=== PATIENT | female | born 1955 | race Caucasian/White ===

== ENCOUNTER 2018-05-29 14:37 | Inpatient (IN) ==
[2018-05-29] MEDS ORDERED: IPRATROPIUM/ALBUTEROL 3 ML AMPUL.NEB NEB ONE ×3 (14:43→18:40)
[2018-05-29] MEDS ORDERED: 0.9 % SODIUM CHLORIDE 1,000 ML IV ONE (14:43)
[2018-05-29] MEDS ORDERED: methylPREDNISolone SOD SUCC 125 MG/2 ML VIAL IV ONE (14:50)
--- NOTE | 2018-05-29 14:52 | Emergency Department Note ---
SOB HPI - General Chief Complaint: Shortness of Breath/Dyspnea Stated Complaint: Shortness of breath Time Seen by Provider: 05/29/18 14:42 Source: patient Mode of arrival: ambulatory Limitations: no limitations - History of Present Illness This patient has a history of COPD and has been a little short of breath and wheezing with cough since last Wednesday which was about 6 or 7 days ago. She says she try to sleep today but woke up and sweats and was too short of breath so came to the hospital. Her cough does bring up some yellow-green phlegm. She continues to smoke a pack per day despite her COPD. No chest pain. - Related Data Previous Rx's Medication Instructions Recorded albuterol sulfate HFA 90 See Dose Instructions INHALATION 07/08/17 mcg/actuation aerosol inhaler Q4H PRN #36 g alendronate 70 mg tablet 70 mg PO QWEEK #52 tab 07/08/17 budesonide-formoterol HFA 160 2 inh INHALATION TID #18 g 07/08/17 mcg-4.5 mcg/actuation aerosol inhaler hydrocodone 10 mg-acetaminophen 1 tab PO Q4H PRN #100 tab 04/15/18 325 mg tablet Allergies Allergy/AdvReac Type Severity Reaction Status Date / Time lorazepam [From Ativan] Allergy Unknown Confusion Verified 01/20/18 07:54 silver Allergy Unknown Rash Verified 01/20/18 07:54 cats Allergy Unknown Rash Uncoded 01/20/18 07:54 cherries Allergy Unknown Rash Uncoded 01/20/18 07:54 fluconazole Allergy Unknown Hallucinati Uncoded 01/20/18 07:54 ng Review of Systems All systems ED: reviewed and negative except as stated. Past Medical History - Past Medical History Medical history: Reports: asthma, COPD, osteoporosis, other (Pulmonary hypertension, uterine fibroids, chronic low back pain, adrenal adenoma) Psychiatric history: Reports: no psych history MANAGER RETENTION history: Reports: bilateral tubal ligation Surgical history ED: Reports: orthopedic, other (Elbow replacement, wrist), other (Partial nephrectomy right, bowel obstruction, adenoids) - Social History smoking status: Current every day smoker Alcohol use: Reports: Heavy Physical Exam Limitations: no limitations General appearance: alert Head: atraumatic Eye: Present: normal appearance ENT: normal exam Neck: Present: normal inspection Chest: Present: normal inspection Respiratory: Present: wheezes, prolonged expiratory phase Cardiovascular: Present: regular rate, normal rhythm, normal heart sounds Abdominal: Present: soft. Absent: distention, tenderness Neurological: Present: alert Psychiatric: Present: normal affect Skin: Present: warm, dry, intact Course Vital Signs Temperature 98.2 F 05/29/18 14:39 Pulse Rate 107 H 05/29/18 14:39 Respiratory Rate 26 H 05/29/18 14:39 Blood Pressure 143/127 05/29/18 14:39 Pulse Oximetry (%) 66 L 05/29/18 14:39 Temperature 98.2 F 05/29/18 14:39 Pulse Rate 87 05/29/18 18:32 Respiratory Rate 23 H 05/29/18 18:32 Blood Pressure 159/87 05/29/18 18:31 Pulse Oximetry (%) 94 05/29/18 18:32 Shortness of Breath/Dyspnea - MDM Narrative Medical decision making narrative: Chest x-ray looked okay and lab work was unremarkable. She was given 3 DuoNeb Solu-Medrol Zithromax and did not feel like she could go home at the end of 4- 1/2 hours. She was unable to blow peak flow. - Lab Data Lab results reviewed: Yes I reviewed the patient's lab results. Result diagrams: 05/29/18 14:49 05/29/18 14:49 Lab Results 05/29/18 05/29/18 05/29/18 Range/Units 14:44 14:49 14:49 WBC 12.0 H (4.5-11.0) K/mcL RBC 5.55 H (4.00-5.20) M/mcL Hgb 16.9 H (12.0-15.0) g/dL Hct 52.2 H (36.0-48.0) % MCV 94.0 (80.0-100.0) fL MCH 30.4 (26.0-34.0) pg MCHC 32.4 (31.0-36.0) g/dL RDW 14.6 H (11.5-14.5) % Plt Count 232 (140-440) K/mcL MPV 10.7 H (7.4-10.4) fL Gran % 64.6 (38.0-78.0) % Lymph % (Auto) 23.7 (15.5-49.0) % Nash % (Auto) 10.9 (1.0-12.0) % Eos % (Auto) 0.3 (0.0-7.0) % Baso % (Auto) 0.5 (0.0-2.0) % Gran # 7.7 (1.8-8.0) K/mcL Lymph # (Auto) 2.8 (1.5-4.8) K/mcL Nash # (Auto) 1.3 H (0.1-0.9) K/mcL Eos # (Auto) 0 (0.0-0.7) K/mcL Baso # (Auto) 0.1 (0.0-0.3) K/mcL VBG Lactic Acid (0.5-2.0) mmol/L Sodium 140 (133-145) mmol/L Potassium 4.2 (3.3-5.1) mmol/L Chloride 96 (96-108) mmol/L Carbon Dioxide 29 (22-30) mmol/L Anion Gap 15.0 (8-16) BUN 8 (8-23) mg/dl Creatinine 0.6 (0.6-1.1) mg/dl GFR Calculation 97 Glucose 102 (70-105) mg/dL Calcium 9.4 (8.6-10.4) mg/dl Total Bilirubin 0.2 (0.0-1.0) mg/dL AST 33 (0-37) U/l ALT 29 (0-40) U/l Alkaline Phosphatase 73 (39-117) U/L Total Creatine Kinase 129 (24-170) IU/L CK-MB (CK-2) 7.1 H (0-2.9) ng/ml Troponin T 0.02 (0-0.03) ng/ml Total Protein 7.3 (5.9-8.4) gm/dL Albumin 3.9 (3.2-5.2) gm/dL Globulin 3.4 (2.2-3.7) gm/dL Albumin/Globulin Ratio 1.1 (1.0-2.3) Procalcitonin (<0.10) ng/mL 05/29/18 05/29/18 05/29/18 Range/Units 14:50 14:50 14:50 WBC (4.5-11.0) K/mcL RBC (4.00-5.20) M/mcL Hgb (12.0-15.0) g/dL Hct (36.0-48.0) % MCV (80.0-100.0) fL MCH (26.0-34.0) pg MCHC (31.0-36.0) g/dL RDW (11.5-14.5) % Plt Count (140-440) K/mcL MPV (7.4-10.4) fL Gran % (38.0-78.0) % Lymph % (Auto) (15.5-49.0) % Nash % (Auto) (1.0-12.0) % Eos % (Auto) (0.0-7.0) % Baso % (Auto) (0.0-2.0) % Gran # (1.8-8.0) K/mcL Lymph # (Auto) (1.5-4.8) K/mcL Nash # (Auto) (0.1-0.9) K/mcL Eos # (Auto) (0.0-0.7) K/mcL Baso # (Auto) (0.0-0.3) K/mcL VBG Lactic Acid 2.8 H (0.5-2.0) mmol/L Sodium (133-145) mmol/L Potassium (3.3-5.1) mmol/L Chloride (96-108) mmol/L Carbon Dioxide (22-30) mmol/L Anion Gap (8-16) BUN (8-23) mg/dl Creatinine (0.6-1.1) mg/dl GFR Calculation Glucose (70-105) mg/dL Calcium (8.6-10.4) mg/dl Total Bilirubin (0.0-1.0) mg/dL AST (0-37) U/l ALT (0-40) U/l Alkaline Phosphatase (39-117) U/L Total Creatine Kinase 126 (24-170) IU/L CK-MB (CK-2) (0-2.9) ng/ml Troponin T (0-0.03) ng/ml Total Protein (5.9-8.4) gm/dL Albumin (3.2-5.2) gm/dL Globulin (2.2-3.7) gm/dL Albumin/Globulin Ratio (1.0-2.3) Procalcitonin < 0.05 (<0.10) ng/mL - Radiology Data Radiology results reviewed: Yes I reviewed the patient's radiology results. Disposition Pt seen by OPERATIONS MANAGER ASSISTANT/PA only: No Clinical Impression: COPD exacerbation Disposition: Xfer As Inpt ([facility]) Condition: Good Referrals: Isaias Viveros MD [Primary Care Provider] - Time of Disposition: 19:07
[2018-05-29] MEDS ORDERED: ASPIRIN 81 MG TAB.CHEW CHEWED ONE (14:53)
[2018-05-29] MEDS ORDERED: AZITHROMYCIN 500 MG in DEXTROSE 5% IN WATER 250 ML IV ONE (15:16)
[2018-05-29 15:42] LABS: Basophils # (Auto) 0.1 K/mcL (0.0-0.3); Basophils % (Auto) 0.5 % (0.0-2.0); Eosinophils # (Auto) 0 K/mcL (0.0-0.7); Eosinophils % (Auto) 0.3 % (0.0-7.0); Granulocytes % (Auto) 64.6 % (38.0-78.0); Lymphocytes # (Auto) 2.8 K/mcL (1.5-4.8); Lymphocytes % (Auto) 23.7 % (15.5-49.0); Mean Corpuscular HGB Conc 32.4 g/dL (31.0-36.0); Monocytes # (Auto) 1.3 K/mcL (0.1-0.9); Monocytes % (Auto) 10.9 % (1.0-12.0); Platelet Count 232 K/mcL (140-440); RBC 5.55 M/mcL (4.00-5.20); Red Cell Distribution Width 14.6 % (11.5-14.5)
[2018-05-29 16:05] LABS: ALT/SGPT 29 U/l (0-40); Albumin 3.9 gm/dL (3.2-5.2); Albumin/Globulin Ratio 1.1 (1.0-2.3); Alkaline Phosphatase 73 U/L (39-117); Blood Urea Nitrogen 8 mg/dl (8-23); Creatine Kinase 129 IU/L (24-170); Creatine Kinase MB 7.1 ng/ml (0-2.9)
[2018-05-29] MEDS ORDERED: LACTATED RINGERS 1,000 ML IV ONE (16:20)
--- NOTE | 2018-05-29 18:10 | XRay Report ---
CLINICAL INFORMATION: dyspnea COMPARISON: 12/20/2017 FINDINGS: Heart size, mediastinum and pulmonary vessels are unremarkable. COPD changes again noted. Small infiltrate appears to be developing in the posterior medial right lower lobe. No effusions. IMPRESSION: Small developing infiltrate - posterior medial right lower lobe Underlying COPD Interpreted and Authenticated by: Steven Awad 05/29/18
[2018-05-29] MEDS ORDERED: ACETAMINOPHEN 325 MG TABLET PO PRN (20:21)
[2018-05-29] MEDS ORDERED: oxyCODONE HCL 5 MG TABLET PO PRN (20:21)
[2018-05-29] MEDS ORDERED: ONDANSETRON 4 MG/2 ML VIAL IV PRN (20:21)
[2018-05-29] MEDS ORDERED: NALOXONE HCL 0.4 MG/ML VIAL IV PRN (20:21)
[2018-05-29] MEDS: ALBUTEROL SULFATE 2.5 MG/3 ML NEBULIZER NEB PRN ×2 (20:40→22:53)
[2018-05-29] MEDS: LEVOFLOXACIN 750 MG/150 ML BAG IV SCH (21:02)
[2018-05-29] MEDS: HEPARIN 5,000 UNIT/ML VIAL SQ SCH (21:03)
[2018-05-29] MEDS ORDERED: MAGNESIUM SULFATE 2 GM/50 ML BAG IV ONE (21:18)
[2018-05-29] MEDS ORDERED: NICOTINE 21 MG PATCH TOPICAL ONE (21:19)
[2018-05-29] MEDS ORDERED: ALBUTEROL SULFATE 1 PUFF INHALER INH PRN (21:22)
--- NOTE | 2018-05-29 21:28 | Internal Med History&Physical ---
Medical - H&P: HPI Patient information: Note initiated : 05/29/18 at 9:24 pm Service Date, if different from initiated Date: [] Patient: Emelia Candelaria a 63 y/o F admitted on 05/29/18 for Shortness of breath. Chief Complaint: [] History of present illness: Ms. Candelaria is a 63 year old F with history of COPD, active smoker presents to the emergency room for shortness of breath going on for the last 6 days. The pa bereket notes her symptoms started on Wednesday and has progressively gotten worse since then. Last week and she was at the function from [facility] with a lot of people. She notes her symptoms started a day after that. She admits to having some cough with yellowish sputum subjective sensations of fever runny nose watery eyes. Her symptoms have progressively gotten worse to a point that she is unable to ambulate even within the room without significant shortness of breath. The patient therefore came to the emergency room for further evaluation. The patient admits to having cough associated with chest pain. She denies any nausea vomiting had some diarrhea denies any new joint pains no depression or anxiety denies any new skin rashes any changes in vision hearing or difficulty in swallowing she denies any bleeding or black stools. In the emergency room the patient was afebrile, heart rate 85 blood pressure 133 x 77 saturating in the 60s on room air. The patient had a WBC count of 12.2, hemoglobin 16.6 platelets 232 Sodium 140 potassium 4.2 bicarbonate 29 creatinine 0.6 glucose 97 lactic acid 2.8 troponin negative CK 126 pro calcitonin less than 0.05. Chest x-ray shows COPD and a new developing infiltrate EKG shows sinus tachycardia Patient is being admitted to the hospital for further management, in the emergency room patient received duo nebs steroids and Zithromax All systems: reviewed and no additional remarkable complaints except as stated (As per HPI rest negative) Medical - H&P: PMH Medical history: Medical History (Last Reviewed 01/20/18 @ 08:01 by Isaias Viveros MD) Osteoporosis (Chronic) Tobacco abuse (Chronic) Renal mass (Chronic 07/24/14) Pulmonary hypertension (Chronic) Kidney mass (Chronic 11/20/13) Uterine fibroid (Chronic) Degeneration of lumbar intervertebral disc (Chronic) Chronic pain syndrome (Chronic) COPD (chronic obstructive pulmonary disease) (Chronic) Asthma (Chronic) Alcohol abuse (Chronic) Adrenal adenoma (Chronic) Abdominal pain (Resolved 08/18/13) Abnormal finding on radiology exam (Resolved) Chronic pain (Resolved) Diarrhea (Resolved) Disorder of kidney and ureter (Resolved) Hypoalbuminemia (Resolved) Hyponatremia (Resolved) Malnutrition (Resolved) Metabolic acidosis (Resolved) Nocturia (Resolved) Pelvic abscess (Resolved 09/19/13) Sepsis (Resolved 08/18/13) Urinary stream slowing (Resolved) Surgical history: Past Surgical History (Last Updated 01/20/18 @ 08:34 by Isaias Viveros MD) Hx of partial nephrectomy (Chronic 07/24/14) History of liver biopsy (Resolved 07/24/14) Hx of elbow surgery (Resolved) Hx of hand surgery (Resolved) Pertinent family history: Family History (Last Reviewed 01/20/18 @ 08:01 by Isaias Viveros MD) mother Malignant neoplasm of bone Malignant neoplasm sister Malignant neoplasm of breast Malignant neoplasm father Cardiac disease Medical - H&P: Meds Home Medications Medication Instructions Recorded Confirmed Type albuterol sulfate HFA 90 See Dose Instructions INHALATION 07/08/17 05/29/18 Rx mcg/actuation aerosol inhaler Q4H PRN #36 g alendronate 70 mg tablet 70 mg PO QWEEK #52 tab 07/08/17 05/29/18 Rx budesonide-formoterol HFA 160 2 inh INHALATION TID #18 g 07/08/17 05/29/18 Rx mcg-4.5 mcg/actuation aerosol inhaler hydrocodone 10 mg-acetaminophen 1 tab PO Q4H PRN #100 tab 04/15/18 05/29/18 Rx 325 mg tablet Allergies Allergy/AdvReac Type Severity Reaction Status Date / Time silver Allergy Mild Rash Verified 05/29/18 20:28 lorazepam [From Ativan] AdvReac Mild Confusion Verified 05/29/18 20:28 cats Allergy Mild Rash Uncoded 05/29/18 20:28 cherries Allergy Mild Rash Uncoded 05/29/18 20:28 fluconazole AdvReac Mild Hallucinati Uncoded 05/29/18 20:28 ng Medical - H&P: Exam - Constitutional Vitals: Temp Pulse Resp BP Pulse Ox 98.2 F 95 H 24 H 150/90 92 05/29/18 14:39 05/29/18 21:20 05/29/18 21:20 05/29/18 20:01 05/29/18 20:01 Exam: GENERAL: The patient is a well-developed, well-nourished in no apparent distress. Is alert and oriented x3. VITAL SIGNS: Reviewed and as noted elsewhere. HEENT: Head is normocephalic and atraumatic. Extraocular muscles are intact. Pupils are equal, round, and reactive to light. Nares appeared normal. Mouth appears any without lesions. Mucous membranes are dry. NECK: Normal to inspection, Supple, No lymphadenopathy or thyromegaly. LUNGS: Air entry equal on both sides, significantly diminished air entry bilaterally, prolonged expiratory phase, bilateral expiratory wheezing noted. Patient is speaking 6-8 words at a time, and is using some accessory muscles. She had chest walked a short distance and is not back yet to her baseline respiratory status HEART: Regular rate and rhythm normal, S1 and S2 heard, no Gallop, S3 or Rub Noted, No Gross murmur heard. [Distant heart sounds] ABDOMEN: Soft, nontender, and nondistended. Positive bowel sounds. No hepatosplenomegaly was noted. EXTREMITIES: No cyanosis, clubbing, rash, lesions or edema. NEUROLOGIC: Cranial nerves II through XII are grossly intact. Motor and Sensory System Grossly Intact PSYCHIATRIC: Normal affect, Normal Mood. Appropriate Behavior. SKIN: No ulceration or wounds noted, No jaundice, No rash noted. Medical - H&P: Reslt - Labs CBC & Chem 7: 05/29/18 14:49 05/29/18 14:49 Labs: Short CBC 05/29/18 Range/Units 14:49 WBC 12.0 H (4.5-11.0) K/mcL Hgb 16.9 H (12.0-15.0) g/dL Hct 52.2 H (36.0-48.0) % Plt Count 232 (140-440) K/mcL [facility] 05/29/18 14:49 Sodium 140 Potassium 4.2 Chloride 96 Carbon Dioxide 29 BUN 8 Creatinine 0.6 Glucose 102 Calcium 9.4 Cardiac Enzymes 05/29/18 05/29/18 05/29/18 Range/Units 14:44 14:49 14:50 Total Creatine Kinase 129 126 (24-170) IU/L CK-MB (CK-2) 7.1 H (0-2.9) ng/ml Troponin T 0.02 (0-0.03) ng/ml Liver Function 05/29/18 Range/Units 14:49 Total Bilirubin 0.2 (0.0-1.0) mg/dL AST 33 (0-37) U/l ALT 29 (0-40) U/l Alkaline Phosphatase 73 (39-117) U/L Albumin 3.9 (3.2-5.2) gm/dL Medical - H&P: A/P - Narrative A/P Narrative: A/P Acute exacerbation of COPD Acute hypoxic resp failure Pneumonia with COPD Active smoker 2.5pack daily Lactic acidosis Degenerative joint disease. Osteoporosis Pulmonary Hypertension Plan Admit to med surg Monitor closely, continuos pulse oximeter if worsens, will move to PCU, start on bipap Duonebs q4hrs, albuterol q2hprn PO prednisone IV levofloxacin 2gms IV mag sulphate for bronchodilation. nicotine patch DVT hep sq Diet regular Full code. Social History - Social History occupational status: disabled - Tobacco smoking status: Current every day smoker - Alcohol alcohol intake frequency: 2+ drinks per day - Substance use substance use type: marijuana
[2018-05-29] MEDS: 0.9 % SODIUM CHLORIDE 10 ML SYRINGE IV SCH (22:00)
[2018-05-29] MEDS: Budesonide/Formoterol Fumarate [Symbicort] 160-4.5 mcg Inhaler INH SCH (22:54)
[2018-05-29] MEDS: IPRATROPIUM/ALBUTEROL 3 ML AMPUL.NEB NEB SCH (22:56)
[2018-05-30] MEDS: 0.9 % SODIUM CHLORIDE 10 ML SYRINGE IV SCH ×4 (00:43→22:43)
[2018-05-30] MEDS: ALBUTEROL SULFATE 2.5 MG/3 ML NEBULIZER NEB PRN (01:09)
[2018-05-30] MEDS: IPRATROPIUM/ALBUTEROL 3 ML AMPUL.NEB NEB SCH ×6 (04:11→23:05)
[2018-05-30 06:20] LABS: Basophils # (Auto) 0 K/mcL (0.0-0.3); Basophils % (Auto) 0.2 % (0.0-2.0); Eosinophils # (Auto) 0 K/mcL (0.0-0.7); Eosinophils % (Auto) 0 % (0.0-7.0); Granulocytes % (Auto) 78.6 % (38.0-78.0); Lymphocytes # (Auto) 0.9 K/mcL (1.5-4.8); Mean Cell Volume 94.1 fL (80.0-100.0); Mean Corpuscular HGB Conc 32.7 g/dL (31.0-36.0); Monocytes # (Auto) 0.5 K/mcL (0.1-0.9); Monocytes % (Auto) 7.2 % (1.0-12.0); Platelet Count 223 K/mcL (140-440); RBC 5.15 M/mcL (4.00-5.20); Red Cell Distribution Width 14.5 % (11.5-14.5)
[2018-05-30 06:33] LABS: ALT/SGPT 26 U/l (0-40); Albumin 3.5 gm/dL (3.2-5.2); Albumin/Globulin Ratio 1.1 (1.0-2.3); Alkaline Phosphatase 63 U/L (39-117); Bilirubin,Direct < 0.2 mg/dL (0.0-0.3); Blood Urea Nitrogen 10 mg/dl (8-23); Gamma Glutamyl Transpeptidase 23 U/L (5-36); Uric Acid 2.5 mg/dL (2.5-8.0)
[2018-05-30] MEDS: Budesonide/Formoterol Fumarate [Symbicort] 160-4.5 mcg Inhaler INH SCH ×3 (07:25→22:45)
[2018-05-30] MEDS: HEPARIN 5,000 UNIT/ML VIAL SQ SCH ×2 (08:28→22:43)
[2018-05-30] MEDS: OSELTAMIVIR PHOSPHATE 75 MG CAPSULE PO SCH ×2 (08:28→22:43)
[2018-05-30] MEDS: NICOTINE 21 MG PATCH TOPICAL SCH (08:28)
[2018-05-30] MEDS: predniSONE 20 MG TABLET PO SCH (08:28)
[2018-05-30] MEDS: LEVOFLOXACIN 750 MG/150 ML BAG IV SCH (13:24)
--- NOTE | 2018-05-30 15:32 | Internal Med Progress Note ---
Medical - PN: Subj Patient information: Note initiated : 05/30/18 at 3:29 pm Service Date, if different from initiated Date: [] Patient: Emelia Candelaria a 63 y/o F admitted on 05/29/18 for Shortness of breath. Chief Complaint: [] Interval history: Ms. Candelaria is a 63 year old F with history of COPD, active smoker presents to the emergency room for shortness of breath going on for the last 6 days. The patient notes her symptoms started on Wednesday and has progressively gotten worse since then. Last week and she was at the [facility] from [facility] with a lot of people. She notes her symptoms started a day after that. She admits to having some cough with yellowish sputum subjective sensations of fever runny nose watery eyes. Her symptoms have progressively gotten worse to a point that she is unable to ambulate even within the room without significant shortness of breath. The patient therefore came to the emergency room for further evaluation. The patient admits to having cough associated with chest pain. She denies any nausea vomiting had some diarrhea denies any new joint pains no depression or anxiety denies any new skin rashes any changes in vision hearing or difficulty in swallowing she denies any bleeding or black stools. In the emergency room the patient was afebrile, heart rate 85 blood pressure 133 x 77 saturating in the 60s on room air. The patient had a WBC count of 12.2, hemoglobin 16.6 platelets 232 Sodium 140 potassium 4.2 bicarbonate 29 creatinine 0.6 glucose 97 lactic acid 2.8 troponin negative CK 126 pro calcitonin less than 0.05. Chest x-ray shows COPD and a new developing infiltrate EKG shows sinus tachycardia Patient is being admitted to the hospital for further management, in the emergency room patient received duo nebs steroids and Zithromax 05/30 Patient seen and examined, she does not feel significant improvement however to me appears somewhat more comfortable. She still has shortness of breath and cough. Labs are stable. Influenza A test is positive started the patient on Tamiflu Pertinent ROS: Denies headache, dizziness Denies chest pain, palpitations Shortness of breath and cough present Denies abdominal pain, nausea or vomiting. - Constitutional Vitals: Vital Signs Temp Pulse Resp BP Pulse Ox 97.1 F 85 22 128/76 96 05/30/18 15:01 05/30/18 15:01 05/30/18 15:01 05/30/18 15:01 05/30/18 15:01 Period Temp Pulse Resp BP Sys/Tomas Pulse Ox Last 24 Hr 97.1 F-98.2 F 72-99 15-38 124-159/73-106 91-100 Intake and Output 05/30/18 05/30/18 05/30/18 05:59 13:59 21:59 Intake Total 1050 500 800 Output Total 775 200 150 Balance 275 300 650 Weight 101 lb Patient Weight 05/31/18 05:59 Weight 101 lb Intake & Output: Intake & Output 05/30/18 05/30/18 05/30/18 05:59 13:59 21:59 Intake Total 1050 500 800 Output Total 775 200 150 Balance 275 300 650 Weight 101 lb Intake: IV 150 Oral 900 500 800 Output: Void Amount 775 200 150 Other: Meal Lunch Percent of Meal Consumed 50% Feeding Ability Independent Urine Appearance Cloudy Urine Color Straw Dark Yellow Dark Yellow Urine Odor Normal Strong Stool Size Small Stool Color Brown Stool Consistency Soft # Voids 1 # Bowel Movements 1 Exam: Constitutional; Afebrile, cooperative, alert, not in distress. Eyes- No icterus, , No periorbital swelling Ears- Ext ear normal, hearing normal to conversation. Neck- Midline trachea, supple Respiratory system: Air Entry equal on both sides, decreased air entry bilaterally however somewhat better than yesterday, patient continues to have bilateral expiratory wheezing. appears in mild resp distress CVS- Rate rhythm regular, S1,S2 heard, no gallop, no rub. Abdomen- Soft nontender abdomen, no organomegaly, no tenderness, no guarding or rigidity, WEATHER [employer]ECA[employer]- AOOx3, moving all extremities, no gross focal deficit noted. Medical - PN: Obj Da - Labs CBC & Chem 7: 05/30/18 04:14 05/30/18 04:14 Labs: Abnormal Lab Results 05/30/18 05/30/18 05/29/18 04:14 04:14 14:50 WBC RBC Hgb 15.8 H Hct 48.4 H RDW MPV Gran % 78.6 H Lymph % (Auto) 14.0 L Lymph # (Auto) 0.9 L Otero # (Auto) VBG Lactic Acid 2.8 H Creatinine 0.5 L Glucose 113 H Lactate Dehydrogenase 323 H CK-MB (CK-2) 05/29/18 05/29/18 14:49 14:49 WBC 12.0 H RBC 5.55 H Hgb 16.9 H Hct 52.2 H RDW 14.6 H MPV 10.7 H Gran % Lymph % (Auto) Lymph # (Auto) Otero # (Auto) 1.3 H VBG Lactic Acid Creatinine Glucose Lactate Dehydrogenase CK-MB (CK-2) 7.1 H Meds: Medications Acetaminophen (Tylenol) 650 mg PO Q6HP PRN PRN Reason: PAIN/FEVER > 101 Albuterol Sulfate (Ventolin) 2.5 mg NEB Q2HP PRN PRN Reason: Shortness Of Breath Last Admin: 05/30/18 01:09 Dose: 2.5 mg Documented by: Albuterol Sulfate (Ventolin) 1 puff INH Q4H PRN PRN Reason: asthma Albuterol/Ipratropium (Duoneb) 3 ml NEB Q4HRT [facility] Last Admin: 05/30/18 15:00 Dose: 3 ml Documented by: Heparin Sodium (Porcine) (Heparin) 5,000 unit SQ Q12 [facility] Last Admin: 05/30/18 08:28 Dose: 5,000 unit Documented by: Levofloxacin (Levaquin) 750 mg in 150 mls @ 100 mls/hr IV Q24H [facility] Last Admin: 05/30/18 13:24 Dose: 100 mls/hr Documented by: Naloxone HCl (Narcan) 0.1 mg IV Q2MIN PRN PRN Reason: Opiate Reversal Nicotine (Nicoderm) 21 mg TOPICAL DAILY@1000 [facility] Last Admin: 05/30/18 08:28 Dose: 21 mg Documented by: Ondansetron HCl (Zofran) 4 mg IV Q6HP PRN PRN Reason: Nausea And Vomiting Oseltamivir Phosphate (Tamiflu) 75 mg PO BID [facility] Last Admin: 05/30/18 08:28 Dose: 75 mg Documented by: Oxycodone HCl (Roxicodone) 5 mg PO Q4HP PRN PRN Reason: pain not responding to apap. Budesonide/Formoterol Fumarate [Symbicort] 160-4.5 Mcg Inhaler 2 dose INH TID [facility] Last Admin: 05/30/18 15:04 Dose: 2 dose Documented by: Prednisone (Prednisone) 40 mg PO QAC [facility] Last Admin: 05/30/18 08:28 Dose: 40 mg Documented by: Sodium Chloride (Saline Flush) 10 ml IV Q8 [facility] Last Admin: 05/30/18 13:24 Dose: 10 ml Documented by: Medical - PN: A/P - Time Spent With Patient Total time spent is greater than 50% in coordination of care (as documented) at patient's floor/unit and/or counseling patient: - Narrative A/P Narrative: A/P Acute exacerbation of COPD Acute hypoxic resp failure Pneumonia with COPD Active smoker 2.5pack daily Lactic acidosis Degenerative joint disease. Osteoporosis Pulmonary Hypertension Plan Monitor closely, continuos pulse oximeter if worsens, will move to PCU, start on bipap ABG is reassuring, Ph 7.45/49/82 Duonebs q4hrs, albuterol q2hprn PO prednisone IV levofloxacin Tamiflu nicotine patch DVT hep sq Diet regular Full code. Medical - PN: Qual - Stroke Symptom Onset Unknown: No - VTE Deep Vein Thrombosis/Pulmonary Embolism Present on Admission: No
[2018-05-31] MEDS: IPRATROPIUM/ALBUTEROL 3 ML AMPUL.NEB NEB SCH ×6 (02:26→22:51)
[2018-05-31] MEDS: 0.9 % SODIUM CHLORIDE 10 ML SYRINGE IV SCH ×3 (05:46→20:28)
[2018-05-31 06:37] LABS: Basophils # (Auto) 0 K/mcL (0.0-0.3); Basophils % (Auto) 0.4 % (0.0-2.0); Eosinophils # (Auto) 0 K/mcL (0.0-0.7); Eosinophils % (Auto) 0.1 % (0.0-7.0); Lymphocytes # (Auto) 1.4 K/mcL (1.5-4.8); Lymphocytes % (Auto) 25.7 % (15.5-49.0); Mean Cell Volume 92.9 fL (80.0-100.0); Mean Corpuscular HGB Conc 32.8 g/dL (31.0-36.0); Monocytes # (Auto) 0.6 K/mcL (0.1-0.9); Monocytes % (Auto) 11.8 % (1.0-12.0); Platelet Count 219 K/mcL (140-440); RBC 4.58 M/mcL (4.00-5.20); Red Cell Distribution Width 14.8 % (11.5-14.5)
[2018-05-31 06:55] LABS: ALT/SGPT 18 U/l (0-40); Albumin 3.1 gm/dL (3.2-5.2); Albumin/Globulin Ratio 1.2 (1.0-2.3); Alkaline Phosphatase 48 U/L (39-117); Bilirubin,Direct < 0.2 mg/dL (0.0-0.3); Blood Urea Nitrogen 8 mg/dl (8-23); Gamma Glutamyl Transpeptidase 19 U/L (5-36); Uric Acid 2.3 mg/dL (2.5-8.0)
[2018-05-31] MEDS: HEPARIN 5,000 UNIT/ML VIAL SQ SCH ×2 (08:48→20:26)
[2018-05-31] MEDS: LEVOFLOXACIN 750 MG/150 ML BAG IV SCH (08:48)
[2018-05-31] MEDS: OSELTAMIVIR PHOSPHATE 75 MG CAPSULE PO SCH ×2 (08:48→20:27)
[2018-05-31] MEDS: predniSONE 20 MG TABLET PO SCH (08:48)
[2018-05-31] MEDS: NICOTINE 21 MG PATCH TOPICAL SCH (08:49)
[2018-05-31] MEDS: Budesonide/Formoterol Fumarate [Symbicort] 160-4.5 mcg Inhaler INH SCH ×3 (08:49→20:29)
--- NOTE | 2018-05-31 11:19 | XRay Report ---
HISTORY: Chest pain and shortness of breath FINDINGS: There is a vague 1.6 cm nodular density above left costophrenic sulcus. This is a chronic finding with no appreciable growth since the prior chest CT done on 12/06/15. The lungs are otherwise clear and well expanded. There is no evidence of pneumonia or pleural effusion. The heart size and pulmonary vasculature are normal. The small right lower lobe infiltrate which was noted on the prior chest x-ray done on 05/29/18 is no longer identified. IMPRESSION: Stable left lower lobe pulmonary nodule and no acute abnormality Interpreted and Authenticated by: Dheeraj Russell 05/31/18
[2018-05-31] MEDS ORDERED: VANCOMYCIN PER PHARMACY IV SCH (11:26)
[2018-05-31] MEDS ORDERED: FUROSEMIDE 20 MG/2 ML VIAL IV ONE (11:28)
[2018-05-31 11:57] LABS: Creatine Kinase MB 6.6 ng/ml (0-2.9); Myoglobin 60 ng/ml (25-58)
[2018-05-31] MEDS ORDERED: VANCOMYCIN 750 MG in 0.9 % SODIUM CHLORIDE 250 ML IV SCH (12:00)
--- NOTE | 2018-05-31 16:15 | Internal Med Progress Note ---
Medical - PN: Subj Patient information: Note initiated : 05/31/18 at 4:12 pm Service Date, if different from initiated Date: [] Patient: Emelia Candelaria a 63 y/o F admitted on 05/29/18 for Shortness of breath. Chief Complaint: [] Interval history: Ms. Candelaria is a 63 year old F with history of COPD, active smoker presents to the emergency room for shortness of breath going on for the last 6 days. The patient notes her symptoms started on Wednesday and has progressively gotten worse since then. Last week and she was at the [facility] from [facility] with a lot of people. She notes her symptoms started a day after that. She admits to having some cough with yellowish sputum subjective sensations of fever runny nose watery eyes. Her symptoms have progressively gotten worse to a point that she is unable to ambulate even within the room without significant shortness of breath. The patient therefore came to the emergency room for further evaluation. The patient admits to having cough associated with chest pain. She denies any nausea vomiting had some diarrhea denies any new joint pains no depression or anxiety denies any new skin rashes any changes in vision hearing or difficulty in swallowing she denies any bleeding or black stools. In the emergency room the patient was afebrile, heart rate 85 blood pressure 133 x 77 saturating in the 60s on room air. The patient had a WBC count of 12.2, hemoglobin 16.6 platelets 232 Sodium 140 potassium 4.2 bicarbonate 29 creatinine 0.6 glucose 97 lactic acid 2.8 troponin negative CK 126 pro calcitonin less than 0.05. Chest x-ray shows COPD and a new developing infiltrate EKG shows sinus tachycardia Patient is being admitted to the hospital for further management, in the emergency room patient received duo nebs steroids and Zithromax 05/30 Patient seen and examined, she does not feel significant improvement however to me appears somewhat more comfortable. She still has shortness of breath and cough. Labs are stable. Influenza A test is positive started the patient on Tamiflu 05/31 Pt seen examined no acute overnight issues still is short of breath x ray shows no new changes, had chest pain this AM, normal ekg, trop neg, d dimer mildly elevated, low supicion for PE. Pertinent ROS: Denies headache, dizziness chest pain this AM, resolved, no palpitations still has shortness of breath, Denies abdominal pain, nausea or vomiting. - Constitutional Vitals: Vital Signs Temp Pulse Resp BP Pulse Ox 98.1 F 95 H 20 128/82 91 05/31/18 14:58 05/31/18 15:33 05/31/18 15:33 05/31/18 14:58 05/31/18 14:58 Period Temp Pulse Resp BP Sys/Tomas Pulse Ox Last 24 Hr 97.6 F-98.6 F 85-105 18-25 128-168/78-104 91-98 Intake and Output 05/31/18 05/31/18 05/31/18 05:59 13:59 21:59 Intake Total 500 550 240 Output Total 675 400 550 Balance -175 150 -310 Intake & Output: Intake & Output 05/31/18 05/31/18 05/31/18 05:59 13:59 21:59 Intake Total 500 550 240 Output Total 675 400 550 Balance -175 150 -310 Intake: IV 250 Vancomycin 750 mg In Sodium 250 Chloride 0.9% 250 ml @ 250 mls/ hr IV Q12H [facility] Rx#:[id number] Oral 500 300 240 Output: Void Amount 675 400 550 Other: Meal Lunch Percent of Meal Consumed 50% Feeding Ability Independent Urine Appearance Clear Clear Clear Urine Color Straw Pale Straw Urine Odor Normal Strong Normal # Voids 2 1 Exam: Constitutional; Afebrile, cooperative, alert, not in distress. Eyes- No icterus, , No periorbital swelling Ears- Ext ear normal, hearing normal to conversation. Neck- Midline trachea, supple Respiratory system: Air Entry equal on both sides, mild basilar crackles, improved air entry compared to yesterday, wheezing improved (pt however subjectively does not feel much improved) CVS- Rate rhythm regular, S1,S2 heard, no gallop, no rub. 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 Medical - PN: Obj Da - Labs CBC & Chem 7: 05/31/18 04:50 05/31/18 04:50 Labs: Abnormal Lab Results 05/31/18 05/31/18 05/31/18 11:00 11:00 04:50 WBC RBC Hgb Hct RDW MPV Gran % Lymph % (Auto) Lymph # (Auto) Door # (Auto) D-Dimer 0.69 H VBG Lactic Acid Carbon Dioxide 33 H Creatinine 0.4 L Glucose Uric Acid 2.3 L Phosphorus 2.4 L Lactate Dehydrogenase CK-MB (CK-2) 6.6 H Myoglobin 60 H Total Protein 5.7 L Albumin 3.1 L 05/31/18 05/30/18 05/30/18 04:50 04:14 04:14 WBC RBC Hgb 15.8 H Hct 48.4 H RDW 14.8 H MPV Gran % 78.6 H Lymph % (Auto) 14.0 L Lymph # (Auto) 1.4 L 0.9 L Door # (Auto) D-Dimer VBG Lactic Acid Carbon Dioxide Creatinine 0.5 L Glucose 113 H Uric Acid Phosphorus Lactate Dehydrogenase 323 H CK-MB (CK-2) Myoglobin Total Protein Albumin 05/29/18 05/29/18 05/29/18 14:50 14:49 14:49 WBC 12.0 H RBC 5.55 H Hgb 16.9 H Hct 52.2 H RDW 14.6 H MPV 10.7 H Gran % Lymph % (Auto) Lymph # (Auto) Door # (Auto) 1.3 H D-Dimer VBG Lactic Acid 2.8 H Carbon Dioxide Creatinine Glucose Uric Acid Phosphorus Lactate Dehydrogenase CK-MB (CK-2) 7.1 H Myoglobin Total Protein Albumin Meds: Medications Acetaminophen (Tylenol) 650 mg PO Q6HP PRN PRN Reason: PAIN/FEVER > 101 Albuterol Sulfate (Ventolin) 2.5 mg NEB Q2HP PRN PRN Reason: Shortness Of Breath Last Admin: 05/30/18 01:09 Dose: 2.5 mg Documented by: Albuterol Sulfate (Ventolin) 1 puff INH Q4H PRN PRN Reason: asthma Albuterol/Ipratropium (Duoneb) 3 ml NEB Q4HRT [facility] Last Admin: 05/31/18 15:33 Dose: 3 ml Documented by: Furosemide (Lasix) 20 mg IV DAILY [facility] Heparin Sodium (Porcine) (Heparin) 5,000 unit SQ Q12 [facility] Last Admin: 05/31/18 08:48 Dose: 5,000 unit Documented by: Levofloxacin (Levaquin) 750 mg in 150 mls @ 100 mls/hr IV Q24H [facility] Last Admin: 05/31/18 08:48 Dose: 100 mls/hr Documented by: Naloxone HCl (Narcan) 0.1 mg IV Q2MIN PRN PRN Reason: Opiate Reversal Nicotine (Nicoderm) 21 mg TOPICAL DAILY@1000 [facility] Last Admin: 05/31/18 08:49 Dose: 21 mg Documented by: Ondansetron HCl (Zofran) 4 mg IV Q6HP PRN PRN Reason: Nausea And Vomiting Oseltamivir Phosphate (Tamiflu) 75 mg PO BID [facility] Last Admin: 05/31/18 08:48 Dose: 75 mg Documented by: Oxycodone HCl (Roxicodone) 5 mg PO Q4HP PRN PRN Reason: pain not responding to apap. Budesonide/Formoterol Fumarate [Symbicort] 160-4.5 Mcg Inhaler 2 dose INH TID [facility] Last Admin: 05/31/18 15:59 Dose: 2 dose Documented by: [facility] Last Admin: 05/31/18 08:48 Dose: 40 mg Documented by: Sodium Chloride (Saline Flush) 10 ml IV Q8 [facility] Last Admin: 05/31/18 13:00 Dose: 10 ml Documented by: Medical - PN: A/P - Time Spent With Patient Total time spent is greater than 50% in coordination of care (as documented) at patient's floor/unit and/or counseling patient: - Narrative A/P Narrative: A/P Acute exacerbation of COPD Acute hypoxic resp failure Pneumonia with COPD Active smoker 2.5pack daily Lactic acidosis, resolved Degenerative joint disease. Osteoporosis Pulmonary Hypertension Plan Monitor closely, continuos pulse oximeter if worsens, will move to PCU, start on bipap ABG is reassuring, Ph 7.45/49/82 Duonebs q4hrs, albuterol q2hprn PO prednisone to contine IV levofloxacin Tamiflu nicotine patch Start on IV lasix 20mg today, pt is in positive balance. 3255ml DVT hep sq Diet regular Full code. Medical - PN: Qual - Stroke Symptom Onset Unknown: No - VTE Deep Vein Thrombosis/Pulmonary Embolism Present on Admission: No
[2018-06-01] MEDS: IPRATROPIUM/ALBUTEROL 3 ML AMPUL.NEB NEB SCH ×6 (02:12→22:47)
[2018-06-01 05:50] LABS: Basophils # (Auto) 0 K/mcL (0.0-0.3); Basophils % (Auto) 0.1 % (0.0-2.0); Eosinophils # (Auto) 0 K/mcL (0.0-0.7); Eosinophils % (Auto) 0.1 % (0.0-7.0); Granulocytes % (Auto) 55.3 % (38.0-78.0); Lymphocytes # (Auto) 1.5 K/mcL (1.5-4.8); Lymphocytes % (Auto) 30.5 % (15.5-49.0); Mean Cell Volume 93.2 fL (80.0-100.0); Mean Corpuscular HGB Conc 32.3 g/dL (31.0-36.0); Monocytes # (Auto) 0.7 K/mcL (0.1-0.9); Platelet Count 241 K/mcL (140-440); RBC 4.81 M/mcL (4.00-5.20); Red Cell Distribution Width 14.2 % (11.5-14.5)
[2018-06-01 06:34] LABS: ALT/SGPT 17 U/l (0-40); Albumin 3.2 gm/dL (3.2-5.2); Albumin/Globulin Ratio 1.2 (1.0-2.3); Alkaline Phosphatase 50 U/L (39-117); Bilirubin,Direct < 0.2 mg/dL (0.0-0.3); Blood Urea Nitrogen 11 mg/dl (8-23); Gamma Glutamyl Transpeptidase 21 U/L (5-36); Uric Acid 2.3 mg/dL (2.5-8.0)
[2018-06-01] MEDS: Budesonide/Formoterol Fumarate [Symbicort] 160-4.5 mcg Inhaler INH SCH ×3 (07:00→21:52)
[2018-06-01] MEDS ORDERED: POTASSIUM CHLORIDE 20 MEQ PACKET PO ONE (07:30)
[2018-06-01] MEDS: 0.9 % SODIUM CHLORIDE 10 ML SYRINGE IV SCH ×3 (07:32→21:55)
[2018-06-01] MEDS: predniSONE 20 MG TABLET PO SCH (07:45)
[2018-06-01] MEDS: FUROSEMIDE 20 MG/2 ML VIAL IV SCH (09:03)
[2018-06-01] MEDS: OSELTAMIVIR PHOSPHATE 75 MG CAPSULE PO SCH ×2 (09:04→21:51)
[2018-06-01] MEDS: LEVOFLOXACIN 750 MG/150 ML BAG IV SCH (09:04)
[2018-06-01] MEDS: HEPARIN 5,000 UNIT/ML VIAL SQ SCH ×2 (09:04→21:51)
[2018-06-01] MEDS: NICOTINE 21 MG PATCH TOPICAL SCH (10:26)
[2018-06-01] MEDS ORDERED: IOPAMIDOL 100 ML BOTTLE IV ONE (15:03)
--- NOTE | 2018-06-01 15:40 | Cat Scan Report ---
CLINICAL INFORMATION: Shortness of breath and pulmonary embolus COMPARISON: 12/06/15, 08/18/13 TECHNIQUE: Axial images obtained through the chest. intravenous contrast administration was administered, and scanning was performed during pulmonary arterial phase. Sagittally and coronally reformatted images were obtained. MIP reformatted images. Radiation exposure was limited using dose reduction technology. FINDINGS: No pulmonary emboli are present. The aorta is normal in caliber and there is no aneurysm or dissection. The heart is normal in size and contour. There are scattered calcified plaques in the left main proximal left anterior descending coronary artery. Mild centrilobular emphysema is present in both lungs. There are bands of parenchymal scarring anteriorly and posteriorly in the right upper lobe, inferiorly the medial side segment of the lingula and at the left costophrenic sulcus. There is a well-circumscribed lobulated mass in the anterior basal segment left lower lobe which measures 1.1 x 1.2 cm. There has been no growth since 2014. This is probably a large granuloma or hamartoma. No new lung mass has developed. There is no evidence of pneumonia, lymphadenopathy or pleural effusion. IMPRESSION: No evidence of pulmonary emboli Mild COPD with pulmonary fibrosis Stable benign lung mass in the left lower lobe Interpreted and Authenticated by: Dheeraj Russell 06/01/18
--- NOTE | 2018-06-01 18:04 | Internal Med Progress Note ---
Medical - PN: Subj Patient information: Note initiated : 06/01/18 at 6:02 pm Service Date, if different from initiated Date: [] Patient: Emelia Candelaria a 63 y/o F admitted on 05/29/18 for Shortness of breath. Chief Complaint: [] Interval history: Ms. Candelaria is a 63 year old F with history of COPD, active smoker presents to the emergency room for shortness of breath going on for the last 6 days. The patient notes her symptoms started on Wednesday and has progressively gotten worse since then. Last week and she was at the [facility] [place] from [facility] with a lot of people. She notes her symptoms started a day after that. She admits to having some cough with yellowish sputum subjective sensations of fever runny nose watery eyes. Her symptoms have progressively gotten worse to a point that she is unable to ambulate even within the room without significant shortness of breath. The patient therefore came to the emergency room for further evaluation. The patient admits to having cough associated with chest pain. She denies any nausea vomiting had some diarrhea denies any new joint pains no depression or anxiety denies any new skin rashes any changes in vision hearing or difficulty in swallowing she denies any bleeding or black stools. In the emergency room the patient was afebrile, heart rate 85 blood pressure 133 x 77 saturating in the 60s on room air. The patient had a WBC count of 12.2, hemoglobin 16.6 platelets 232 Sodium 140 potassium 4.2 bicarbonate 29 creatinine 0.6 glucose 97 lactic acid 2.8 troponin negative CK 126 pro calcitonin less than 0.05. Chest x-ray shows COPD and a new developing infiltrate EKG shows sinus tachycardia Patient is being admitted to the hospital for further management, in the emergency room patient received duo nebs steroids and Zithromax 05/30 Patient seen and examined, she does not feel significant improvement however to me appears somewhat more comfortable. She still has shortness of breath and cough. Labs are stable. Influenza A test is positive started the patient on Tamiflu 05/31 Pt seen examined no acute overnight issues still is short of breath x ray shows no new changes, had chest pain this AM, normal ekg, trop neg, d dimer mildly elevated, low supicion for PE. 06/01 Patient seen and examined, no acute overnight events. This morning clinically she felt better, however her oxygen needs went up. She is also more tachycardic today CT angios was done which is negative for pulmonary embolism. No new complaints or concerns Pertinent ROS: Denies headache, dizziness Denies chest pain, palpitations Improving cough and shortness of breath Denies abdominal pain, nausea or vomiting. - Constitutional Vitals: Vital Signs Temp Pulse Resp BP Pulse Ox 98 F 104 H 28 H 143/90 82 L 06/01/18 15:18 06/01/18 15:18 06/01/18 15:18 06/01/18 15:18 06/01/18 15:18 Period Temp Pulse Resp BP Sys/Tomas Pulse Ox Last 24 Hr 96.7 F-98.8 F 78-110 16-28 116-154/74-92 82-98 Intake and Output 06/01/18 06/01/18 06/01/18 05:59 13:59 21:59 Intake Total 300 1380 600 Output Total 600 250 450 Balance -300 1130 150 Intake & Output: Intake & Output 06/01/18 06/01/18 06/01/18 05:59 13:59 21:59 Intake Total 300 1380 600 Output Total 600 250 450 Balance -300 1130 150 Intake: Oral 300 1380 600 Output: Void Amount 600 250 450 Other: Meal Lunch Dinner Percent of Meal Consumed 90 75% Feeding Ability Independent Independent Urine Appearance Clear Urine Color Pale Urine Odor Normal # Voids 2 Exam: Constitutional; Afebrile, cooperative, alert, not in distress. Respiratory system: Air Entry equal on both sides improved air entry since yesterday, mild expiratory wheezing, bibasilar crackles noted in the morning but better than yesterday. CVS- Rate rhythm regular, S1,S2 heard, no gallop, no rub. 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 Medical - PN: Obj Da - Labs CBC & Chem 7: 06/01/18 04:10 06/01/18 04:10 Labs: Abnormal Lab Results 06/01/18 06/01/18 05/31/18 04:10 04:10 11:00 Hgb Hct RDW Gran % Lymph % (Auto) [place] % (Auto) 14.0 H Lymph # (Auto) D-Dimer Chloride 95 L Carbon Dioxide 33 H Creatinine 0.4 L Glucose Uric Acid 2.3 L Phosphorus Lactate Dehydrogenase CK-MB (CK-2) 6.6 H Myoglobin 60 H Total Protein 5.8 L Albumin 05/31/18 05/31/18 05/31/18 11:00 04:50 04:50 Hgb Hct RDW 14.8 H Gran % Lymph % (Auto) [place] % (Auto) Lymph # (Auto) 1.4 L D-Dimer 0.69 H Chloride Carbon Dioxide 33 H Creatinine 0.4 L Glucose Uric Acid 2.3 L Phosphorus 2.4 L Lactate Dehydrogenase CK-MB (CK-2) Myoglobin Total Protein 5.7 L Albumin 3.1 L 05/30/18 05/30/18 04:14 04:14 Hgb 15.8 H Hct 48.4 H RDW Gran % 78.6 H Lymph % (Auto) 14.0 L [place] % (Auto) Lymph # (Auto) 0.9 L D-Dimer Chloride Carbon Dioxide Creatinine 0.5 L Glucose 113 H Uric Acid Phosphorus Lactate Dehydrogenase 323 H CK-MB (CK-2) Myoglobin Total Protein Albumin Meds: Medications Acetaminophen (Tylenol) 650 mg PO Q6HP PRN PRN Reason: PAIN/FEVER > 101 Albuterol Sulfate (Ventolin) 2.5 mg NEB Q2HP PRN PRN Reason: Shortness Of Breath Last Admin: 05/30/18 01:09 Dose: 2.5 mg Documented by: Albuterol Sulfate (Ventolin) 1 puff INH Q4H PRN PRN Reason: asthma Albuterol/Ipratropium (Duoneb) 3 ml NEB Q4HRT [facility] Last Admin: 06/01/18 14:11 Dose: 3 ml Documented by: Furosemide (Lasix) 20 mg IV DAILY [facility] Last Admin: 06/01/18 09:03 Dose: 20 mg Documented by: Heparin Sodium (Porcine) (Heparin) 5,000 unit SQ Q12 [facility] Last Admin: 06/01/18 09:04 Dose: 5,000 unit Documented by: Levofloxacin (Levaquin) 750 mg in 150 mls @ 100 mls/hr IV Q24H [facility] Last Admin: 06/01/18 09:04 Dose: 100 mls/hr Documented by: Naloxone HCl (Narcan) 0.1 mg IV Q2MIN PRN PRN Reason: Opiate Reversal Nicotine (Nicoderm) 21 mg TOPICAL DAILY@1000 [facility] Last Admin: 06/01/18 10:26 Dose: 21 mg Documented by: Ondansetron HCl (Zofran) 4 mg IV Q6HP PRN PRN Reason: Nausea And Vomiting Oseltamivir Phosphate (Tamiflu) 75 mg PO BID [facility] Last Admin: 06/01/18 09:04 Dose: 75 mg Documented by: Oxycodone HCl (Roxicodone) 5 mg PO Q4HP PRN PRN Reason: pain not responding to apap. Budesonide/Formoterol Fumarate [Symbicort] 160-4.5 Mcg Inhaler 2 dose INH TID [facility] Last Admin: 06/01/18 15:30 Dose: 2 dose Documented by: [facility] Last Admin: 06/01/18 07:45 Dose: 40 mg Documented by: Sodium Chloride (Saline Flush) 10 ml IV Q8 [facility] Last Admin: 06/01/18 17:36 Dose: 10 ml Documented by: Medical - PN: A/P - Time Spent With Patient Total time spent is greater than 50% in coordination of care (as documented) at patient's floor/unit and/or counseling patient: - Narrative A/P Narrative: A/P Acute exacerbation of COPD Acute hypoxic resp failure Pneumonia with COPD Active smoker 2.5pack daily Lactic acidosis, resolved Degenerative joint disease. Osteoporosis Pulmonary Hypertension Plan Monitor closely, Duonebs q4hrs, albuterol q2hprn PO prednisone to contine, CTA is negative IV levofloxacin Tamiflu to continue slower than anticipated clinical recovery nicotine patch Start on IV lasix 20mg which seems to be helping too. DVT hep sq Diet regular Full code. Medical - PN: Qual - Stroke Symptom Onset Unknown: No - VTE Deep Vein Thrombosis/Pulmonary Embolism Present on Admission: No
[2018-06-02] MEDS: IPRATROPIUM/ALBUTEROL 3 ML AMPUL.NEB NEB SCH ×4 (03:22→14:56)
[2018-06-02 05:22] LABS: Basophils # (Auto) 0 K/mcL (0.0-0.3); Basophils % (Auto) 0.3 % (0.0-2.0); Eosinophils # (Auto) 0 K/mcL (0.0-0.7); Eosinophils % (Auto) 0.1 % (0.0-7.0); Granulocytes % (Auto) 55.3 % (38.0-78.0); Lymphocytes % (Auto) 30.2 % (15.5-49.0); Mean Cell Volume 92.4 fL (80.0-100.0); Mean Corpuscular HGB Conc 33.2 g/dL (31.0-36.0); Monocytes # (Auto) 0.9 K/mcL (0.1-0.9); Monocytes % (Auto) 14.1 % (1.0-12.0); Platelet Count 262 K/mcL (140-440); RBC 4.88 M/mcL (4.00-5.20); Red Cell Distribution Width 14.4 % (11.5-14.5)
[2018-06-02 06:02] LABS: ALT/SGPT 18 U/l (0-40); Albumin 3.3 gm/dL (3.2-5.2); Albumin/Globulin Ratio 1.3 (1.0-2.3); Alkaline Phosphatase 50 U/L (39-117); Bilirubin,Direct < 0.2 mg/dL (0.0-0.3); Blood Urea Nitrogen 15 mg/dl (8-23); Gamma Glutamyl Transpeptidase 20 U/L (5-36); Uric Acid 2.2 mg/dL (2.5-8.0)
[2018-06-02] MEDS: 0.9 % SODIUM CHLORIDE 10 ML SYRINGE IV SCH ×3 (06:42→20:46)
[2018-06-02] MEDS: predniSONE 20 MG TABLET PO SCH (08:05)
[2018-06-02] MEDS: NICOTINE 21 MG PATCH TOPICAL SCH (09:39)
[2018-06-02] MEDS: FUROSEMIDE 20 MG/2 ML VIAL IV SCH (09:39)
[2018-06-02] MEDS: OSELTAMIVIR PHOSPHATE 75 MG CAPSULE PO SCH ×2 (09:39→20:46)
[2018-06-02] MEDS: LEVOFLOXACIN 750 MG/150 ML BAG IV SCH (09:39)
[2018-06-02] MEDS: HEPARIN 5,000 UNIT/ML VIAL SQ SCH ×2 (09:39→20:45)
[2018-06-02] MEDS: Budesonide/Formoterol Fumarate [Symbicort] 160-4.5 mcg Inhaler INH SCH ×3 (09:40→20:46)
--- NOTE | 2018-06-02 11:59 | Internal Med Progress Note ---
Medical - PN: Subj Patient information: Note initiated : 06/02/18 at 11:57 am Service Date, if different from initiated Date: [] Patient: Emelia Candelaria a 63 y/o F admitted on 05/29/18 for Shortness of breath. Chief Complaint: [] Interval history: Ms. Candelaria is a 63 year old F with history of COPD, active smoker presents to the emergency room for shortness of breath going on for the last 6 days. The patient notes her symptoms started on Wednesday and has progressively gotten worse since then. Last week and she was at the [place] [facility] from [facility] with a lot of people. She notes her symptoms started a day after that. She admits to having some cough with yellowish sputum subjective sensations of fever runny nose watery eyes. Her symptoms have progressively gotten worse to a point that she is unable to ambulate even within the room without significant shortness of breath. The patient therefore came to the emergency room for further evaluation. The patient admits to having cough associated with chest pain. She denies any nausea vomiting had some diarrhea denies any new joint pains no depression or anxiety denies any new skin rashes any changes in vision hearing or difficulty in swallowing she denies any bleeding or black stools. In the emergency room the patient was afebrile, heart rate 85 blood pressure 133 x 77 saturating in the 60s on room air. The patient had a WBC count of 12.2, h emoglobin 16.6 platelets 232 Sodium 140 potassium 4.2 bicarbonate 29 creatinine 0.6 glucose 97 lactic acid 2.8 troponin negative CK 126 pro calcitonin less than 0.05. Chest x-ray shows COPD and a new developing infiltrate EKG shows sinus tachycardia Patient is being admitted to the hospital for further management, in the emergency room patient received duo nebs steroids and Zithromax 05/30 Patient seen and examined, she does not feel significant improvement however to me appears somewhat more comfortable. She still has shortness of breath and cough. Labs are stable. Influenza A test is positive started the patient on Tamiflu 05/31 Pt seen examined no acute overnight issues still is short of breath x ray shows no new changes, had chest pain this AM, normal ekg, trop neg, d dimer mildly elevated, low supicion for PE. 06/01 Patient seen and examined, no acute overnight events. This morning clinically she felt better, however her oxygen needs went up. She is also more tachycardic today CT angios was done which is negative for pulmonary embolism. No new complaints or concerns 06/02 Pt seen examined no acute issues, tolerating po diet well, however is still very short of breath,feels better, but not back to [place] She still is short of breath even when going to the toilet, (bed side commode) on 2 L oxygen now, continue to wean Pertinent ROS: Denies headache, dizziness Denies chest pain, palpitations improving shortness of breath, no cough. Denies abdominal pain, nausea or vomiting. - Constitutional Vitals: Vital Signs Temp Pulse Resp BP Pulse Ox 97.9 F 100 H 24 H 124/84 90 06/02/18 08:47 06/02/18 11:17 06/02/18 11:17 06/02/18 08:47 06/02/18 11:17 Period Temp Pulse Resp BP Sys/Tomas Pulse Ox Last 24 Hr 97.9 F-98.6 F 82-110 20-28 118-143/78-90 82-94 Intake and Output 06/01/18 06/02/18 06/02/18 21:59 05:59 13:59 Intake Total 1120 640 340 Output Total 650 700 150 Balance 470 -60 190 Weight 102 lb 8 oz Intake & Output: Intake & Output 06/01/18 06/02/18 06/02/18 21:59 05:59 13:59 Intake Total 1120 640 340 Output Total 650 700 150 Balance 470 -60 190 Weight 102 lb 8 oz Intake: Oral 1120 640 340 Output: Void Amount 650 700 150 Other: Meal Dinner Breakfast Percent of Meal Consumed 75% 75% Feeding Ability Independent Independent Urine Appearance Clear Clear Clear Urine Color Pale Pale Straw Urine Odor Normal Normal Normal # Voids 2 1 Exam: Constitutional; Afebrile, cooperative, alert, not in distress. Eyes- No icterus, , No periorbital swelling Ears- Ext ear normal, hearing normal to conversation. Neck- Midline trachea, supple Respiratory system: Air Entry equal on both sides, decreased air entry bilaterally, prolonged exp phase, no wheezing now. CVS- Rate rhythm regular, S1,S2 heard, no gallop, no rub. Abdomen- Soft nontender abdomen, no organomegaly, no tenderness, no guarding or rigidity, CAT[employer]ING DIRECT[employer]- AOOx3, moving all extremities, no gross focal deficit noted. Medical - PN: Obj Da - Labs CBC & Chem 7: 06/02/18 03:45 06/02/18 03:45 Labs: Abnormal Lab Results 06/02/18 06/02/18 06/01/18 03:45 03:45 04:10 RDW [place] % (Auto) 14.1 H Lymph # (Auto) D-Dimer Chloride 95 L Carbon Dioxide 33 H 33 H Creatinine 0.4 L 0.4 L Uric Acid 2.2 L 2.3 L Phosphorus CK-MB (CK-2) Myoglobin Total Protein 5.8 L Albumin 06/01/18 05/31/18 05/31/18 04:10 11:00 11:00 RDW [place] % (Auto) 14.0 H Lymph # (Auto) D-Dimer 0.69 H Chloride Carbon Dioxide Creatinine Uric Acid Phosphorus CK-MB (CK-2) 6.6 H Myoglobin 60 H Total Protein Albumin 05/31/18 05/31/18 04:50 04:50 RDW 14.8 H [place] % (Auto) Lymph # (Auto) 1.4 L D-Dimer Chloride Carbon Dioxide 33 H Creatinine 0.4 L Uric Acid 2.3 L Phosphorus 2.4 L CK-MB (CK-2) Myoglobin Total Protein 5.7 L Albumin 3.1 L Meds: Medications Acetaminophen (Tylenol) 650 mg PO Q6HP PRN PRN Reason: PAIN/FEVER > 101 Albuterol Sulfate (Ventolin) 2.5 mg NEB Q2HP PRN PRN Reason: Shortness Of Breath Last Admin: 05/30/18 01:09 Dose: 2.5 mg Documented by: Albuterol Sulfate (Ventolin) 1 puff INH Q4H PRN PRN Reason: asthma Albuterol/Ipratropium (Duoneb) 3 ml NEB Q4HRT [facility] Last Admin: 06/02/18 11:16 Dose: 3 ml Documented by: Furosemide (Lasix) 20 mg IV DAILY [facility] Last Admin: 06/02/18 09:39 Dose: 20 mg Documented by: Heparin Sodium (Porcine) (Heparin) 5,000 unit SQ Q12 [facility] Last Admin: 06/02/18 09:39 Dose: 5,000 unit Documented by: Levofloxacin (Levaquin) 750 mg in 150 mls @ 100 mls/hr IV Q24H [facility] Last Admin: 06/02/18 09:39 Dose: 100 mls/hr Documented by: Naloxone HCl (Narcan) 0.1 mg IV Q2MIN PRN PRN Reason: Opiate Reversal Nicotine (Nicoderm) 21 mg TOPICAL DAILY@1000 [facility] Last Admin: 06/02/18 09:39 Dose: 21 mg Documented by: Ondansetron HCl (Zofran) 4 mg IV Q6HP PRN PRN Reason: Nausea And Vomiting Oseltamivir Phosphate (Tamiflu) 75 mg PO BID [facility] Last Admin: 06/02/18 09:39 Dose: 75 mg Documented by: Oxycodone HCl (Roxicodone) 5 mg PO Q4HP PRN PRN Reason: pain not responding to apap. Budesonide/Formoterol Fumarate [Symbicort] 160-4.5 Mcg Inhaler 2 dose INH TID [facility] Last Admin: 06/02/18 09:40 Dose: 2 dose Documented by: Pneumococcal Polyvalent Vaccine (Pneumovax 23) 0.5 ml IM .ONCE ONE Stop: 06/03/18 10:01 Prednisone (Prednisone) 40 mg PO QAC [facility] Last Admin: 06/02/18 08:05 Dose: 40 mg Documented by: Sodium Chloride (Saline Flush) 10 ml IV Q8 [facility] Last Admin: 06/02/18 06:42 Dose: 10 ml Documented by: Medical - PN: A/P - Time Spent With Patient Total time spent is greater than 50% in coordination of care (as documented) at patient's floor/unit and/or counseling patient: - Narrative A/P Narrative: A/P Acute exacerbation of COPD Acute hypoxic resp failure Pneumonia with COPD Active smoker 2.5pack daily Lactic acidosis, resolved Degenerative joint disease. Osteoporosis Pulmonary Hypertension Plan Monitor closely, Duonebs q4hrs, albuterol q2hprn PO prednisone to contine, CTA is negative swithc from IV to po levofloxacin. Tamiflu to continue slower than anticipated clinical recovery, will likely need to stay another couple of days nicotine patch Started on IV lasix 20mg which seems to be helping too. DVT hep sq Diet regular Full code. Medical - PN: Qual - Stroke Symptom Onset Unknown: No - VTE Deep Vein Thrombosis/Pulmonary Embolism Present on Admission: No
--- NOTE | 2018-06-02 13:21 | Internal Med Progress Note ---
Medical - PN: Subj Patient information: Note initiated : 06/02/18 at 1:19 pm Service Date, if different from initiated Date: [] Patient: Emelia Candelaria a 63 y/o F admitted on 05/29/18 for Shortness of breath. Chief Complaint: [] Interval history: Ms. Candelaria is a 63 year old F with history of COPD, active smoker presents to the emergency room for shortness of breath going on for the last 6 days. The patient notes her symptoms started on Wednesday and has progressively gotten worse since then. Last week and she was at the [facility] [place] from [facility] with a lot of people. She notes her symptoms started a day after that. She admits to having some cough with yellowish sputum subjective sensations of fever runny nose watery eyes. Her symptoms have progressively gotten worse to a point that she is unable to ambulate even within the room without significant shortness of breath. The patient therefore came to the emergency room for further evaluation. The patient admits to having cough associated with chest pain. She denies any nausea vomiting had some diarrhea denies any new joint pains no depression or anxiety denies any new skin rashes any changes in vision hearing or difficulty in swallowing she denies any bleeding or black stools. In the emergency room the patient was afebrile, heart rate 85 blood pressure 133 x 77 saturating in the 60s on room air. The patient had a WBC count of 12.2, h emoglobin 16.6 platelets 232 Sodium 140 potassium 4.2 bicarbonate 29 creatinine 0.6 glucose 97 lactic acid 2.8 troponin negative CK 126 pro calcitonin less than 0.05. Chest x-ray shows COPD and a new developing infiltrate EKG shows sinus tachycardia Patient is being admitted to the hospital for further management, in the emergency room patient received duo nebs steroids and Zithromax 05/30 Patient seen and examined, she does not feel significant improvement however to me appears somewhat more comfortable. She still has shortness of breath and cough. Labs are stable. Influenza A test is positive started the patient on Tamiflu 05/31 Pt seen examined no acute overnight issues still is short of breath x ray shows no new changes, had chest pain this AM, normal ekg, trop neg, d dimer mildly elevated, low supicion for PE. 06/01 Patient seen and examined, no acute overnight events. This morning clinically she felt better, however her oxygen needs went up. She is also more tachycardic today CT angios was done which is negative for pulmonary embolism. No new complaints or concerns 06/02 Pt seen examined no acute issues, tolerating po diet well, however is still very short of breath,feels better, but not back to [place] She still is short of breath even when going to the toilet, (bed side commode) on 2 L oxygen now, continue to wean 06/03 - Constitutional Vitals: Vital Signs Temp Pulse Resp BP Pulse Ox 97.5 F 112 H 24 H 120/80 90 06/02/18 12:07 06/02/18 12:07 06/02/18 12:06/02/18 12:06/02/18 11:17 Period Temp Pulse Resp BP Sys/Tomas Pulse Ox Last 24 Hr 97.5 F-98.6 F 82-112 20-28 118-143/78-90 82-94 Intake and Output 06/01/18 06/02/18 06/02/18 21:59 05:59 13:59 Intake Total 1120 640 490 Output Total 650 700 950 Balance 470 -60 -460 Weight 46.493 kg Intake & Output: Intake & Output 06/01/18 06/02/18 06/02/18 21:59 05:59 13:59 Intake Total 1120 640 490 Output Total 650 700 950 Balance 470 -60 -460 Weight 46.493 kg Intake: IV 150 Oral 1120 640 340 Output: Void Amount 650 700 950 Other: Meal Dinner Breakfast Percent of Meal Consumed 75% 75% Feeding Ability Independent Independent Urine Appearance Clear Clear Clear Urine Color Pale Pale Straw Urine Odor Normal Normal Normal # Voids 2 3 Exam: General: Alert, Awake, No acute Distress Eyes/N/T: EOMI, Head/Neck: neck supple, CV: RRR, No murmurs, Pulm: Diminished bilaterally, prolonged expiratory phase, no wheezing Abd: soft, nontender, +BS x4 Ext: no clubbing/cyanosis/edema Neuro: Alert, no focal deficits, moves all extremities Skin: warm/dry Medical - PN: Obj Da - Labs CBC & Chem 7: 06/02/18 03:45 06/02/18 03:45 Labs: Abnormal Lab Results 06/02/18 06/02/18 06/01/18 03:45 03:45 04:10 RDW [place] % (Auto) 14.1 H Lymph # (Auto) D-Dimer Chloride 95 L Carbon Dioxide 33 H 33 H Creatinine 0.4 L 0.4 L Uric Acid 2.2 L 2.3 L Phosphorus CK-MB (CK-2) Myoglobin Total Protein 5.8 L Albumin 06/01/18 05/31/18 05/31/18 04:10 11:00 11:00 RDW [place] % (Auto) 14.0 H Lymph # (Auto) D-Dimer 0.69 H Chloride Carbon Dioxide Creatinine Uric Acid Phosphorus CK-MB (CK-2) 6.6 H Myoglobin 60 H Total Protein Albumin 05/31/18 05/31/18 04:50 04:50 RDW 14.8 H [place] % (Auto) Lymph # (Auto) 1.4 L D-Dimer Chloride Carbon Dioxide 33 H Creatinine 0.4 L Uric Acid 2.3 L Phosphorus 2.4 L CK-MB (CK-2) Myoglobin Total Protein 5.7 L Albumin 3.1 L Meds: Medications Acetaminophen (Tylenol) 650 mg PO Q6HP PRN PRN Reason: PAIN/FEVER > 101 Albuterol Sulfate (Ventolin) 2.5 mg NEB Q2HP PRN PRN Reason: Shortness Of Breath Last Admin: 05/30/18 01:09 Dose: 2.5 mg Documented by: Albuterol Sulfate (Ventolin) 1 puff INH Q4H PRN PRN Reason: asthma Albuterol/Ipratropium (Duoneb) 3 ml NEB Q4HRT [facility] Last Admin: 06/02/18 11:16 Dose: 3 ml Documented by: Furosemide (Lasix) 20 mg IV DAILY [facility] Last Admin: 06/02/18 09:39 Dose: 20 mg Documented by: Heparin Sodium (Porcine) (Heparin) 5,000 unit SQ Q12 [facility] Last Admin: 06/02/18 09:39 Dose: 5,000 unit Documented by: Levofloxacin (Levaquin) 750 mg PO DAILY [facility] Naloxone HCl (Narcan) 0.1 mg IV Q2MIN PRN PRN Reason: Opiate Reversal Nicotine (Nicoderm) 21 mg TOPICAL DAILY@1000 [facility] Last Admin: 06/02/18 09:39 Dose: 21 mg Documented by: Ondansetron HCl (Zofran) 4 mg IV Q6HP PRN PRN Reason: Nausea And Vomiting Oseltamivir Phosphate (Tamiflu) 75 mg PO BID [facility] Last Admin: 06/02/18 09:39 Dose: 75 mg Documented by: Oxycodone HCl (Roxicodone) 5 mg PO Q4HP PRN PRN Reason: pain not responding to apap. Budesonide/Formoterol Fumarate [Symbicort] 160-4.5 Mcg Inhaler 2 dose INH TID [facility] Last Admin: 06/02/18 09:40 Dose: 2 dose Documented by: Pneumococcal Polyvalent Vaccine (Pneumovax 23) 0.5 ml IM .ONCE ONE Stop: 06/03/18 10:01 Prednisone (Prednisone) 40 mg PO [facility] Last Admin: 06/02/18 08:05 Dose: 40 mg Documented by: Sodium Chloride (Saline Flush) 10 ml IV Q8 [facility] Last Admin: 06/02/18 06:42 Dose: 10 ml Documented by: Medical - PN: A/P - Time Spent With Patient Total time spent is greater than 50% in coordination of care (as documented) at patient's floor/unit and/or counseling patient: - Narrative A/P Narrative: A: *INFLUENZA A+: *AECOPD ( ): *Acute hypoxic resp failure -CTA is negative -on 2L NC *PNA: *Tobacco abuse: 2.5pack daily *Lactic acidosis, resolved *Degenerative joint disease. *Osteoporosis *Pulmonary Hypertension P: -Monitor closely, -Duonebs q4hrs, albuterol q2hprn, IS -PO prednisone to contine(wean), -switch from IV to po levofloxacin. -Tamiflu to continue -slower than anticipated clinical recovery, will likely need to stay another couple of days -nicotine patch -Started on IV lasix 20mg which seems to be helping too. -Smoking cessation counseling -ppx: hep sq Diet regular Full code. Medical - PN: Qual - Stroke Symptom Onset Unknown: No - VTE Deep Vein Thrombosis/Pulmonary Embolism Present on Admission: No
[2018-06-02] MEDS ORDERED: LORazepam 2 MG/ML VIAL IV PRN (18:13)
[2018-06-02] MEDS ORDERED: LEVALBUTEROL 0.63 MG/3 ML AMPUL.NEB ONE (18:20)
[2018-06-02] MEDS: IPRATROPIUM 2.5 ML AMPUL.NEB NEB SCH (19:13)
[2018-06-02] MEDS: LEVALBUTEROL 1.25 MG/3 ML AMPUL.NEB NEB SCH (19:15)
[2018-06-02] MEDS ORDERED: hydrOXYzine 25 MG TABLET PO ONE (21:27)
[2018-06-03] MEDS: IPRATROPIUM 2.5 ML AMPUL.NEB NEB SCH ×5 (00:52→23:57)
[2018-06-03] MEDS: LEVALBUTEROL 1.25 MG/3 ML AMPUL.NEB NEB SCH ×5 (00:53→23:57)
[2018-06-03] MEDS: 0.9 % SODIUM CHLORIDE 10 ML SYRINGE IV SCH ×3 (04:12→20:20)
--- NOTE | 2018-06-03 06:52 | Internal Med Progress Note ---
Medical - PN: Subj Patient information: Note initiated : 06/03/18 at 6:48 am Service Date, if different from initiated Date: [] Patient: Emelia Candelaria a 63 y/o F admitted on 05/29/18 for Shortness of breath. Chief Complaint: [] Interval history: Ms. Candelaria is a 63 year old F with history of COPD, active smoker presents to the emergency room for shortness of breath going on for the last 6 days. The patient notes her symptoms started on Wednesday and has progressively gotten worse since then. Last week and she was at the [facility] from [facility] with a lot of people. She notes her symptoms started a day after that. She admits to having some cough with yellowish sputum subjective sensations of fever runny nose watery eyes. Her symptoms have progressively gotten worse to a point that she is unable to ambulate even within the room without significant shortness of breath. The patient therefore came to the emergency room for further evaluation. The patient admits to having cough associated with chest pain. She denies any nausea vomiting had some diarrhea denies any new joint pains no depression or anxiety denies any new skin rashes any changes in vision hearing or difficulty in swallowing she denies any bleeding or black stools. In the emergency room the patient was afebrile, heart rate 85 blood pressure 133 x 77 saturating in the 60s on room air. The patient had a WBC count of 12.2, h emoglobin 16.6 platelets 232 Sodium 140 potassium 4.2 bicarbonate 29 creatinine 0.6 glucose 97 lactic acid 2.8 troponin negative CK 126 pro calcitonin less than 0.05. Chest x-ray shows COPD and a new developing infiltrate EKG shows sinus tachycardia Patient is being admitted to the hospital for further management, in the emergency room patient received duo nebs steroids and Zithromax 05/30 Patient seen and examined, she does not feel significant improvement however to me appears somewhat more comfortable. She still has shortness of breath and cough. Labs are stable. Influenza A test is positive started the patient on Tamiflu 05/31 Pt seen examined no acute overnight issues still is short of breath x ray shows no new changes, had chest pain this AM, normal ekg, trop neg, d dimer mildly elevated, low supicion for PE. 06/01 Patient seen and examined, no acute overnight events. This morning clinically she felt better, however her oxygen needs went up. She is also more tachycardic today CT angios was done which is negative for pulmonary embolism. No new complaints or concerns 06/02 Pt seen examined no acute issues, tolerating po diet well, however is still very short of breath,feels better, but not back to [place] She still is short of breath even when going to the toilet, (bed side commode) on 2 L oxygen now, continue to wean 06/03 Feeling better today, dyspnea improved, mild nonproductive cough. She is quite anxious last night tachycardic she was given a hydroxyzine with good improvement she was able to rest heart rates in the 90s appears comfortable. No new complaints Review of Systems: denies headache/fever/chills/nausea/vomiting/chest or abdominal pain/diarrhea. Otherwise see above. - Constitutional Vitals: Vital Signs Temp Pulse Resp BP Pulse Ox 97.2 F 91 H 16 120/76 91 06/03/18 04:00 06/03/18 04:00 06/03/18 04:00 06/03/18 04:00 06/03/18 04:00 Period Temp Pulse Resp BP Sys/Tomas Pulse Ox Last 24 Hr 97.2 F-98.4 F 91-121 16-24 120-147/60-93 90-93 Intake and Output 06/02/18 06/03/18 06/03/18 21:59 05:59 13:59 Intake Total 700 Output Total 1100 650 Balance -1100 50 Weight 46.266 kg Intake & Output: Intake & Output 06/02/18 06/03/18 06/03/18 21:59 05:59 13:59 Intake Total 700 Output Total 1100 650 Balance -1100 50 Weight 46.266 kg Intake: Oral 700 Output: Void Amount 1100 650 Exam: General: Alert, Awake, No acute Distress Eyes/N/T: EOMI, Head/Neck: neck supple, CV: RRR, No murmurs, Pulm: Diminished bilaterally, prolonged expiratory phase, no wheezing, Abd: soft, nontender, +BS x4 Ext: no clubbing/cyanosis/edema Neuro: Alert, no focal deficits, moves all extremities Skin: warm/dry Medical - PN: Obj Da - Labs CBC & Chem 7: 06/02/18 03:45 06/03/18 04:10 Labs: Abnormal Lab Results 06/02/18 06/02/18 06/01/18 03:45 03:45 04:10 [place] % (Auto) 14.1 H D-Dimer Chloride 95 L Carbon Dioxide 33 H 33 H Creatinine 0.4 L 0.4 L Uric Acid 2.2 L 2.3 L Phosphorus CK-MB (CK-2) Myoglobin Total Protein 5.8 L Albumin 06/01/18 05/31/18 05/31/18 04:10 11:00 11:00 [place] % (Auto) 14.0 H D-Dimer 0.69 H Chloride Carbon Dioxide Creatinine Uric Acid Phosphorus CK-MB (CK-2) 6.6 H Myoglobin 60 H Total Protein Albumin 05/31/18 04:50 [place] % (Auto) D-Dimer Chloride Carbon Dioxide 33 H Creatinine 0.4 L Uric Acid 2.3 L Phosphorus 2.4 L CK-MB (CK-2) Myoglobin Total Protein 5.7 L Albumin 3.1 L Meds: Medications Acetaminophen (Tylenol) 650 mg PO Q6HP PRN PRN Reason: PAIN/FEVER > 101 Albuterol Sulfate (Ventolin) 2.5 mg NEB Q2HP PRN PRN Reason: Shortness Of Breath Last Admin: 05/30/18 01:09 Dose: 2.5 mg Documented by: Albuterol Sulfate (Ventolin) 1 puff INH Q4H PRN PRN Reason: asthma Furosemide (Lasix) 20 mg IV DAILY [facility] Last Admin: 06/02/18 09:39 Dose: 20 mg Documented by: Heparin Sodium (Porcine) (Heparin) 5,000 unit SQ Q12 [facility] Last Admin: 06/02/18 20:45 Dose: 5,000 unit Documented by: Ipratropium [place] (Atrovent) 2.5 ml NEB Q6HRT [facility] Last Admin: 06/03/18 00:52 Dose: 2.5 ml Documented by: Levalbuterol HCl (Xopenex) 1.25 mg NEB Q6HRT [facility] Last Admin: 06/03/18 00:53 Dose: 1.25 mg Documented by: Levofloxacin (Levaquin) 750 mg PO DAILY [facility] Lorazepam (Ativan) 0.5 mg IV TIDP PRN PRN Reason: ANXIETY/SEDATION Naloxone HCl (Narcan) 0.1 mg IV Q2MIN PRN PRN Reason: Opiate Reversal Nicotine (Nicoderm) 21 mg TOPICAL DAILY@1000 [facility] Last Admin: 06/02/18 09:39 Dose: 21 mg Documented by: Ondansetron HCl (Zofran) 4 mg IV Q6HP PRN PRN Reason: Nausea And Vomiting Oseltamivir Phosphate (Tamiflu) 75 mg PO BID [facility] Last Admin: 06/02/18 20:46 Dose: 75 mg Documented by: Oxycodone HCl (Roxicodone) 5 mg PO Q4HP PRN PRN Reason: pain not responding to apap. Budesonide/Formoterol Fumarate [Symbicort] 160-4.5 Mcg Inhaler 2 dose INH TID [facility] Last Admin: 06/02/18 20:46 Dose: 2 dose Documented by: Pneumococcal Polyvalent Vaccine (Pneumovax 23) 0.5 ml IM .ONCE ONE Stop: 06/03/18 10:01 Prednisone (Prednisone) 40 mg PO [facility] Last Admin: 06/02/18 08:05 Dose: 40 mg Documented by: Sodium Chloride (Saline Flush) 10 ml IV Q8 [facility] Last Admin: 06/03/18 04:12 Dose: 10 ml Documented by: Medical - PN: A/P - Time Spent With Patient Total time spent is greater than 50% in coordination of care (as documented) at patient's floor/unit and/or counseling patient: - Narrative A/P Narrative: A: *INFLUENZA A+: *AECOPD (not on home O2): *Acute hypoxic resp failure: complicated by underlying pulm fibrosis -CTA is negative for PE, Pulmonary fibrosis -on 2L NC *PNA: *Tobacco abuse: 2.5pack daily *Lactic acidosis, resolved *Degenerative joint disease. *Osteoporosis *Pulmonary Hypertension: P: -wean down/off O2 if able, may need home oxygen -xopenex, IS -PO prednisone to contine(wean), -cont levofloxacin -Tamiflu to continue -slower than anticipated clinical recovery, but feeling improved today -nicotine patch -Smoking cessation counseling -ppx: hep sq Diet regular Full code. Medical - PN: Qual - Stroke Symptom Onset Unknown: No - VTE Deep Vein Thrombosis/Pulmonary Embolism Present on Admission: No
[2018-06-03 06:53] LABS: ALT/SGPT 26 U/l (0-40); Albumin 3.4 gm/dL (3.2-5.2); Albumin/Globulin Ratio 1.2 (1.0-2.3); Alkaline Phosphatase 48 U/L (39-117); Bilirubin,Direct < 0.2 mg/dL (0.0-0.3); Blood Urea Nitrogen 14 mg/dl (8-23); Gamma Glutamyl Transpeptidase 22 U/L (5-36); Uric Acid 2.5 mg/dL (2.5-8.0)
[2018-06-03] MEDS ORDERED: hydrOXYzine 25 MG TABLET PO PRN (08:54)
[2018-06-03] MEDS: HEPARIN 5,000 UNIT/ML VIAL SQ SCH ×2 (09:31→20:20)
[2018-06-03] MEDS: NICOTINE 21 MG PATCH TOPICAL SCH (09:32)
[2018-06-03] MEDS: OSELTAMIVIR PHOSPHATE 75 MG CAPSULE PO SCH ×2 (09:33→20:20)
[2018-06-03] MEDS: LEVOFLOXACIN 750 MG TABLET PO SCH (09:33)
[2018-06-03] MEDS: predniSONE 20 MG TABLET PO SCH (09:34)
[2018-06-03] MEDS: Budesonide/Formoterol Fumarate [Symbicort] 160-4.5 mcg Inhaler INH SCH ×3 (09:55→20:20)
[2018-06-03] MEDS: FUROSEMIDE 20 MG/2 ML VIAL IV SCH (09:55)
[2018-06-03] MEDS ORDERED: PNEUMOCOCCAL 23-VAL P-SAC VAC 0.5 ML SYRINGE IM ONE (10:00)
[2018-06-03] MEDS ORDERED: MAGNESIUM HYDROXIDE 30 ML ORAL.SUSP PO PRN (15:13)
[2018-06-03] MEDS ORDERED: FLEETS ADULT ENEMA PR PRN (15:13)
[2018-06-03] MEDS ORDERED: BISACODYL 10 MG SUPP.RECT PR PRN (15:13)
--- NOTE | 2018-06-03 17:21 | Discharge Summary ---
Medical - DS: Prov Patient information: Note initiated : 06/03/18 at 5:15 pm Service Date, if different from initiated Date: [] Patient: Emelia Candelaria a 63 y/o F admitted on 05/29/18 for Shortness of breath. Chief Complaint: [] Date of admission: 05/29/18 20:08 Discharge date: 06/05/18 Primary care physician: Isaias Viveros Consults: 05/29/18 Consult to Physician [CONS] Stat Comment: Consulting Provider: Sulma Silva Reason For Exam: Physician to Consult Medical - DS: Meds - Discharge Medications Prescriptions: predniSONE [Prednisone] 1 mg PO DAILY #1 tab.ds.pk Active and Home Medications: Home Medications albuterol sulfate HFA 90 mcg/actuation aerosol inhaler See Dose Instructions INHALATION Q4H PRN #36 g 07/08/17 [Rx Confirmed 05/29/18 Last Taken Unknown] alendronate 70 mg tablet 70 mg PO QWEEK #52 tab 07/08/17 [Rx Confirmed 05/29/18 Last Taken Unknown] budesonide-formoterol HFA 160 mcg-4.5 mcg/actuation aerosol inhaler 2 inh INHALATION TID #18 g 07/08/17 [Rx Confirmed 05/29/18 Last Taken Unknown] hydrocodone 10 mg-acetaminophen 325 mg tablet 1 tab PO Q4H PRN #100 tab 04/15/18 [Rx Confirmed 05/29/18 Last Taken Unknown] Medical - DS: Hosp Hospital course: Ms. Candelaria is a 63 year old F with history of COPD, active smoker presents to the emergency room for shortness of breath going on for the last 6 days. The patient notes her symptoms started on Wednesday and has progressively gotten worse since then. Last week and she was at the function from [facility] with a lot of people. She notes her symptoms started a day after that. She admits to having some cough with yellowish sputum subjective sensations of fever runny nose watery eyes. Her symptoms have progressively gotten worse to a point that she is unable to ambulate even within the room without significant shortness of breath. The patient therefore came to the emergency room for further e valuation. The patient admits to having cough associated with chest pain. She denies any nausea vomiting had some diarrhea denies any new joint pains no depression or anxiety denies any new skin rashes any changes in vision hearing or difficulty in swallowing she denies any bleeding or black stools. In the emergency room the patient was afebrile, heart rate 85 blood pressure 133 x 77 saturating in the 60s on room air. The patient had a WBC count of 12.2, hemoglobin 16.6 platelets 232 Sodium 140 potassium 4.2 bicarbonate 29 creatinine 0.6 glucose 97 lactic acid 2.8 troponin negative CK 126 pro calcitonin less than 0.05. Chest x-ray shows COPD and a new developing infiltrate EKG shows sinus tachycardia Patient is being admitted to the hospital for further management, in the emergency room patient received duo nebs steroids and Zithromax 05/30 Patient seen and examined, she does not feel significant improvement however to me appears somewhat more comfortable. She still has shortness of breath and cough. Labs are stable. Influenza A test is positive started the patient on Tamiflu 05/31 Pt seen examined no acute overnight issues still is short of breath x ray shows no new changes, had chest pain this AM, normal ekg, trop neg, d dimer mildly elevated, low supicion for PE. 06/01 Patient seen and examined, no acute overnight events. This morning clinically she felt better, however her oxygen needs went up. She is also more tachycardic today CT angios was done which is negative for pulmonary embolism. No new complaints or concerns 06/02 Pt seen examined no acute issues, tolerating po diet well, however is still very short of breath,feels better, but not back to [place] She still is short of breath even when going to the toilet, (bed side commode) on 2 L oxygen now, continue to wean 06/03 Feeling better today, dyspnea improved, mild nonproductive cough. She is quite anxious last night tachycardic she was given a hydroxyzine with good improvement she was able to rest heart rates in the 90s appears comfortable. No new complaints 06/04 Continues to feel improved. Yesterday was the first day where she really felt like she made some improvement. Oxygen needs decreasing but still requiring oxygen. Attempt to wean off oxygen today and discharge in the morning. No other complaints. Cough minimal, shortness of breath improved 06/05 Continued improvement in oxygen requirement still requiring some. Continues to feel better. Stable for discharge. RT to qualify for home oxygen. Discharge diagnosis: Influenza A pneumonia, COPD exacerbation, hypoxic respiratory failure Secondary discharge diagnosis: Tobacco abuse pulmonary hypertension - Time Spent with Patient Total time spent providing and/or coordinating discharge services: Greater than 30 minutes Medical - DS: Exam - Constitutional Vitals: Vital Signs Temp Pulse Pulse Resp BP BP Pulse Ox 06/03/18 16:00 98.5 F 20 132/78 92 06/03/18 12:51 100 H 20 06/03/18 11:44 97.9 F 20 120/80 93 06/03/18 08:00 90 16 102/64 90 06/03/18 07:12 91 H 18 91 06/03/18 04:00 97.2 F 91 H 16 120/76 91 06/02/18 23:13 98.3 F 97 H 18 120/60 93 06/02/18 19:28 98.0 F 110 H 20 140/88 91 06/02/18 18:30 116 H 20 Intake and Output 06/03/18 06/03/18 06/03/18 05:59 13:59 21:59 Intake Total 700 480 300 Output Total 650 1000 175 Balance 50 -520 125 Intake: Oral 700 480 300 Output: Void Amount 650 1000 175 Other: Meal Lunch Percent of Meal Consumed 100% Feeding Ability Independent Urine Appearance Clear Urine Color Pale Weight 46.266 kg Patient Weight 06/04/18 05:59 Weight 46.266 kg Medical - DS: Data Labs on day of discharge: Labs from last 24 hours 06/03/18 04:10 Sodium 140 Potassium 3.9 Chloride 97 Carbon Dioxide 32 H Anion Gap 11.0 BUN 14 Creatinine 0.5 L GFR Calculation 103 Glucose 96 Uric Acid 2.5 Calcium 9.6 Phosphorus 4.1 Magnesium 2.1 Total Bilirubin 0.3 Direct Bilirubin < 0.2 GGT 22 AST 29 ALT 26 Alkaline Phosphatase 48 Lactate Dehydrogenase 221 Total Protein 6.2 Albumin 3.4 Globulin 2.8 Albumin/Globulin Ratio 1.2 Triglycerides 100 Medical - DS: A/P - Patient/Caregiver Discharge Instructions Activity: increase activity as tolerated Diet: Regular Diet Additional Instructions: Home Oxygen per RT Prescriptions: predniSONE [Prednisone] 1 mg PO DAILY #1 tab.ds.pk - Follow up Plan Follow up with: Isaias Viveros MD [Primary Care Provider] - Disposition: Home, Self-Care Prognosis: Fair Rehab Potential: Fair Medical - DS: Qual - VTE Deep Vein Thrombosis/Pulmonary Embolism Present on Admission: No
[2018-06-03] MEDS: DOCUSATE SODIUM 100 MG CAPSULE PO SCH (20:18)
[2018-06-04] MEDS: 0.9 % SODIUM CHLORIDE 10 ML SYRINGE IV SCH ×3 (05:25→21:10)
[2018-06-04] MEDS: Budesonide/Formoterol Fumarate [Symbicort] 160-4.5 mcg Inhaler INH SCH ×3 (06:30→21:09)
--- NOTE | 2018-06-04 06:53 | Internal Med Progress Note ---
Medical - PN: Subj Patient information: Note initiated : 06/04/18 at 6:51 am Service Date, if different from initiated Date: [] Patient: Emelia Candelaria a 63 y/o F admitted on 05/29/18 for Shortness of breath. Chief Complaint: [] Interval history: Ms. Candelaria is a 63 year old F with history of COPD, active smoker presents to the emergency room for shortness of breath going on for the last 6 days. The patient notes her symptoms started on Wednesday and has progressively gotten worse since then. Last week and she was at the [facility] from [facility] with a lot of people. She notes her symptoms started a day after that. She admits to having some cough with yellowish sputum subjective sensations of fever runny nose watery eyes. Her symptoms have progressively gotten worse to a point that she is unable to ambulate even within the room without significant shortness of breath. The patient therefore came to the emergency room for further evaluation. The patient admits to having cough associated with chest pain. She denies any nausea vomiting had some diarrhea denies any new joint pains no depression or anxiety denies any new skin rashes any changes in vision hearing or difficulty in swallowing she denies any bleeding or black stools. In the emergency room the patient was afebrile, heart rate 85 blood pressure 133 x 77 saturating in the 60s on room air. The patient had a WBC count of 12.2, h emoglobin 16.6 platelets 232 Sodium 140 potassium 4.2 bicarbonate 29 creatinine 0.6 glucose 97 lactic acid 2.8 troponin negative CK 126 pro calcitonin less than 0.05. Chest x-ray shows COPD and a new developing infiltrate EKG shows sinus tachycardia Patient is being admitted to the hospital for further management, in the emergency room patient received duo nebs steroids and Zithromax 05/30 Patient seen and examined, she does not feel significant improvement however to me appears somewhat more comfortable. She still has shortness of breath and cough. Labs are stable. Influenza A test is positive started the patient on Tamiflu 05/31 Pt seen examined no acute overnight issues still is short of breath x ray shows no new changes, had chest pain this AM, normal ekg, trop neg, d dimer mildly elevated, low supicion for PE. 06/01 Patient seen and examined, no acute overnight events. This morning clinically she felt better, however her oxygen needs went up. She is also more tachycardic today CT angios was done which is negative for pulmonary embolism. No new complaints or concerns 06/02 Pt seen examined no acute issues, tolerating po diet well, however is still very short of breath,feels better, but not back to [place] She still is short of breath even when going to the toilet, (bed side commode) on 2 L oxygen now, continue to wean 06/03 Feeling better today, dyspnea improved, mild nonproductive cough. She is quite anxious last night tachycardic she was given a hydroxyzine with good improvement she was able to rest heart rates in the 90s appears comfortable. No new complaints 06/04 Continues to feel improved. Yesterday was the first day where she really felt like she made some improvement. Oxygen needs decreasing but still requiring oxygen. No other complaints. Cough minimal, shortness of breath improved Review of Systems: denies headache/fever/chills/nausea/vomiting/chest or abdominal pain/diarrhea. Otherwise see above. - Constitutional Vitals: Vital Signs Temp Pulse Resp BP Pulse Ox 98.1 F 81 18 124/84 90 06/04/18 03:50 06/04/18 03:50 06/04/18 03:50 06/04/18 03:50 06/04/18 03:50 Period Temp Pulse Resp BP Sys/Tomas Pulse Ox Last 24 Hr 97.0 F-98.5 F 81-113 14-20 102-132/62-84 90-93 Intake and Output 06/03/18 06/04/18 06/04/18 21:59 05:59 13:59 Intake Total 420 1060 Output Total 175 450 Balance 245 610 Weight 46.04 kg Intake & Output: Intake & Output 06/03/18 06/04/18 06/04/18 21:59 05:59 13:59 Intake Total 420 1060 Output Total 175 450 Balance 245 610 Weight 46.04 kg Intake: Oral 420 1060 Output: Void Amount 175 450 Other: Meal Dinner Percent of Meal Consumed 25% Feeding Ability Independent Urine Appearance Clear Urine Color Pale Exam: General: Alert, Awake, No acute Distress Eyes/N/T: EOMI, Head/Neck: neck supple, CV: RRR, No murmurs, Pulm: Diminished bilaterally but mildly improved aeration, prolonged expiratory phase, occasional mild exp wheezing, Abd: soft, nontender, +BS x4 Ext: no clubbing/cyanosis/edema Neuro: Alert, no focal deficits, moves all extremities Skin: warm/dry Medical - PN: Obj Da - Labs CBC & Chem 7: 06/02/18 03:45 06/03/18 04:10 Labs: Abnormal Lab Results 06/03/18 06/02/18 06/02/18 04:10 03:45 03:45 [place] % (Auto) 14.1 H Carbon Dioxide 32 H 33 H Creatinine 0.5 L 0.4 L Uric Acid 2.2 L Meds: Medications Acetaminophen (Tylenol) 650 mg PO Q6HP PRN PRN Reason: PAIN/FEVER > 101 Albuterol Sulfate (Ventolin) 2.5 mg NEB Q2HP PRN PRN Reason: Shortness Of Breath Last Admin: 05/30/18 01:09 Dose: 2.5 mg Documented by: Albuterol Sulfate (Ventolin) 1 puff INH Q4H PRN PRN Reason: asthma Bisacodyl (Dulcolax) 10 mg NC Q2-3DAYS PRN PRN Reason: Constipation Docusate Sodium (Colace) 100 mg PO BID [facility] Last Admin: 06/03/18 20:18 Dose: Not Given Documented by: Furosemide (Lasix) 20 mg IV DAILY [facility] Stop: 06/04/18 12:00 Last Admin: 06/03/18 09:55 Dose: 20 mg Documented by: Heparin Sodium (Porcine) (Heparin) 5,000 unit SQ Q12 [facility] Last Admin: 06/03/18 20:20 Dose: 5,000 unit Documented by: Hydroxyzine HCl (Atarax) 50 mg PO BIDP PRN PRN Reason: ANXIETY/SEDATION Last Admin: 06/03/18 21:57 Dose: 50 mg Documented by: Ipratropium [place] (Atrovent) 2.5 ml NEB Q6HRT [facility] Last Admin: 06/03/18 23:57 Dose: 2.5 ml Documented by: Levalbuterol HCl (Xopenex) 1.25 mg NEB Q6HRT [facility] Last Admin: 06/03/18 23:57 Dose: 1.25 mg Documented by: Levofloxacin (Levaquin) 750 mg PO DAILY [facility] Last Admin: 06/03/18 09:33 Dose: 750 mg Documented by: Magnesium Hydroxide (Milk Of Magnesia) 30 ml PO DAILYP PRN PRN Reason: Constipation Naloxone HCl (Narcan) 0.1 mg IV Q2MIN PRN PRN Reason: Opiate Reversal Nicotine (Nicoderm) 21 mg TOPICAL DAILY@1000 [facility] Last Admin: 06/03/18 09:32 Dose: 21 mg Documented by: Ondansetron HCl (Zofran) 4 mg IV Q6HP PRN PRN Reason: Nausea And Vomiting Oseltamivir Phosphate (Tamiflu) 75 mg PO BID [facility] Last Admin: 06/03/18 20:20 Dose: 75 mg Documented by: Oxycodone HCl (Roxicodone) 5 mg PO Q4HP PRN PRN Reason: pain not responding to apap. Budesonide/Formoterol Fumarate [Symbicort] 160-4.5 Mcg Inhaler 2 dose INH TID [facility] Last Admin: 06/03/18 20:20 Dose: 2 dose Documented by: Pred[facility] ([facility]one) [facility] Last Admin: 06/03/18 09:34 Dose: 40 mg Documented by: Sodium Biphosphate/Sodium Phosphate (Fleets Adult) 1 dose NC Q3-4DAYS PRN PRN Reason: Constipation Sodium Chloride (Saline Flush) 10 ml IV Q8 [facility] Last Admin: 06/04/18 05:25 Dose: 10 ml Documented by: Medical - PN: A/P - Time Spent With Patient Total time spent is greater than 50% in coordination of care (as documented) at patient's floor/unit and/or counseling patient: - Narrative A/P Narrative: A: *INFLUENZA A+: *AECOPD (not on home O2): *Acute hypoxic resp failure: complicated by underlying pulm fibrosis -CTA is negative for PE, Pulmonary fibrosis -down to 0.5-1LNC at rest *PNA: *Tobacco abuse: 2.5pack daily *Lactic acidosis, resolved *Degenerative joint disease. *Osteoporosis *Pulmonary Hypertension: P: -attempt to wean down/off O2 today, if unable will need RT to asses for home oxygen in AM prior to d/c -xopenex, IS -PO prednisone to contine(wean), -cont levofloxacin -Tamiflu to continue -slower than anticipated clinical recovery, but finally seeing improvement -nicotine patch -Smoking cessation counseling -ppx: hep sq Diet regular Full code. Medical - PN: Qual - Stroke Symptom Onset Unknown: No - VTE Deep Vein Thrombosis/Pulmonary Embolism Present on Admission: No
[2018-06-04] MEDS: IPRATROPIUM 2.5 ML AMPUL.NEB NEB SCH ×3 (07:19→19:47)
[2018-06-04] MEDS: LEVALBUTEROL 1.25 MG/3 ML AMPUL.NEB NEB SCH ×3 (07:19→19:47)
[2018-06-04] MEDS: OSELTAMIVIR PHOSPHATE 75 MG CAPSULE PO SCH ×2 (08:31→21:08)
[2018-06-04] MEDS: LEVOFLOXACIN 750 MG TABLET PO SCH (08:31)
[2018-06-04] MEDS: predniSONE 20 MG TABLET PO SCH (08:31)
[2018-06-04] MEDS: HEPARIN 5,000 UNIT/ML VIAL SQ SCH ×2 (08:32→21:08)
[2018-06-04] MEDS: DOCUSATE SODIUM 100 MG CAPSULE PO SCH ×2 (08:32→21:09)
[2018-06-04] MEDS: FUROSEMIDE 20 MG/2 ML VIAL IV SCH (08:32)
[2018-06-04] MEDS: NICOTINE 21 MG PATCH TOPICAL SCH (10:06)
[2018-06-05] MEDS: IPRATROPIUM 2.5 ML AMPUL.NEB NEB SCH ×2 (00:55→07:20)
[2018-06-05] MEDS: LEVALBUTEROL 1.25 MG/3 ML AMPUL.NEB NEB SCH ×2 (00:55→07:21)
[2018-06-05] MEDS: 0.9 % SODIUM CHLORIDE 10 ML SYRINGE IV SCH (04:45)
[2018-06-05] MEDS: predniSONE 20 MG TABLET PO SCH (08:39)
[2018-06-05] MEDS: HEPARIN 5,000 UNIT/ML VIAL SQ SCH (08:39)
[2018-06-05] MEDS: LEVOFLOXACIN 750 MG TABLET PO SCH (08:39)
[2018-06-05] MEDS: OSELTAMIVIR PHOSPHATE 75 MG CAPSULE PO SCH (08:39)
[2018-06-05] MEDS: DOCUSATE SODIUM 100 MG CAPSULE PO SCH (08:39)
[2018-06-05] MEDS: Budesonide/Formoterol Fumarate [Symbicort] 160-4.5 mcg Inhaler INH SCH (08:39)
[2018-06-05] MEDS: NICOTINE 21 MG PATCH TOPICAL SCH (13:03)
== END 2018-06-05 12:53 | disposition home or self-care (01) | DRG 193 ==
LOC: ED 14:37 → MEDSUR 20:08
PROVIDERS: ADMIT Internal Medicine; ATTEND Internal Medicine

== ENCOUNTER 2019-03-02 11:17 | Inpatient (IN) ==
[2019-03-02] MEDS ORDERED: ONDANSETRON 4 MG/2 ML VIAL IV ONE ×2 (11:32→16:30)
--- NOTE | 2019-03-02 11:33 | Emergency Department Note ---
Fall HPI - General Chief Complaint: Fall Stated Complaint: Fall, left hip pain Time Seen by Provider: 03/02/19 11:24 Source: patient, EMS Mode of arrival: EMS Limitations: no limitations - History of Present Illness HPI Narrative: 63-year-old female who fell up a couple of stairs landing on her left leg. She thinks she broke it. She got fentanyl en route via ambulance. Has known COPD. Denies hitting her head or neck. Denies loss of consciousness Bite injury to her left hand that is healing well from her dog She is not on a blood thinner. Takes oxygen at as needed. She did not eat breakfast this morning. Last meal was last night - Related Data Home Medications Medication Instructions Recorded Confirmed predniSONE [Prednisone] 5 mg PO DAILY 03/02/19 03/02/19 Previous Rx's Medication Instructions Recorded albuterol sulfate 90 mcg/actuation See Dose Instructions INHALATION 07/08/17 aerosol inhaler Q4H PRN #36 g budesonide-formoterol HFA 160 2 inh INHALATION TID #18 g 07/08/17 mcg-4.5 mcg/actuation aerosol inhaler hydrocodone 10 mg-acetaminophen 1 tab PO Q4H PRN #100 tab 04/15/18 325 mg tablet Allergies Allergy/AdvReac Type Severity Reaction Status Date / Time geiger Allergy Mild Rash Verified 03/02/19 11:18 silver Allergy Mild Rash Verified 03/02/19 11:18 fluconazole AdvReac Mild Hallucinati Verified 03/02/19 11:18 ng lorazepam [From Ativan] AdvReac Mild Confusion Verified 03/02/19 11:18 Review of Systems All systems ED: reviewed and negative except as stated. Fall PMH - Past Medical History Attestation: Yes: The following information was validated with the patient. [facility] Narrative: Family History (Last Reviewed 01/20/18 @ 08:01 by Isaias Viveros MD) mother Malignant neoplasm of bone Malignant neoplasm sister Malignant neoplasm of breast Malignant neoplasm father Cardiac disease Medical History (Last Reviewed 01/20/18 @ 08:01 by Isaias Viveros MD) Osteoporosis (Chronic) Tobacco abuse (Chronic) Renal mass (Chronic 07/24/14) Pulmonary hypertension (Chronic) Kidney mass (Chronic 11/20/13) Uterine fibroid (Chronic) Degeneration of lumbar intervertebral disc (Chronic) Chronic pain syndrome (Chronic) COPD (chronic obstructive pulmonary disease) (Chronic) Asthma (Chronic) Alcohol abuse (Chronic) Adrenal adenoma (Chronic) Abdominal pain (Resolved 08/18/13) Abnormal finding on radiology exam (Resolved) Chronic pain (Resolved) Diarrhea (Resolved) Disorder of kidney and ureter (Resolved) Hypoalbuminemia (Resolved) Hyponatremia (Resolved) Malnutrition (Resolved) Metabolic acidosis (Resolved) Nocturia (Resolved) Pelvic abscess (Resolved 09/19/13) Sepsis (Resolved 08/18/13) Urinary stream slowing (Resolved) Past Surgical History (Last Updated 01/20/18 @ 08:34 by Isaias Viveros MD) Hx of partial nephrectomy (Chronic 07/24/14) History of liver biopsy (Resolved 07/24/14) Hx of elbow surgery (Resolved) Hx of hand surgery (Resolved) Medical history: Reports: asthma, COPD, osteoporosis, other (Pulmonary hypertension, uterine fibroids, chronic low back pain, adrenal adenoma) Surgical history ED: Reports: orthopedic, other (Elbow) Psychiatric history: Reports: no psych history RUBBER PROCESS HAND history: Reports: bilateral tubal ligation - Social History smoking status: Current every day smoker Alcohol use: Reports: Heavy Physical Exam Thin female. Normocephalic atraumatic. Conjunctive are clear sclerae white and icteric. No nasal discharge or congestion. Oropharynx pink and moist. Heart is regular rate and rhythm no murmur appreciated. Lungs are clear to auscultation bilaterally without wheezes rales rhonchi or. Left leg is deformed likely fractured. She does retain feeling in her left foot and lower leg but does not want to move it secondary to pain. Right leg appears normal. Left hand with 4 cm x 2 cm bite wound is healing well. She has various other scabs and wounds that are also various stages of healing on her arms. She is alert oriented able to answer questions appropriately and cooperate for physical exam and interview Limitations: no limitations Course Vital Signs Temperature 97.5 F 03/02/19 11:18 Pulse Rate 91 H 03/02/19 11:18 Respiratory Rate 18 03/02/19 11:18 Blood Pressure 168/103 03/02/19 11:18 Pulse Oximetry (%) 95 03/02/19 11:18 Temperature 97.5 F 03/02/19 11:18 Pulse Rate 62 03/02/19 13:15 Respiratory Rate 18 03/02/19 11:18 Blood Pressure 147/83 03/02/19 13:15 Pulse Oximetry (%) 96 03/02/19 13:15 Fall - Lab Data Lab results reviewed: Yes I reviewed the patient's lab results. Result diagrams: 03/02/19 11:44 03/02/19 11:44 Lab Results 03/02/19 03/02/19 03/02/19 Range/Units 11:32 11:44 11:44 WBC 8.2 (4.5-11.0) K/mcL RBC 5.29 H (4.00-5.20) M/mcL Hgb 16.8 H (12.0-15.0) g/dL Hct 50.4 H (36.0-48.0) % MCV 95.2 (80.0-100.0) fL MCH 31.6 (26.0-34.0) pg MCHC 33.2 (31.0-36.0) g/dL RDW 14.8 H (11.5-14.5) % Plt Count 196 (140-440) K/mcL MPV 9.2 (7.4-10.4) fL Gran % 88.1 H (38.0-78.0) % Lymph % (Auto) 7.9 L (15.5-49.0) % [place] % (Auto) 3.4 (1.0-12.0) % Eos % (Auto) 0.3 (0.0-7.0) % Baso % (Auto) 0.3 (0.0-2.0) % Gran # 7.2 (1.8-8.0) K/mcL Lymph # (Auto) 0.7 L (1.5-4.8) K/mcL [place] # (Auto) 0.3 (0.1-0.9) K/mcL Eos # (Auto) 0 (0.0-0.7) K/mcL Baso # (Auto) 0 (0.0-0.3) K/mcL Sodium 137 (133-145) mmol/L Potassium 4.4 (3.3-5.1) mmol/L Chloride 97 (96-108) mmol/L Carbon Dioxide 29 (22-30) mmol/L Anion Gap 11.0 (8-16) BUN 9 (8-23) mg/dl Creatinine 0.5 L (0.6-1.1) mg/dl GFR Calculation 103 Glucose 111 H (70-105) mg/dL Calcium 9.0 (8.6-10.4) mg/dl Total Bilirubin 0.6 (0.0-1.0) mg/dL AST 26 (0-37) U/l ALT 22 (0-40) U/l Alkaline Phosphatase 52 (39-117) U/L Total Protein 6.6 (5.9-8.4) gm/dL Albumin 4.1 (3.2-5.2) gm/dL Globulin 2.5 (2.2-3.7) gm/dL Albumin/Globulin Ratio 1.6 (1.0-2.3) Urine Color Yellow Urine Appearance Clear Urine pH 7.0 (5.0-9.0) Ur Specific [place] 1.018 (1.000-1.035) Urine Protein 100 A (NEG) mg/dL Urine Glucose (UA) Negative (NEG) mg/dL Urine Ketones 5/tr A (NEG) mg/dL Urine Occult Blood Neg (<0.03) mg/dL Urine Nitrate Neg (NEG) Urine Bilirubin Neg (NEG) mg/dL Urine Urobilinogen 2.0 A (NEG) mg/dL Ur Leukocyte Esterase Neg (NEG) /uL Urine RBC 0 (0-1) /hpf Urine WBC < 1 (0-4) /hpf Ur Squamous Epith Cells 1 (0-4) /hpf Urine Bacteria 0 (0) /hpf Urine Mucus Many A (0) /hpf - Radiology Data Radiology results reviewed: Yes I reviewed the patient's radiology results. Chest x-ray shows stigmata of COPD but nothing acute X-ray of the femur shows midshaft fracture of the left femur spiral significantly displaced - EKG Data EKG attestation: Yes I reviewed and interpreted this EKG., Yes There are no EKG findings of acute coronary syndrome, Yes This EKG will be read by river transportation worker EKG results narrative: EKG shows a rate is 67 with atrial paced complexes Disposition Pt seen by SALES LEDGER CLERK/PA only: No Clinical Impression: Femur fracture, left Qualifiers: Encounter type: initial encounter Femur location: shaft Fracture type: closed Fracture morphology: spiral Fracture alignment: displaced Qualified Code(s): S72.342A - Displaced spiral fracture of shaft of left femur, initial encounter for closed fracture Summary: Suspect midshaft femur fracture. Start Dilaudid Zofran and IV fluids. Work-up for possible surgery with chest x-ray EKG and laboratory. After x-ray plan to contact anesthesia if needed for sedation due to her COPD Discussed with Dr. Huber, orthopedist on-call, he agreed to come in and asked the patient fracture. Will admit to hospitalist. Recommended Eckert's traction Discussed with Dr. Maynard, hospitalist, who agreed to accept patient for further care and evaluation in the hospital Disposition: Xfer As Inpt ([facility]) Condition: Fair Referrals: Isaias Viveros MD [Primary Care Provider] -
[2019-03-02] MEDS ORDERED: NICOTINE 21 MG PATCH TOPICAL ONE (11:48)
[2019-03-02 12:16] LABS: Basophils # (Auto) 0 K/mcL (0.0-0.3); Basophils % (Auto) 0.3 % (0.0-2.0); Eosinophils # (Auto) 0 K/mcL (0.0-0.7); Eosinophils % (Auto) 0.3 % (0.0-7.0); Granulocytes % (Auto) 88.1 % (38.0-78.0); Hematocrit 50.4 % (36.0-48.0); Hemoglobin 16.8 g/dL (12.0-15.0); Lymphocytes # (Auto) 0.7 K/mcL (1.5-4.8); Lymphocytes % (Auto) 7.9 % (15.5-49.0); Mean Cell Volume 95.2 fL (80.0-100.0); Mean Corpuscular HGB Conc 33.2 g/dL (31.0-36.0); Mean Platelet Volume 9.2 fL (7.4-10.4); Monocytes # (Auto) 0.3 K/mcL (0.1-0.9); Monocytes % (Auto) 3.4 % (1.0-12.0); Platelet Count 196 K/mcL (140-440); RBC 5.29 M/mcL (4.00-5.20); Red Cell Distribution Width 14.8 % (11.5-14.5); WBC 8.2 K/mcL (4.5-11.0)
[2019-03-02] MEDS: HYDROmorphone 2 MG/ML VIAL IV PRN ×4 (12:16→14:29)
[2019-03-02 12:20] LABS: Appearance,Urine CLEAR; Bacteria,Urine 0 /hpf (0); Bilirubin,Urine NEG (NEG); Color,Urine YELLOW; Glucose,Urine (UA) NEGATIVE (NEG); Ketones,Urine 5/TR mg/dL (NEG); Leukocyte Esterase,Urine NEG /uL (NEG); Mucus,Urine MANY /hpf (0); Nitrate,Urine NEG (NEG); Protein,Urine 100 mg/dL (NEG); Specific Gravity,Urine 1.018 (1.000-1.035); Urine Blood NEG mg/dL (<0.03); Urine RBC 0 /hpf (0-1); Urine Squamous Epithelial Cell 1 /hpf (0-4); Urine WBC < 1 /hpf (0-4)
[2019-03-02 12:33] LABS: ALT/SGPT 22 U/l (0-40); AST/SGOT 26 U/l (0-37); Albumin 4.1 gm/dL (3.2-5.2); Albumin/Globulin Ratio 1.6 (1.0-2.3); Alkaline Phosphatase 52 U/L (39-117); Bilirubin,Total 0.6 mg/dL (0.0-1.0); Blood Urea Nitrogen 9 mg/dl (8-23); Carbon Dioxide 29 mmol/L (22-30); Chloride 97 mmol/L (96-108); Globulin 2.5 gm/dL (2.2-3.7); Glomerular Filtration Rate 103; Glucose 111 mg/dL (70-105)
--- NOTE | 2019-03-02 12:37 | XRay Report ---
INDICATION: Fractured femur TECHNIQUE: AP chest x-ray,portable supine COMPARISON: Previous examination dated 05/31/2018 FINDINGS:Lungs are negative. No parenchymal infiltrate or mass. Heart size and vascularity are normal. Julia and mediastinum are negative. There is no pleural fluid. No acute or focal abnormality. No evidence for significant fat emboli IMPRESSION: Negative AP portable chest x-ray Interpreted and Authenticated by: Steven Luna 03/02/19
--- NOTE | 2019-03-02 12:38 | XRay Report ---
CLINICAL INFORMATION: Fall. Leg and hip pain TECHNIQUE: AP and lateral left femur COMPARISON: None. FINDINGS: Spiral fracture of the left femoral diaphysis. There is medial and anterior angulation deformity as well as mild foreshortening. There is significant displacement Left hip is negative. Distal left femur is negative. IMPRESSION: Angulated and displaced spiral fracture of the left femoral diaphysis Interpreted and Authenticated by: Steven Luna 03/02/19
--- NOTE | 2019-03-02 13:44 | Internal Med History&Physical ---
Medical - H&P: [facility] Patient information: Note initiated : 03/02/19 at 1:40 pm Service Date, if different from initiated Date: [] Patient: Emelia Candelaria a 63 y/o F admitted on for Fall, left hip pain. Chief Complaint: [] Chief complaint: Fall/left hip injury History of present illness: Ms. Candelaria is a 63 year old F with history of O2 dependent COPD, long-standing history of active smoking presents presents to ER following a fall off stairs this morning sustaining trauma to her left hip. She was brought in by EMS. She denied any precipitating events including lightheadedness chest palpitation dizziness prior to fall. She attributes the fall to getting off balance. Initial work-up was consistent with left hip fracture. Orthopedics was consulted and hospitalist service was requested for admission and management of medical issues/preoperative risk evaluation. At the time of evaluation patient is alert and oriented. She is significantly short of breath currently on 2 L oxygen. She appears anxious. Denies chest pain, headache. Her last hospitalization was in May 11 to COPD flare. She actively smokes 1/2 to 2 pack a day. She is accompanied with her fianc. She denies diarrhea, dysuria, recent changes in medications. Review of systems 10 point review system was performed and is negative except one discussed above Medical - H&P: PMH Medical history: Osteoporosis (Chronic) Tobacco abuse (Chronic) Renal mass (Chronic 07/24/14) Pulmonary hypertension (Chronic) Kidney mass (Chronic 11/20/13) Uterine fibroid (Chronic) Degeneration of lumbar intervertebral disc (Chronic) Chronic pain syndrome (Chronic) COPD (chronic obstructive pulmonary disease) (Chronic) Asthma (Chronic) Alcohol abuse (Chronic) Adrenal adenoma (Chronic) Abdominal pain (Resolved 08/18/13) Abnormal finding on radiology exam (Resolved) Chronic pain (Resolved) Diarrhea (Resolved) Disorder of kidney and ureter (Resolved) Hypoalbuminemia (Resolved) Hyponatremia (Resolved) Malnutrition (Resolved) Metabolic acidosis (Resolved) Nocturia (Resolved) Pelvic abscess (Resolved 09/19/13) Sepsis (Resolved 08/18/13) Urinary stream slowing (Resolved) Surgical history: Past Surgical History (Last Updated 01/20/18 @ 08:34 by Isaias Viveros MD) Hx of partial nephrectomy (Chronic 07/24/14) History of liver biopsy (Resolved 07/24/14) Hx of elbow surgery (Resolved) Hx of hand surgery (Resolved) Pertinent family history: Family History (Last Reviewed 01/20/18 @ 08:01 by Isaias Viveros MD) mother Malignant neoplasm of bone Malignant neoplasm sister Malignant neoplasm of breast Malignant neoplasm father Cardiac disease Medical - H&P: Meds Home Medications Medication Instructions Recorded Confirmed Type albuterol sulfate 90 mcg/actuation See Dose Instructions INHALATION 07/08/17 03/02/19 Rx aerosol inhaler Q4H PRN #36 g budesonide-formoterol HFA 160 2 inh INHALATION TID #18 g 07/08/17 03/02/19 Rx mcg-4.5 mcg/actuation aerosol inhaler hydrocodone 10 mg-acetaminophen 1 tab PO Q4H PRN #100 tab 04/15/18 03/02/19 Rx 325 mg tablet predniSONE [Prednisone] 5 mg PO DAILY 03/02/19 03/02/19 History Allergies Allergy/AdvReac Type Severity Reaction Status Date / Time geiger Allergy Mild Rash Verified 03/02/19 11:18 silver Allergy Mild Rash Verified 03/02/19 11:18 fluconazole AdvReac Mild Hallucinati Verified 03/02/19 11:18 ng lorazepam [From Ativan] AdvReac Mild Confusion Verified 03/02/19 11:18 Medical - H&P: Exam - Constitutional Vitals: Temp Pulse Resp BP Pulse Ox 97.5 F 62 18 147/83 96 03/02/19 11:18 03/02/19 13:15 03/02/19 11:18 03/02/19 13:15 03/02/19 13:15 General appearance: moderate distress (Anxious), thin Exam: Head normocephalic Temporal wasting Oral cavity dry No ear nose discharge Neck lymphadenopathy S1-S2 regular rhythm Barrel chest/diminished breath sounds bases/expiratory rhonchi Abdomen soft nontender lower extremities no cyanosis clubbing no joint swelling erythema Skin no suspicious lesion Psych alert cooperative but anxious Neuro nonfocal Medical - H&P: Reslt - Labs CBC & Chem 7: 03/02/19 11:44 03/02/19 11:44 Labs: Short CBC 03/02/19 Range/Units 11:44 WBC 8.2 (4.5-11.0) K/mcL Hgb 16.8 H (12.0-15.0) g/dL Hct 50.4 H (36.0-48.0) % Plt Count 196 (140-440) K/mcL BMP 03/02/19 11:44 Sodium 137 Potassium 4.4 Chloride 97 Carbon Dioxide 29 BUN 9 Creatinine 0.5 L Glucose 111 H Calcium 9.0 Liver Function 03/02/19 Range/Units 11:44 Total Bilirubin 0.6 (0.0-1.0) mg/dL AST 26 (0-37) U/l ALT 22 (0-40) U/l Alkaline Phosphatase 52 (39-117) U/L Albumin 4.1 (3.2-5.2) gm/dL Urine 03/02/19 Range/Units 11:32 Urine Color Yellow Urine Appearance Clear Urine pH 7.0 (5.0-9.0) Ur Specific [place] 1.018 (1.000-1.035) Urine Protein 100 A (NEG) mg/dL Urine Glucose (UA) Negative (NEG) mg/dL Medical - H&P: A/P (1) Femur fracture, left Current visit: Yes Status: Acute * Left femur fracture-orthopedic consulted. Continue management per orthopedics. Keep n.p.o. Due for surgery later this evening. * Pain management continue as needed opioids * Preoperative risk evaluation-based on [employer] [place] [employer] risk stratification patient would fall under high operative risk category based on prior functional baseline, advanced COPD and surgery specific risk. Patient however does not have a history of decompensated heart failure or chronic kidney disease or insulin-dependent diabetes. There are no modifiable risk factors at this time and was discussed with patient. Patient can proceed with surgery. Surgery and anesthesia specific risks will be discussed by individual care providers. Postoperatively patient should be maintained on incentive spirometer use/end-tidal CO2 monitoring/avoidance of excessive narcotics which may induce respiratory depression * History of COPD-continue bronchodilators//postoperative pulmonary toilet/incentive spirometer use/supplemental oxygen. * History of long-standing tobacco dependence with over 100 pack history of smoking. Nicotine patch/cessation counseling * History of DJD/osteoporosis * Pulmonary hypertension secondary to underlying COPD. * Full code * Prophylaxis will be as per orthopedics Plan * Inpatient admission * Orthopedic consult * Keep n.p.o./pain management/crystalloids * Review postop * Prior medical condition management and home meds * Nicotine patch
--- NOTE | 2019-03-02 14:19 | Orthopedic History & Physical ---
History of Present Illness Patient information: Note initiated : 03/02/19 at 2:17 pm Service Date, if different from initiated Date: [] Patient: Emelia Candelaria a 63 y/o F admitted on for Fall, left hip pain. Chief Complaint: [] Chief complaint: left hip pain HPI: Ms. Candelaria is a 63 year old female who had a fall this morning injuring her right hip. She called EMS and was evaluated at [facility] ED where she was discovered to have a left femur fracture prompting orthopaedic consultation. She is currently resting well with her pain controlled. She has no associated symptoms and is otherwise feeling okay. She denies any CP, DONALDSON, nausea, fever, vomiting, weakness, back pain, neck pain, numbness/tingling, or any other acute symptoms. Review of Systems Constitutional: as per HPI Past History Past medical history: Osteoporosis, COPD, Past surgical history: Left Elbow surgery for fracture Past social history: Smoker Medications and Allergies Home Medications Medication Instructions Recorded Confirmed Type albuterol sulfate 90 mcg/actuation See Dose Instructions INHALATION 07/08/17 03/02/19 Rx aerosol inhaler Q4H PRN #36 g budesonide-formoterol HFA 160 2 inh INHALATION TID #18 g 07/08/17 03/02/19 Rx mcg-4.5 mcg/actuation aerosol inhaler hydrocodone 10 mg-acetaminophen 1 tab PO Q4H PRN #100 tab 04/15/18 03/02/19 Rx 325 mg tablet predniSONE [Prednisone] 5 mg PO DAILY 03/02/19 03/02/19 History Allergies Allergy/AdvReac Type Severity Reaction Status Date / Time geiger Allergy Mild Rash Verified 03/02/19 11:18 silver Allergy Mild Rash Verified 03/02/19 11:18 fluconazole AdvReac Mild Hallucinati Verified 03/02/19 11:18 ng lorazepam [From Ativan] AdvReac Mild Confusion Verified 03/02/19 11:18 Physical Examination - Hip left Gait: other (non-weight bearing) Tenderness with palpation: other (left femur midshaft) Pain with motion: other (no ROM secondary to pain) - Fracture left femur Location of fracture: femur midshaft spiral Appearance: swelling Compartments: soft Distal extremity neurovascularly intact: Yes Proximal joint involvement: No Distal joint involvement: No Other injury: tendon injury: no, ligament injury: no, vascular injury: no, nerve injury: no Results - Labs Result Diagrams: 03/02/19 11:44 03/02/19 11:44 Labs: Abnormal lab results 03/02/19 03/02/19 03/02/19 Range/Units 11:32 11:44 11:44 RBC 5.29 H (4.00-5.20) M/mcL Hgb 16.8 H (12.0-15.0) g/dL Hct 50.4 H (36.0-48.0) % RDW 14.8 H (11.5-14.5) % Gran % 88.1 H (38.0-78.0) % Lymph % (Auto) 7.9 L (15.5-49.0) % Lymph # (Auto) 0.7 L (1.5-4.8) K/mcL Creatinine 0.5 L (0.6-1.1) mg/dl Glucose 111 H (70-105) mg/dL Urine Protein 100 A (NEG) mg/dL Urine Ketones 5/tr A (NEG) mg/dL Urine Urobilinogen 2.0 A (NEG) mg/dL Urine Mucus Many A (0) /hpf H & H 03/02/19 Range/Units 11:44 Hgb 16.8 H (12.0-15.0) g/dL Hct 50.4 H (36.0-48.0) % All other labs normal. - Diagnostic results Hip x-ray: image reviewed (left femur x-rays show a displaced spiral fracture of the midshaft of the femur) Assessment and Plan (1) Displaced fracture of shaft of left femur After H&P the patient was counseled on surgery and its risks and benefits to include a open reduction and internal fixation of the left femur fracture via cephalomedullary nailing. She understands the surgery and the risks and benefits and would like to proceed. Status: Acute Qualifiers: Encounter type: initial encounter Fracture type: closed Fracture morphology: spiral Qualified Code(s): S72.342A - Displaced spiral fracture of shaft of left femur, initial encounter for closed fracture Physical Exam Limitations: no limitations Head: atraumatic, normocephalic Eye: Present: PERRL ENT: Present: normal exam Neck: Present: normal inspection, full ROM. Absent: tenderness, thyromegaly Chest: Present: normal inspection, symmetric chest wall rise. Absent: tenderness, rash Respiratory: Present: wheezes, prolonged expiratory phase Cardiovascular: Present: regular rate, normal rhythm. Absent: systolic murmur, diastolic murmur, rubs, gallop Abdominal: Present: soft, distention. Absent: tenderness, guarding, rebound, rigidity, mass Neurological: Present: alert, oriented X3 Skin: Present: warm, cool, pallor (skin lesions noted over hands and arms without infection)
[2019-03-02] MEDS ORDERED: MAGNESIUM SULFATE 2 GM/50 ML BAG IV PRN ×2 (14:48→19:33)
[2019-03-02] MEDS ORDERED: MAGNESIUM HYDROXIDE 30 ML ORAL.SUSP PO PRN ×3 (14:48→20:15)
[2019-03-02] MEDS ORDERED: HYDROcodone/APAP 5/325MG TABLET PO PRN (14:48)
[2019-03-02] MEDS ORDERED: POTASSIUM CHLORIDE 20 MEQ PACKET PO PRN ×2 (14:48→19:33)
[2019-03-02] MEDS ORDERED: ACETAMINOPHEN 650 MG/65 ML BOTTLE IV PRN ×2 (14:48→19:33)
[2019-03-02] MEDS ORDERED: ONDANSETRON 4 MG/2 ML VIAL IV PRN ×4 (14:48→20:16)
[2019-03-02] MEDS ORDERED: POLYETHYLENE GLYCOL 3350 17 GM PACKET PO PRN ×3 (14:48→20:15)
[2019-03-02] MEDS ORDERED: ACETAMINOPHEN 325 MG TABLET PO PRN ×2 (14:48→19:33)
[2019-03-02] MEDS ORDERED: 0.9 % SODIUM CHLORIDE 10 ML SYRINGE IV SCH ×2 (14:48→22:00)
[2019-03-02] MEDS ORDERED: BISACODYL 10 MG SUPP.RECT PR PRN ×3 (14:48→20:15)
[2019-03-02] MEDS ORDERED: 0.9 % SODIUM CHLORIDE 1,000 ML IV SCH (14:48)
[2019-03-02] MEDS ORDERED: SCOPOLAMINE 1 PATCH PATCH TOPICAL PRN (15:11)
[2019-03-02] MEDS ORDERED: IPRATROPIUM/ALBUTEROL 3 ML AMPUL.NEB NEB PRN ×2 (15:11→17:45)
[2019-03-02] MEDS: IPRATROPIUM/ALBUTEROL 3 ML AMPUL.NEB NEB SCH ×3 (15:49→22:58)
[2019-03-02] MEDS ORDERED: MIDAZOLAM 2 MG/2 ML VIAL IV ONE (16:30)
[2019-03-02] MEDS ORDERED: ROPIVACAINE HCL/PF 30 ML VIAL IJ ONE (16:30)
[2019-03-02] MEDS ORDERED: GLYCOPYRROLATE 0.2 MG/ML VIAL IV ONE (16:30)
[2019-03-02] MEDS ORDERED: LIDOCAINE HCL/PF 100 MG/5 ML SYRINGE IV ONE (16:30)
[2019-03-02] MEDS ORDERED: NALBUPHINE 10 MG/ML AMPUL IV ONE (16:30)
[2019-03-02] MEDS ORDERED: fentaNYL 100 MCG/2 ML VIAL IV ONE (16:30)
[2019-03-02] MEDS ORDERED: PROPOFOL 200 MG/20 ML VIAL IV ONE (16:30)
[2019-03-02] MEDS ORDERED: KETAMINE 100 MG/ML ML IV ONE (16:30)
[2019-03-02] MEDS ORDERED: DEXAMETHASONE 10 MG/ML VIAL IV ONE (16:30)
[2019-03-02 16:37] LABS: Estimated Average Glucose(eAG) 108 mg/dL; Hemoglobin A1C 5.4 % HGB (4.0-6.0)
[2019-03-02] MEDS ORDERED: FLUMAZENIL 0.1 MG/ML ML IV PRN (17:45)
[2019-03-02] MEDS ORDERED: LACTATED RINGERS 1,000 ML IV SCH (17:45)
[2019-03-02] MEDS ORDERED: NALOXONE HCL 0.4 MG/ML VIAL IV PRN (17:45)
[2019-03-02] MEDS ORDERED: PROMETHAZINE 25 MG/ML VIAL IV PRN (17:45)
[2019-03-02] MEDS ORDERED: fentaNYL 100 MCG/2 ML VIAL IV PRN (17:45)
--- NOTE | 2019-03-02 17:46 | Brief Operative Note ---
Date of procedure: 03/02/19 Pre-op diagnosis: left femur fracture Post-op diagnosis: same Procedure: intramedullary nailing left femur Grafts/Implants: Yes Anesthesia: GETA Complications: none Surgeon: Steven Huber Cv Tech: Wil Arriaga Estimated blood loss (cc): 100 Specimens Removed/Pathology: none sent Condition: stable Disposition: PACU
[2019-03-02] MEDS ORDERED: BENZOCAINE/MENTHOL 1 LOZENGE PO PRN (17:51)
[2019-03-02] MEDS ORDERED: METHOCARBAMOL 750 MG TABLET PO PRN ×2 (17:51→20:16)
[2019-03-02] MEDS ORDERED: HYDROcodone/APAP 10/325MG TABLET PO PRN (17:51)
[2019-03-02] MEDS ORDERED: FLEETS ADULT ENEMA PR PRN ×2 (17:51→20:15)
[2019-03-02] MEDS ORDERED: TRANEXAMIC ACID 1,000 MG/10 ML VIAL IV SCH (17:51)
[2019-03-02] MEDS ORDERED: ceFAZolin 1 GM VIAL IV SCH (18:00)
--- NOTE | 2019-03-02 19:19 | XRay Report ---
CLINICAL INFORMATION: Open reduction and internal fixation of left femoral diaphyseal fracture TECHNIQUE: 1.2 minutes intraoperative fluoroscopy utilized. Multiple spot films obtained COMPARISON: Prereduction examination dated 03/02/2019 FINDINGS: Spot films demonstrate an intramedullary nail with locking screws. Alignment is anatomic IMPRESSION: Intraoperative fluoroscopy and spot films obtained. Open reduction and internal fixation of left femoral diaphyseal fracture Interpreted and Authenticated by: Steven Luna 03/02/19
[2019-03-02] MEDS: BUDESONIDE 0.5 MG/2 ML AMPUL.NEB NEB SCH (20:29)
[2019-03-02] MEDS: SENNOSIDES 1 TABLET PO SCH (20:51)
[2019-03-02] MEDS: HYDROcodone/APAP 10/325MG TABLET PO PRN (20:52)
[2019-03-02] MEDS: ASPIRIN 81 MG TAB.CHEW PO SCH (20:52)
[2019-03-02] MEDS: DOCUSATE SODIUM 100 MG CAPSULE PO SCH (20:52)
[2019-03-02] MEDS ORDERED: DOCUSATE SODIUM 100 MG CAPSULE PO SCH ×2 (21:00)
[2019-03-02] MEDS ORDERED: BUDESONIDE 0.5 MG/2 ML AMPUL.NEB NEB SCH (21:00)
[2019-03-02] MEDS ORDERED: SENNOSIDES 1 TABLET PO SCH (21:00)
[2019-03-02] MEDS ORDERED: MELATONIN 3 MG TABLET PO PRN ×2 (21:00)
[2019-03-02] MEDS ORDERED: ASPIRIN 81 MG TAB.CHEW PO SCH (21:00)
[2019-03-02] MEDS ORDERED: SENNOSIDES/DOCUSATE SODIUM 1 TAB TABLET PO SCH (21:00)
--- NOTE | 2019-03-02 21:38 | Operative Note ---
DATE OF OPERATION: 03/02/2019 PREOPERATIVE DIAGNOSIS: Left spiral femoral shaft fracture. POSTOPERATIVE DIAGNOSIS: Left spiral femoral shaft fracture. PROCEDURE: Left femur intramedullary nailing. SURGEON: Pinky Huber M.D. MANAGER [employer] PLANNING SURGEON: Wil Arriaga PA-C ANESTHESIA: Spinal with LMA assist. ESTIMATED BLOOD LOSS: 100 mL. COMPLICATIONS: None noted. SPECIMENS REMOVED: None. DRAINS: None. IMPLANTS: Ashli fully threaded locking screws 5 x 65, 5 x 45, 5 x 65; [place] T2 alpha femur antegrade system femoral nail, 13 x 380 mm. INDICATIONS: Ms. Candelaria fell going upstairs and was unable to ambulate. Radiographs have confirmed a displaced femoral shaft fracture of the mid to distal femur. The patient was admitted to the hospital and underwent medical clearance. After a long discussion about treatment options, the patient elected to proceed with intramedullary nailing. The risks and benefits were discussed with the patient in detail including, but not limited to, the risks of anesthesia, problems with the heart or lungs related to anesthesia, infection, compromise or injury to the nerves and blood vessels, deep venous thrombosis, pulmonary embolism, pneumonia, continued pain after surgery, worsening pain or symptoms after surgery, swelling, loss of motion, malunion, non-union, leg length discrepancy, and need for repeat surgery. DESCRIPTION OF PROCEDURE: The patient was seen in pre-anesthesia waiting room where all questions were answered and the correct side and site were identified and marked. The patient was then brought to the operating room and administered the anesthetic and given preoperative antibiotics. A time-out was then called. The patient was placed on the fracture table with all prominences well padded. The leg was brought into traction, adduction, and slight internal rotation. We used c-arm with orthogonal views to confirm anatomic reduction of the fracture. The extremity was prepped and draped in the usual sterile fashion. C-arm was again used to confirm landmarks. A percutaneous incision was created about 4 centimeters proximal to the greater trochanter. A guide pin was placed into the femoral canal under fluoroscopy after we found the appropriate starting position along the medial boarder of the trochanter and just anterior to the center position laterally. We placed a protector sleeve proximally and over-reamed with the 17 mm proximal reamer. Next, we changed out the guide pin for a ball-tipped guide rosa and placed it into the femoral canal. Position was confirmed with the c-arm. I then sequentially reamed up to a 14.5 with good cortical chatter and confirmed that the guidepin was in the [id number] position in the knee distally, and the fracture was anatomically aligned. The T2 alpha femur antegrade system femoral nail, 13 x 380 mm, was then placed with appropriate depth and version using a percutaneous targeting guide. The distal attachment was created. We placed 2 screws distally from lateral to medial using the c-arm as the guide. I then back flapped and placed an additional screw proximally from proximal to distal into the area of the lesser trochanter. I then took final radiographs, AP, lateral, and oblique views at the distal femur at the fracture site and proximally to confirm that the fracture was anatomically reduced. The hardware was in good position. We thoroughly irrigated the three percutaneous incisions and closed the deep fascia with #0 Vicryl. We closed the subcutaneous tissue and skin in layers out to jocelyn in the skin. A sterile pressure dressing was applied. All needle and sponge counts were correct. The patient was transferred to the recovery room in stable condition. BRAD:andria Job ID: [id number] Doc ID: [id number] Pinky Huber MD
[2019-03-02] MEDS: 0.9 % SODIUM CHLORIDE 10 ML SYRINGE IV SCH (22:23)
[2019-03-03] MEDS: IPRATROPIUM/ALBUTEROL 3 ML AMPUL.NEB NEB SCH ×5 (03:09→19:32)
[2019-03-03] MEDS: ceFAZolin 1 GM VIAL IV SCH ×2 (03:10→11:01)
[2019-03-03] MEDS: HYDROcodone/APAP 10/325MG TABLET PO PRN ×4 (05:17→17:40)
[2019-03-03] MEDS: 0.9 % SODIUM CHLORIDE 10 ML SYRINGE IV SCH ×3 (05:19→21:04)
[2019-03-03 05:24] LABS: Hematocrit 38.3 % (36.0-48.0); Hemoglobin 12.8 g/dL (12.0-15.0); Mean Cell Volume 96.4 fL (80.0-100.0); Mean Corpuscular HGB Conc 33.4 g/dL (31.0-36.0); Mean Platelet Volume 9.2 fL (7.4-10.4); Platelet Count 201 K/mcL (140-440); RBC 3.98 M/mcL (4.00-5.20); Red Cell Distribution Width 14.3 % (11.5-14.5); WBC 8.9 K/mcL (4.5-11.0)
[2019-03-03 05:53] LABS: ALT/SGPT 19 U/l (0-40); AST/SGOT 35 U/l (0-37); Albumin 3.1 gm/dL (3.2-5.2); Albumin/Globulin Ratio 1.6 (1.0-2.3); Alkaline Phosphatase 37 U/L (39-117); Bilirubin,Direct < 0.2 mg/dL (0.0-0.3); Bilirubin,Total 0.3 mg/dL (0.0-1.0); Blood Urea Nitrogen 12 mg/dl (8-23); Calcium 8.4 mg/dl (8.6-10.4); Carbon Dioxide 27 mmol/L (22-30); Chloride 98 mmol/L (96-108); Glomerular Filtration Rate 111; Glucose 131 mg/dL (70-105); Lactate Dehydrogenase 210 U/L (94-250); Phosphorous 3.9 mg/dL (2.7-4.5); Triglycerides 40 mg/dl (<150); Uric Acid 3.7 mg/dL (2.5-8.0)
--- NOTE | 2019-03-03 06:25 | Internal Med Progress Note ---
Medical - PN: Subj Patient information: Note initiated : 03/03/19 at 6:20 am Service Date, if different from initiated Date: [] Patient: Emelia Candelaria a 63 y/o F admitted on 03/02/19 for Fall, left hip pain. Chief Complaint: [] Interval history: Ms. Candelaria is a 63 year old F with history of O2 dependent COPD, long-standing history of active smoking presents presents to ER following a fall off stairs this morning sustaining trauma to her left hip. She was brought in by EMS. She denied any precipitating events including lightheadedness chest palpitation dizziness prior to fall. She attributes the fall to getting off balance. Initial work-up was consistent with left hip fracture. Orthopedics was consu lted and hospitalist service was requested for admission and management of medical issues/preoperative risk evaluation. At the time of evaluation patient is alert and oriented. She is significantly short of breath currently on 2 L oxygen. She appears anxious. Denies chest pain, headache. Her last hospitalization was in May 11 to COPD flare. She actively smokes 1/2 to 2 pack a day. She is accompanied with her fianc. She denies diarrhea, dysuria, recent changes in medications. 03/03-patient doing well postop day 1. No overnight events. Complains of pain around the left femur operative site. Ongoing postop care per orthopedics. No overnight fever chills. Continue bronchodilators. - Constitutional Vitals: Vital Signs Temp Pulse Resp BP Pulse Ox 97.8 F 88 18 109/68 96 03/03/19 03:00 03/03/19 03:00 03/03/19 03:00 03/03/19 03:00 03/03/19 03:00 Period Temp Pulse Resp BP Sys/Tomas Pulse Ox Last 24 Hr 97 F-98.4 F 20-117 12-20 96-168/62-109 86-97 Intake and Output 03/02/19 03/03/19 03/03/19 21:59 05:59 13:59 Intake Total 1200 1400 Output Total 150 550 Balance 1050 850 Weight 100 lb Intake & Output: Intake & Output 03/02/19 03/03/19 03/03/19 21:59 05:59 13:59 Intake Total 1200 1400 Output Total 150 550 Balance 1050 850 Weight 100 lb Intake: Oral 200 1400 IV - Manual Only 1000 Output: Urine Catheter Amount 550 Estimated Blood Loss 150 Other: Meal snack Percent of Meal Consumed 100% Feeding Ability Independent Urine Appearance Clear Uretheral ([place]) Clear Urine Color Uretheral ([place]) Bright Yellow General appearance: no acute distress Exam: Alert oriented Nonlabored breathing Nondistended abdomen No significant swelling around the surgical site Medical - PN: Obj Da - Labs CBC & Chem 7: 03/03/19 04:14 03/03/19 04:14 Labs: Abnormal Lab Results 03/03/19 03/03/19 03/02/19 04:14 04:14 11:44 RBC 3.98 L Hgb Hct RDW Gran % Lymph % (Auto) Lymph # (Auto) Creatinine 0.4 L 0.5 L Glucose 131 H 111 H Calcium 8.4 L Alkaline Phosphatase 37 L Total Protein 5.1 L Albumin 3.1 L Globulin 2.0 L Urine Protein Urine Ketones Urine Urobilinogen Urine Mucus 03/02/19 03/02/19 11:44 11:32 RBC 5.29 H Hgb 16.8 H Hct 50.4 H RDW 14.8 H Gran % 88.1 H Lymph % (Auto) 7.9 L Lymph # (Auto) 0.7 L Creatinine Glucose Calcium Alkaline Phosphatase Total Protein Albumin Globulin Urine Protein 100 A Urine Ketones 5/tr A Urine Urobilinogen 2.0 A Urine Mucus Many A Meds: Medications Acetaminophen (Tylenol) 650 mg PO Q4-6HP PRN; Protocol PRN Reason: Per Pain Protocol/Fever > 101 Hydrocodone Bitart/Acetaminophen ([place] 10/325mg) 0 tab PO Q4HP PRN; Protocol PRN Reason: Per Pain Protocol Last Admin: 03/03/19 05:17 Dose: 2 tab Documented by: Albuterol/Ipratropium (Duoneb) 3 ml NEB Q4HRT [facility] Last Admin: 03/03/19 03:09 Dose: 3 ml Documented by: Aspirin (Aspirin) 81 mg PO BID [facility] Last Admin: 03/02/19 20:52 Dose: 81 mg Documented by: Bisacodyl (Dulcolax) 10 mg ID Q2-3DAYS PRN PRN Reason: Constipation Budesonide (Pulmicort) 0.5 mg NEB Q12 [facility] Last Admin: 03/02/19 20:29 Dose: 0.5 mg Documented by: Cefazolin Sodium (Ancef) 1 gm IV Q8H [facility] Stop: 03/03/19 11:01 Last Admin: 03/03/19 03:10 Dose: 1 gm Documented by: Docusate Sodium (Colace) 100 mg PO BID [facility] Last Admin: 03/02/19 20:52 Dose: 100 mg Documented by: Magnesium Sulfate (Magnesium Sulfate) 2 gm in 50 mls @ 50 mls/hr IV UD PRN PRN Reason: MG = or < 1.7 Acetaminophen (Ofirmev) 650 mg in 65 mls @ 130 mls/hr IV Q6HP PRN; Protocol PRN Reason: Per Pain Protocol/Fever > 101 Iron Carb/Multivit/Reciprocating Drill Operator/Folic Acid (Multivitamin W/Minerals) 1 tab PO DAILY [facility] Magnesium Hydroxide (Milk Of Magnesia) 30 ml PO BIDP PRN PRN Reason: Constipation Melatonin (Melatonin 3mg Tablet) 3 mg PO HSP PRN PRN Reason: Insomnia Methocarbamol (Robaxin) 750 mg PO Q6HP PRN PRN Reason: Muscle Spasm Morphine Sulfate (Morphine) 0 mg IV Q1HP PRN; Protocol PRN Reason: Per Pain Protocol Ondansetron HCl (Zofran) 4 mg IV Q4HP PRN; Protocol PRN Reason: Nausea And Vomiting Polyethylene Glycol (Miralax) 17 gm PO DAILYP PRN PRN Reason: Constipation Potassium Chloride (Klor-Con) 40 meq PO DAILYP PRN PRN Reason: K+ < 3.5 Senna (Senokot) 2 tab PO HS [facility] Last Admin: 03/02/19 20:51 Dose: 2 tab Documented by: Sodium Biphosphate/Sodium Phosphate (Fleets Adult) 1 dose ID Q3-4DAYS PRN PRN Reason: Constipation Sodium Chloride (Saline Flush) 10 ml IV Q8 [facility] Last Admin: 03/03/19 05:19 Dose: 10 ml Documented by: Medical - PN: A/P - Time Spent With Patient Total time spent is greater than 50% in coordination of care (as documented) at patient's floor/unit and/or counseling patient: 25 - 35 minutes (1) Femur fracture, left Status: Acute Assessment and plan: * Left femur fracture-postop day 1. Managed by Dr. Huber. Continue incentive spirometer use/pulmonary toilet. Continue aggressive PT OT * Pain management continue as needed opioids * History of COPD-continue bronchodilators * History of long-standing tobacco dependence with over 100 pack history of smoking. Discussed smoking cessation. * History of DJD/osteoporosis. Stable * Pulmonary hypertension secondary to underlying COPD. * Full code * DVT prophylaxis on aspirin 81 twice daily as per orthopedics Plan * Continue PT OT/bronchodilators/pulmonary toilet * Postop care per orthopedics * nutrition support * Prior medical condition management and home meds * Nicotine patch Current Visit: Yes Medical - PN: Qual - VTE Deep Vein Thrombosis/Pulmonary Embolism Present on Admission: No
[2019-03-03 06:40] LABS: Lymphocytes % 2 % (15-49); Monocytes % (Manual) 11 % (1-12); Platelet Estimate NORMAL (NORMAL); RBC Morphology NORMAL (NORMAL); Segmented Neutrophils % 87 % (38-78)
[2019-03-03] MEDS: BUDESONIDE 0.5 MG/2 ML AMPUL.NEB NEB SCH ×2 (08:09→19:32)
[2019-03-03] MEDS: MULTIVIT,THER IRON,CA,FA & MIN 1 TABLET PO SCH (08:57)
[2019-03-03] MEDS: ASPIRIN 81 MG TAB.CHEW PO SCH ×2 (08:57→21:03)
[2019-03-03] MEDS ORDERED: MULTIVIT,THER IRON,CA,FA & MIN 1 TABLET PO SCH (09:00)
[2019-03-03] MEDS: DOCUSATE SODIUM 100 MG CAPSULE PO SCH ×2 (09:01→21:03)
[2019-03-03] MEDS: NICOTINE 21 MG PATCH TOPICAL SCH (09:58)
[2019-03-03] MEDS ORDERED: FLU VACC QS2019-20(6MOS UP)/PF 60 MCG/0.5 ML SYRINGE IM ONE (10:00)
--- NOTE | 2019-03-03 11:18 | Internal Med Progress Note ---
Medical - PN: Subj Patient information: Note initiated : 03/03/19 at 11:15 am Service Date, if different from initiated Date: [] Patient: Emelia Candelaria a 63 y/o F admitted on 03/02/19 for Fall, left hip pain. Chief Complaint: [] Interval history: Ms. Candelaria is a 63 year old F with history of O2 dependent COPD, long-standing history of active smoking presents presents to ER following a fall off stairs this morning sustaining trauma to her left hip. She was brought in by EMS. She denied any precipitating events including lightheadedness chest palpitation dizziness prior to fall. She attributes the fall to getting off balance. Initial work-up was consistent with left hip fracture. Orthopedics was cons ulted and hospitalist service was requested for admission and management of medical issues/preoperative risk evaluation. At the time of evaluation patient is alert and oriented. She is significantly short of breath currently on 2 L oxygen. She appears anxious. Denies chest pain, headache. Her last hospitalization was in May 11 to COPD flare. She actively smokes 1/2 to 2 pack a day. She is accompanied with her fianc. She denies diarrhea, dysuria, recent changes in medications. 03/03-patient doing well postop day 1. No overnight events. Complains of pain around the left femur operative site. Ongoing postop care per orthopedics. No overnight fever chills. Continue bronchodilators. - Constitutional Vitals: Vital Signs Temp Pulse Resp BP Pulse Ox 98.0 F 100 H 18 97/66 86 L 03/03/19 07:00 03/03/19 08:28 03/03/19 08:28 03/03/19 07:00 03/03/19 08:29 Period Temp Pulse Resp BP Sys/Tomas Pulse Ox Last 24 Hr 97 F-98.4 F 20-117 12-20 96-168/62-109 86-97 Intake and Output 03/02/19 03/03/19 03/03/19 21:59 05:59 13:59 Intake Total 1200 1400 Output Total 150 550 Balance 1050 850 Weight 45.359 kg Intake & Output: Intake & Output 03/02/19 03/03/19 03/03/19 21:59 05:59 13:59 Intake Total 1200 1400 Output Total 150 550 Balance 1050 850 Weight 45.359 kg Intake: Oral 200 1400 IV - Manual Only 1000 Output: Urine Catheter Amount 550 Estimated Blood Loss 150 Other: Meal snack Percent of Meal Consumed 100% Feeding Ability Independent Urine Appearance Clear Uretheral (Hanley) Clear Clear Urine Color Uretheral ([place]) Bright Yellow Bright Yellow Exam: General: Alert, Awake, No acute Distress Eyes/N/T: EOMI, Head/Neck: neck supple, CV: RRR, No murmurs, Pulm: Clear b/l, no wheezing/rhonchi/rales Abd: soft, nontender, +BS x4 Ext: no clubbing/cyanosis/edema Neuro: Alert, no focal deficits, moves all extremities, Skin: warm/dry Medical - PN: Obj Da - Labs CBC & Chem 7: 03/03/19 04:14 03/03/19 04:14 Labs: Abnormal Lab Results 03/03/19 03/03/19 03/02/19 04:14 04:14 11:44 RBC 3.98 L Hgb Hct RDW Gran % Lymph % (Auto) Lymph # (Auto) Seg Neutrophils % 87 H Lymphocytes % 2 L Creatinine 0.4 L 0.5 L Glucose 131 H 111 H Calcium 8.4 L Alkaline Phosphatase 37 L Total Protein 5.1 L Albumin 3.1 L Globulin 2.0 L Urine Protein Urine Ketones Urine Urobilinogen Urine Mucus 03/02/19 03/02/19 11:44 11:32 RBC 5.29 H Hgb 16.8 H Hct 50.4 H RDW 14.8 H Gran % 88.1 H Lymph % (Auto) 7.9 L Lymph # (Auto) 0.7 L Seg Neutrophils % Lymphocytes % Creatinine Glucose Calcium Alkaline Phosphatase Total Protein Albumin Globulin Urine Protein 100 A Urine Ketones 5/tr A Urine Urobilinogen 2.0 A Urine Mucus Many A Meds: Medications Acetaminophen (Tylenol) 650 mg PO Q4-6HP PRN; Protocol PRN Reason: Per Pain Protocol/Fever > 101 Hydrocodone Bitart/Acetaminophen ([place] 10/325mg) 0 tab PO Q4HP PRN; Protocol PRN Reason: Per Pain Protocol Last Admin: 03/03/19 08:57 Dose: 2 tab Documented by: Albuterol/Ipratropium (Duoneb) 3 ml NEB Q6HRT [facility] Aspirin (Aspirin) 81 mg PO BID [facility] Last Admin: 03/03/19 08:57 Dose: 81 mg Documented by: Bisacodyl (Dulcolax) 10 mg AR Q2-3DAYS PRN PRN Reason: Constipation Budesonide (Pulmicort) 0.5 mg NEB Q12 [facility] Last Admin: 03/03/19 08:09 Dose: 0.5 mg Documented by: Docusate Sodium (Colace) 100 mg PO BID [facility] Last Admin: 03/03/19 09:01 Dose: Not Given Documented by: Magnesium Sulfate (Magnesium Sulfate) 2 gm in 50 mls @ 50 mls/hr IV UD PRN PRN Reason: MG = or < 1.7 Acetaminophen (Ofirmev) 650 mg in 65 mls @ 130 mls/hr IV Q6HP PRN; Protocol PRN Reason: Per Pain Protocol/Fever > 101 Iron Carb/Multivit/[place]/Folic Acid (Multivitamin W/Minerals) 1 tab PO DAILY [facility] Last Admin: 03/03/19 08:57 Dose: 1 tab Documented by: Magnesium Hydroxide (Milk Of Magnesia) 30 ml PO BIDP PRN PRN Reason: Constipation Melatonin (Melatonin 3mg Tablet) 3 mg PO HSP PRN PRN Reason: Insomnia Methocarbamol (Robaxin) 750 mg PO Q6HP PRN PRN Reason: Muscle Spasm Morphine Sulfate (Morphine) 0 mg IV Q1HP PRN; Protocol PRN Reason: Per Pain Protocol Nicotine (Nicoderm) 21 mg TOPICAL DAILY@1000 [facility] Last Admin: 03/03/19 09:58 Dose: 21 mg Documented by: Ondansetron HCl (Zofran) 4 mg IV Q4HP PRN; Protocol PRN Reason: Nausea And Vomiting Last Admin: 03/03/19 11:08 Dose: 4 mg Documented by: Polyethylene Glycol (Miralax) 17 gm PO DAILYP PRN PRN Reason: Constipation Potassium Chloride (Klor-Con) 40 meq PO DAILYP PRN PRN Reason: K+ < 3.5 Senna (Senokot) 2 tab PO HS [facility] Last Admin: 03/02/19 20:51 Dose: 2 tab Documented by: Sodium Biphosphate/Sodium Phosphate (Fleets Adult) 1 dose AR Q3-4DAYS PRN PRN Reason: Constipation Sodium Chloride (Saline Flush) 10 ml IV Q8 [facility] Last Admin: 03/03/19 05:19 Dose: 10 ml Documented by: Medical - PN: A/P - Time Spent With Patient Total time spent is greater than 50% in coordination of care (as documented) at patient's floor/unit and/or counseling patient: - Narrative A/P Narrative: A: *Left femur fracture: s/p ORIF (03/02) Managed by Dr. Huber. *Pain management continue as needed opioids *COPD ( )/Pulm HTN: *Tobacco abuse: *EtOH abuse: *History of DJD/osteoporosis. Stable Plan -Ortho per Dr. Huber -IS -Continue PT OT/bronchodilators/pulmonary toilet -nutrition support -Nicotine patch, Discussed smoking cessation. -ppx: per ortho ASA 81 bid full code Medical - PN: Qual - VTE Deep Vein Thrombosis/Pulmonary Embolism Present on Admission: No
--- NOTE | 2019-03-03 18:17 | Orthopedic Progress Note ---
Subjective Patient information: Note initiated : 03/03/19 at 6:14 pm Service Date, if different from initiated Date: [] Patient: Emelia Candelaria 63 y/o F admitted on 03/02/19 for Fall, left hip pain. Chief Complaint: [] Interval history: doing well today. painful but mobilizing slowly Objective Vital signs: Vital Signs Temp Pulse Pulse Pulse Resp BP Pulse Ox 03/03/19 15:00 98.6 F 95 H 18 104/68 97 03/03/19 11:00 98.2 F 100 H 18 101/60 92 03/03/19 08:29 86 L 03/03/19 08:28 100 H 18 91 03/03/19 08:11 100 H 18 03/03/19 07:45 97 H 18 93 03/03/19 07:00 98.0 F 102 H 18 97/66 93 03/03/19 03:00 97.8 F 88 18 109/68 96 03/02/19 22:38 97.5 F 110 H 20 115/72 93 03/02/19 21:34 97.2 F 110 H 20 110/64 94 03/02/19 20:53 113 H 18 93 03/02/19 20:34 97.3 F 115 H 20 111/70 92 03/02/19 20:33 117 H 18 03/02/19 20:03 97.1 F 115 H 20 115/78 93 03/02/19 20:00 107 H 18 93 03/02/19 19:33 97.5 F 111 H 20 116/81 94 03/02/19 19:18 97.5 F 110 H 20 127/82 03/02/19 19:03 97.5 F 20 L 20 134/84 03/02/19 18:48 97.3 F 103 H 20 141/91 93 03/02/19 18:35 97.5 F 111 H 20 134/81 94 03/02/19 18:25 107 H 12 164/97 97 03/02/19 18:15 108 H 15 145/109 97 Intake and Output 03/03/19 03/03/19 03/03/19 05:59 13:59 21:59 Intake Total 1400 275 240 Output Total 550 Balance 850 275 240 Intake: Oral 1400 275 240 Output: Urine Catheter Amount 550 Other: Meal snack Breakfast Percent of Meal Consumed 100% 100% Feeding Ability Independent Urine Appearance Uretheral ([place]) Clear Urine Color Uretheral ([place]) Bright Yellow Weight 100 lb Patient Weight 03/04/19 05:59 Weight 100 lb Intake & Output: Intake & Output 03/03/19 03/03/19 03/03/19 05:59 13:59 21:59 Intake Total 1400 275 240 Output Total 550 Balance 850 275 240 Weight 100 lb Intake: Oral 1400 275 240 Output: Urine Catheter Amount 550 Other: Meal snack Breakfast Percent of Meal Consumed 100% 100% Feeding Ability Independent Urine Appearance Uretheral ([place]) Clear Urine Color Uretheral ([place]) Bright Yellow Incision: Yes healing Incision clean and dry: Yes Dressing: Yes clean, Yes dry, Yes intact Weight bearing status: partial Neurological exam IM: Yes abnormal gait, Yes alert, Yes oriented X3, Yes motor sensory intact, Yes neurovascular intact Extremities exam IM: No calf tenderness, Yes Foot pink and warm, Yes neurovascular intact - Labs CBC & BMP: 03/03/19 04:14 03/03/19 04:14 Labs: 03/03/19 03/02/19 04:14 11:44 Hgb 12.8 16.8 H Hct 38.3 50.4 H Assessment and Plan (1) Femur fracture, left pod 1 s/p imn left femur 50%weight bearing pain control dvt prophylaxis d/c planning - likely rehab wednesday Status: Acute Qualifiers: Encounter type: initial encounter Femur location: shaft Fracture type: closed Fracture morphology: spiral Fracture alignment: displaced Qualified Code(s): S72.342A - Displaced spiral fracture of shaft of left femur, initial encounter for closed fracture
--- NOTE | 2019-03-03 18:19 | Discharge Summary ---
Ortho Discharge Plan - General - Patient Instructions Diet: Regular Diet Activity: partial weight bearing (50 %) Dressing Care: May shower in 2 days - Problem Maintenance (1) Femur fracture, left Status: Acute Qualifiers: Encounter type: initial encounter Femur location: shaft Fracture type: closed Fracture morphology: spiral Fracture alignment: displaced Qualified Code(s): S72.342A - Displaced spiral fracture of shaft of left femur, initial encounter for closed fracture - Follow Up Plan Follow Up Appointments: Isaias Viveros MD [Primary Care Provider] - Disposition: Xfer SNF Prognosis: Good Rehab Potential: Good I certify that the patient requires SNF services: Yes Overall status at discharge: patient is progressing back to baseline
[2019-03-03] MEDS: SENNOSIDES 1 TABLET PO SCH (21:03)
[2019-03-04] MEDS: IPRATROPIUM/ALBUTEROL 3 ML AMPUL.NEB NEB SCH ×4 (00:32→19:04)
[2019-03-04] MEDS: HYDROcodone/APAP 10/325MG TABLET PO PRN ×4 (00:37→20:52)
[2019-03-04] MEDS: 0.9 % SODIUM CHLORIDE 10 ML SYRINGE IV SCH ×3 (04:05→23:00)
[2019-03-04 06:02] LABS: Hematocrit 33.1 % (36.0-48.0); Hemoglobin 11.1 g/dL (12.0-15.0); Mean Cell Volume 96.6 fL (80.0-100.0); Mean Corpuscular HGB Conc 33.4 g/dL (31.0-36.0); Mean Platelet Volume 9.4 fL (7.4-10.4); Platelet Count 152 K/mcL (140-440); RBC 3.43 M/mcL (4.00-5.20); Red Cell Distribution Width 13.9 % (11.5-14.5); WBC 7.6 K/mcL (4.5-11.0)
[2019-03-04 06:03] LABS: ALT/SGPT 16 U/l (0-40); AST/SGOT 36 U/l (0-37); Albumin 3.1 gm/dL (3.2-5.2); Albumin/Globulin Ratio 1.6 (1.0-2.3); Alkaline Phosphatase 46 U/L (39-117); Bilirubin,Direct < 0.2 mg/dL (0.0-0.3); Bilirubin,Total 0.2 mg/dL (0.0-1.0); Blood Urea Nitrogen 14 mg/dl (8-23); Calcium 8.5 mg/dl (8.6-10.4); Carbon Dioxide 31 mmol/L (22-30); Chloride 98 mmol/L (96-108); Globulin 1.9 gm/dL (2.2-3.7); Glomerular Filtration Rate 111; Glucose 111 mg/dL (70-105); Lactate Dehydrogenase 181 U/L (94-250); Triglycerides 68 mg/dl (<150); Uric Acid 3.7 mg/dL (2.5-8.0)
[2019-03-04] MEDS: BUDESONIDE 0.5 MG/2 ML AMPUL.NEB NEB SCH ×2 (07:20→19:04)
[2019-03-04 08:05] LABS: Band Neutrophils % 2 % (0-10); Eosinophils % (Manual) 1 % (0-7); Lymphocytes % 21 % (15-49); Monocytes % (Manual) 8 % (1-12); Platelet Estimate NORMAL (NORMAL); RBC Morphology NORMAL (NORMAL); Segmented Neutrophils % 68 % (38-78)
--- NOTE | 2019-03-04 08:41 | Internal Med Progress Note ---
Medical - PN: Subj Patient information: Note initiated : 03/04/19 at 8:39 am Service Date, if different from initiated Date: [] Patient: Emelia Candelaria a 63 y/o F admitted on 03/02/19 for Fall, left hip pain. Chief Complaint: [] Interval history: Ms. Candelaria is a 63 year old F with history of O2 dependent COPD, long-standing history of active smoking presents presents to ER following a fall off stairs this morning sustaining trauma to her left hip. She was brought in by EMS. She denied any precipitating events including lightheadedness chest palpitation dizziness prior to fall. She attributes the fall to getting off balance. Initial work-up was consistent with left hip fracture. Orthopedics was consu lted and hospitalist service was requested for admission and management of medical issues/preoperative risk evaluation. At the time of evaluation patient is alert and oriented. She is significantly short of breath currently on 2 L oxygen. She appears anxious. Denies chest pain, headache. Her last hospitalization was in May 11 to COPD flare. She actively smokes 1/2 to 2 pack a day. She is accompanied with her fianc. She denies diarrhea, dysuria, recent changes in medications. 03/03-patient doing well postop day 1. No overnight events. Complains of pain around the left femur operative site. Ongoing postop care per orthopedics. No overnight fever chills. Continue bronchodilators. 03/04 No overnight events. Patient doing well. No new complaints. Review of Systems: denies headache/fever/chills/nausea/vomiting/chest or abdominal pain/cough/dyspnea/diarrhea. Otherwise see above. - Constitutional Vitals: Vital Signs Temp Pulse Resp BP Pulse Ox 98.8 F 78 16 104/68 94 03/04/19 04:00 03/04/19 07:31 03/04/19 07:31 03/04/19 04:00 03/04/19 07:21 Period Temp Pulse Resp BP Sys/Tomas Pulse Ox Last 24 Hr 97.8 F-98.8 F 78-100 16-20 101-124/60-76 92-97 Intake and Output 03/03/19 03/04/19 03/04/19 21:59 05:59 13:59 Intake Total 960 0 Output Total 1400 200 Balance 960 -1400 -200 Weight 46.947 kg Intake & Output: Intake & Output 03/03/19 03/04/19 03/04/19 21:59 05:59 13:59 Intake Total 960 0 Output Total 1400 200 Balance 960 -1400 -200 Weight 46.947 kg Intake: Oral 960 0 Output: Urine Catheter Amount 1400 200 Other: Meal Dinner Percent of Meal Consumed 100% Feeding Ability Independent Urine Appearance Clear Clear Urine Color Light Gisela Light Gisela Exam: General: Alert, Awake, No acute Distress Eyes/N/T: EOMI, Head/Neck: neck supple, CV: RRR, No murmurs, Pulm: Clear b/l, no wheezing/rhonchi/rales Abd: soft, nontender, +BS x4 Ext: no clubbing/cyanosis/edema Neuro: Alert, no focal deficits, moves all extremities, Skin: warm/dry Medical - PN: Obj Da - Labs CBC & Chem 7: 03/04/19 04:45 03/04/19 04:45 Labs: Abnormal Lab Results 03/04/19 03/04/19 03/03/19 04:45 04:45 04:14 RBC 3.43 L Hgb 11.1 L Hct 33.1 L RDW Gran % Lymph % (Auto) Lymph # (Auto) Seg Neutrophils % Lymphocytes % Carbon Dioxide 31 H Creatinine 0.4 L 0.4 L Glucose 111 H 131 H Calcium 8.5 L 8.4 L Alkaline Phosphatase 37 L Total Protein 5.0 L 5.1 L Albumin 3.1 L 3.1 L Globulin 1.9 L 2.0 L Urine Protein Urine Ketones Urine Urobilinogen Urine Mucus 03/03/19 03/02/19 03/02/19 04:14 11:44 11:44 RBC 3.98 L 5.29 H Hgb 16.8 H Hct 50.4 H RDW 14.8 H Gran % 88.1 H Lymph % (Auto) 7.9 L Lymph # (Auto) 0.7 L Seg Neutrophils % 87 H Lymphocytes % 2 L Carbon Dioxide Creatinine 0.5 L Glucose 111 H Calcium Alkaline Phosphatase Total Protein Albumin Globulin Urine Protein Urine Ketones Urine Urobilinogen Urine Mucus 03/02/19 11:32 RBC Hgb Hct RDW Gran % Lymph % (Auto) Lymph # (Auto) Seg Neutrophils % Lymphocytes % Carbon Dioxide Creatinine Glucose Calcium Alkaline Phosphatase Total Protein Albumin Globulin Urine Protein 100 A Urine Ketones 5/tr A Urine Urobilinogen 2.0 A Urine Mucus Many A Meds: Medications Acetaminophen (Tylenol) 650 mg PO Q4-6HP PRN; Protocol PRN Reason: Per Pain Protocol/Fever > 101 Hydrocodone Bitart/Acetaminophen ([place] 10/325mg) 0 tab PO Q4HP PRN; Protocol PRN Reason: Per Pain Protocol Last Admin: 03/04/19 00:37 Dose: 2 tab Documented by: Albuterol/Ipratropium (Duoneb) 3 ml NEB Q6HRT [facility] Last Admin: 03/04/19 07:20 Dose: 3 ml Documented by: Aspirin (Aspirin) 81 mg PO BID [facility] Last Admin: 03/03/19 21:03 Dose: 81 mg Documented by: Bisacodyl (Dulcolax) 10 mg CO Q2-3DAYS PRN PRN Reason: Constipation Budesonide (Pulmicort) 0.5 mg NEB Q12 [facility] Last Admin: 03/04/19 07:20 Dose: 0.5 mg Documented by: Docusate Sodium (Colace) 100 mg PO BID [facility] Last Admin: 03/03/19 21:03 Dose: Not Given Documented by: Magnesium Sulfate (Magnesium Sulfate) 2 gm in 50 mls @ 50 mls/hr IV UD PRN PRN Reason: MG = or < 1.7 Acetaminophen (Ofirmev) 650 mg in 65 mls @ 130 mls/hr IV Q6HP PRN; Protocol PRN Reason: Per Pain Protocol/Fever > 101 Iron Carb/Multivit/[place]/Folic Acid (Multivitamin W/Minerals) 1 tab PO DAILY [facility] Last Admin: 03/03/19 08:57 Dose: 1 tab Documented by: Magnesium Hydroxide (Milk Of Magnesia) 30 ml PO BIDP PRN PRN Reason: Constipation Melatonin (Melatonin 3mg Tablet) 3 mg PO HSP PRN PRN Reason: Insomnia Methocarbamol (Robaxin) 750 mg PO Q6HP PRN PRN Reason: Muscle Spasm Morphine Sulfate (Morphine) 0 mg IV Q1HP PRN; Protocol PRN Reason: Per Pain Protocol Nicotine (Nicoderm) 21 mg TOPICAL DAILY@1000 [facility] Last Admin: 03/03/19 09:58 Dose: 21 mg Documented by: Ondansetron HCl (Zofran) 4 mg IV Q4HP PRN; Protocol PRN Reason: Nausea And Vomiting Last Admin: 03/03/19 11:08 Dose: 4 mg Documented by: Polyethylene Glycol (Miralax) 17 gm PO DAILYP PRN PRN Reason: Constipation Potassium Chloride (Klor-Con) 40 meq PO DAILYP PRN PRN Reason: K+ < 3.5 Senna (Senokot) 2 tab PO HS [facility] Last Admin: 03/03/19 21:03 Dose: Not Given Documented by: Sodium Biphosphate/Sodium Phosphate (Fleets Adult) 1 dose CO Q3-4DAYS PRN PRN Reason: Constipation Sodium Chloride (Saline Flush) 10 ml IV Q8 [facility] Last Admin: 03/04/19 04:05 Dose: 10 ml Documented by: Medical - PN: A/P - Time Spent With Patient Total time spent is greater than 50% in coordination of care (as documented) at patient's floor/unit and/or counseling patient: - Narrative A/P Narrative: A: *Left femur fracture: s/p ORIF (03/02) Managed by Dr. Huber. *Pain management continue as needed opioids *COPD (uses home O2 prn 4-5x's/week)/Pulm HTN: *Tobacco abuse: *EtOH abuse: *History of DJD/osteoporosis. Stable Plan -Ortho per Dr. Huber -IS -Continue PT OT/bronchodilators/pulmonary toilet -nutrition support -Nicotine patch, Discussed smoking cessation -ppx: per ortho ASA 81 bid full code Medical - PN: Qual - VTE Deep Vein Thrombosis/Pulmonary Embolism Present on Admission: No
[2019-03-04] MEDS: ASPIRIN 81 MG TAB.CHEW PO SCH ×2 (09:57→20:52)
[2019-03-04] MEDS: MULTIVIT,THER IRON,CA,FA & MIN 1 TABLET PO SCH (09:57)
[2019-03-04] MEDS: NICOTINE 21 MG PATCH TOPICAL SCH (09:59)
[2019-03-04] MEDS: DOCUSATE SODIUM 100 MG CAPSULE PO SCH ×2 (10:11→20:54)
--- NOTE | 2019-03-04 13:22 | Orthopedic Progress Note ---
Subjective Patient information: Note initiated : 03/04/19 at 1:21 pm Service Date, if different from initiated Date: [] Patient: Emelia Candelaria 63 y/o F admitted on 03/02/19 for Fall, left hip pain. Chief Complaint: [] Interval history: doing well. starting to mobilize Objective Vital signs: Vital Signs Temp Pulse Pulse Resp BP Pulse Ox 03/04/19 11:58 98.4 F 83 20 110/75 91 03/04/19 08:00 98.0 F 89 20 117/77 92 03/04/19 07:31 78 16 03/04/19 07:21 94 03/04/19 07:20 94 03/04/19 04:00 98.8 F 93 H 20 104/68 95 03/04/19 00:44 91 H 20 03/04/19 00:00 98.8 F 91 H 20 123/76 94 03/03/19 19:34 80 18 96 03/03/19 19:00 97.8 F 82 18 124/63 92 03/03/19 15:00 98.6 F 95 H 18 104/68 97 Intake and Output 03/03/19 03/04/19 03/04/19 21:59 05:59 13:59 Intake Total 960 0 Output Total 1400 200 Balance 960 -1400 -200 Intake: Oral 960 0 Output: Urine Catheter Amount 1400 200 Other: Meal Dinner Percent of Meal Consumed 100% Feeding Ability Independent Urine Appearance Clear Clear Urine Color Light Gisela Light Gisela # Voids 1 Weight 103 lb 8 oz Intake & Output: Intake & Output 03/03/19 03/04/19 03/04/19 21:59 05:59 13:59 Intake Total 960 0 Output Total 1400 200 Balance 960 -1400 -200 Weight 103 lb 8 oz Intake: Oral 960 0 Output: Urine Catheter Amount 1400 200 Other: Meal Dinner Percent of Meal Consumed 100% Feeding Ability Independent Urine Appearance Clear Clear Urine Color Light Gisela Light Gisela # Voids 1 Incision: Yes healing Incision clean and dry: Yes Dressing: Yes clean, Yes dry, Yes intact Weight bearing status: partial Neurological exam IM: Yes abnormal gait, Yes alert, Yes oriented X3, Yes motor sensory intact, Yes neurovascular intact Extremities exam IM: No calf tenderness, Yes Foot pink and warm, Yes neurovascular intact - Labs CBC & BMP: 03/04/19 04:45 03/04/19 04:45 Labs: 03/04/19 03/03/19 03/02/19 04:45 04:14 11:44 Hgb 11.1 L 12.8 16.8 H Hct 33.1 L 38.3 50.4 H Assessment and Plan (1) Femur fracture, left pod 2 s/p imn left femur 50%weight bearing pain control dvt prophylaxis d/c planning - likely rehab wednesday Status: Acute Qualifiers: Encounter type: initial encounter Femur location: shaft Fracture type: closed Fracture morphology: spiral Fracture alignment: displaced Qualified Code(s): S72.342A - Displaced spiral fracture of shaft of left femur, initial encounter for closed fracture
[2019-03-04] MEDS: SENNOSIDES 1 TABLET PO SCH (20:54)
[2019-03-05] MEDS: IPRATROPIUM/ALBUTEROL 3 ML AMPUL.NEB NEB SCH ×4 (00:53→19:15)
[2019-03-05] MEDS: HYDROcodone/APAP 10/325MG TABLET PO PRN ×5 (03:54→22:08)
[2019-03-05 05:50] LABS: Hematocrit 29.7 % (36.0-48.0); Mean Cell Volume 96.4 fL (80.0-100.0); Mean Corpuscular HGB Conc 33.7 g/dL (31.0-36.0); Mean Platelet Volume 9.1 fL (7.4-10.4); Platelet Count 159 K/mcL (140-440); RBC 3.08 M/mcL (4.00-5.20); Red Cell Distribution Width 14.4 % (11.5-14.5); WBC 6.8 K/mcL (4.5-11.0)
[2019-03-05] MEDS: 0.9 % SODIUM CHLORIDE 10 ML SYRINGE IV SCH ×3 (06:12→22:09)
[2019-03-05 06:26] LABS: ALT/SGPT 18 U/l (0-40); AST/SGOT 38 U/l (0-37); Albumin 3.1 gm/dL (3.2-5.2); Albumin/Globulin Ratio 1.6 (1.0-2.3); Alkaline Phosphatase 45 U/L (39-117); Bilirubin,Direct < 0.2 mg/dL (0.0-0.3); Bilirubin,Total 0.2 mg/dL (0.0-1.0); Blood Urea Nitrogen 15 mg/dl (8-23); Calcium 8.5 mg/dl (8.6-10.4); Carbon Dioxide 31 mmol/L (22-30); Chloride 99 mmol/L (96-108); Glomerular Filtration Rate 103; Glucose 108 mg/dL (70-105); Lactate Dehydrogenase 247 U/L (94-250); Phosphorous 2.6 mg/dL (2.7-4.5); Triglycerides 51 mg/dl (<150); Uric Acid 2.9 mg/dL (2.5-8.0)
[2019-03-05 07:18] LABS: Lymphocytes % 22 % (15-49); Monocytes % (Manual) 14 % (1-12); Platelet Estimate NORMAL (NORMAL); RBC Morphology NORMAL (NORMAL); Segmented Neutrophils % 64 % (38-78)
--- NOTE | 2019-03-05 08:17 | Orthopedic Progress Note ---
Subjective Patient information: Note initiated : 03/05/19 at 8:15 am Service Date, if different from initiated Date: [] Patient: Emelia Candelaria 63 y/o F admitted on 03/02/19 for Fall, left hip pain. Chief Complaint: [POD #3 s/p left IM hip nailing Patient doing well, no significant pain. Denies numbness, tingling or calf pain.] Objective Vital signs: Vital Signs Temp Pulse Pulse Resp BP Pulse Ox 03/05/19 03:49 98.1 F 88 16 116/71 94 03/05/19 00:53 89 16 03/05/19 00:30 97.9 F 92 H 14 101/66 93 03/04/19 20:40 98.6 F 96 H 16 112/62 93 03/04/19 19:05 101 H 18 03/04/19 15:43 99.0 F 89 20 112/73 95 03/04/19 13:31 96 H 16 03/04/19 11:58 98.4 F 83 20 110/75 91 Intake and Output 03/04/19 03/05/19 03/05/19 21:59 05:59 13:59 Intake Total 240 675 Output Total 375 525 50 Balance -135 150 -50 Intake: Oral 240 675 Output: Void Amount 375 525 50 Other: Meal Pie Percent of Meal Consumed 75% Feeding Ability Independent Urine Appearance Clear Urine Color Dark Yellow Dark Yellow Dark Yellow Urine Odor Strong # Voids 1 Intake & Output: Intake & Output 03/04/19 03/05/19 03/05/19 21:59 05:59 13:59 Intake Total 240 675 Output Total 375 525 50 Balance -135 150 -50 Intake: Oral 240 675 Output: Void Amount 375 525 50 Other: Meal Pie Percent of Meal Consumed 75% Feeding Ability Independent Urine Appearance Clear Urine Color Dark Yellow Dark Yellow Dark Yellow Urine Odor Strong # Voids 1 Incision: Yes healing, No draining, No red, No swollen, No inflamed, Yes clean and dry Incision clean and dry: Yes Dressing: Yes clean, Yes dry, Yes intact Weight bearing status: partial Neurological exam IM: Yes alert, Yes oriented X3, Yes motor sensory intact, Yes neurovascular intact Extremities exam IM: No calf tenderness, Yes Foot pink and warm, Yes neurovascular intact - [place]hal Pulses Peripheral pulses: 2+: dorsalis pedis (L), dorsalis pedis (R), posterior tibialis (L), posterior tibialis (R) - Labs CBC & BMP: 03/05/19 04:55 03/05/19 04:55 Labs: 03/05/19 03/04/19 03/03/19 04:55 04:45 04:14 Hgb 10.0 L 11.1 L 12.8 Hct 29.7 L 33.1 L 38.3 03/02/19 11:44 Hgb 16.8 H Hct 50.4 H Assessment and Plan (1) Femur fracture, left POD #3 s/p left IM hip nailing: -d/c to SNF tomorrow -50% WB -jocelyn: no aquacel as patient has silver allergy -ASA 81mg for DVT prophylaxis -f/u in 10-14 days for PO Status: Acute Qualifiers: Encounter type: initial encounter Femur location: shaft Fracture type: closed Fracture morphology: spiral Fracture alignment: displaced Qualified Code(s): S72.342A - Displaced spiral fracture of shaft of left femur, initial encounter for closed fracture
[2019-03-05] MEDS: MULTIVIT,THER IRON,CA,FA & MIN 1 TABLET PO SCH (08:32)
[2019-03-05] MEDS: DOCUSATE SODIUM 100 MG CAPSULE PO SCH ×2 (08:32→20:56)
[2019-03-05] MEDS: ASPIRIN 81 MG TAB.CHEW PO SCH ×2 (08:32→22:08)
--- NOTE | 2019-03-05 08:34 | Internal Med Progress Note ---
Medical - PN: Subj Patient information: Note initiated : 03/05/19 at 8:33 am Service Date, if different from initiated Date: [] Patient: Emelia Candelaria a 63 y/o F admitted on 03/02/19 for Fall, left hip pain. Chief Complaint: [] Interval history: Ms. Candelaria is a 63 year old F with history of O2 dependent COPD, long-standing history of active smoking presents presents to ER following a fall off stairs this morning sustaining trauma to her left hip. She was brought in by EMS. She denied any precipitating events including lightheadedness chest palpitation dizziness prior to fall. She attributes the fall to getting off balance. Initial work-up was consistent with left hip fracture. Orthopedics was consu lted and hospitalist service was requested for admission and management of medical issues/preoperative risk evaluation. At the time of evaluation patient is alert and oriented. She is significantly short of breath currently on 2 L oxygen. She appears anxious. Denies chest pain, headache. Her last hospitalization was in May 11 to COPD flare. She actively smokes 1/2 to 2 pack a day. She is accompanied with her fianc. She denies diarrhea, dysuria, recent changes in medications. 03/03-patient doing well postop day 1. No overnight events. Complains of pain around the left femur operative site. Ongoing postop care per orthopedics. No overnight fever chills. Continue bronchodilators. 03/04 No overnight events. Patient doing well. No new complaints. 03/05 Seems to be doing well. No new complaints. Walking physical therapy. Oxygenating on room air. Likely to rehab tomorrow Review of Systems: denies headache/fever/chills/nausea/vomiting/chest or abdominal pain/cough/ dyspnea/diarrhea. Otherwise see above. - Constitutional Vitals: Vital Signs Temp Pulse Resp BP Pulse Ox 98.1 F 88 16 116/71 94 03/05/19 03:49 03/05/19 03:49 03/05/19 03:49 03/05/19 03:49 03/05/19 03:49 Period Temp Pulse Resp BP Sys/Tomas Pulse Ox Last 24 Hr 97.9 F-99.0 F 83-101 14-20 101-116/62-75 91-95 Intake and Output 03/04/19 03/05/19 03/05/19 21:59 05:59 13:59 Intake Total 240 675 Output Total 375 525 50 Balance -135 150 -50 Intake & Output: Intake & Output 03/04/19 03/05/19 03/05/19 21:59 05:59 13:59 Intake Total 240 675 Output Total 375 525 50 Balance -135 150 -50 Intake: Oral 240 675 Output: Void Amount 375 525 50 Other: Meal Pie Percent of Meal Consumed 75% Feeding Ability Independent Urine Appearance Clear Urine Color Dark Yellow Dark Yellow Dark Yellow Urine Odor Strong # Voids 1 Exam: General: Alert, Awake, No acute Distress Eyes/N/T: EOMI, Head/Neck: neck supple, CV: RRR, No murmurs, Pulm: Clear b/l, no wheezing/rhonchi/rales Abd: soft, nontender, +BS x4 Ext: no clubbing/cyanosis/edema Neuro: Alert, no focal deficits, moves all extremities, Skin: warm/dry Medical - PN: Obj Da - Labs CBC & Chem 7: 03/05/19 04:55 03/05/19 04:55 Labs: Abnormal Lab Results 03/05/19 03/05/19 03/04/19 04:55 04:55 04:45 RBC 3.08 L Hgb 10.0 L Hct 29.7 L RDW Gran % Lymph % (Auto) Lymph # (Auto) Seg Neutrophils % Lymphocytes % Monocytes % (Manual) 14 H Carbon Dioxide 31 H 31 H Anion Gap 7.0 L Creatinine 0.5 L 0.4 L Glucose 108 H 111 H Calcium 8.5 L 8.5 L Phosphorus 2.6 L AST 38 H Alkaline Phosphatase Total Protein 5.1 L 5.0 L Albumin 3.1 L 3.1 L Globulin 2.0 L 1.9 L Urine Protein Urine Ketones Urine Urobilinogen Urine Mucus 03/04/19 03/03/19 03/03/19 04:45 04:14 04:14 RBC 3.43 L 3.98 L Hgb 11.1 L Hct 33.1 L RDW Gran % Lymph % (Auto) Lymph # (Auto) Seg Neutrophils % 87 H Lymphocytes % 2 L Monocytes % (Manual) Carbon Dioxide Anion Gap Creatinine 0.4 L Glucose 131 H Calcium 8.4 L Phosphorus AST Alkaline Phosphatase 37 L Total Protein 5.1 L Albumin 3.1 L Globulin 2.0 L Urine Protein Urine Ketones Urine Urobilinogen Urine Mucus 03/02/19 03/02/19 03/02/19 11:44 11:44 11:32 RBC 5.29 H Hgb 16.8 H Hct 50.4 H RDW 14.8 H Gran % 88.1 H Lymph % (Auto) 7.9 L Lymph # (Auto) 0.7 L Seg Neutrophils % Lymphocytes % Monocytes % (Manual) Carbon Dioxide Anion Gap Creatinine 0.5 L Glucose 111 H Calcium Phosphorus AST Alkaline Phosphatase Total Protein Albumin Globulin Urine Protein 100 A Urine Ketones 5/tr A Urine Urobilinogen 2.0 A Urine Mucus Many A Meds: Medications Acetaminophen (Tylenol) 650 mg PO Q4-6HP PRN; Protocol PRN Reason: Per Pain Protocol/Fever > 101 Hydrocodone Bitart/Acetaminophen ([place] 10/325mg) 0 tab PO Q4HP PRN; Protocol PRN Reason: Per Pain Protocol Last Admin: 03/05/19 08:32 Dose: 2 tab Documented by: Albuterol/Ipratropium (Duoneb) 3 ml NEB Q6HRT [facility] Last Admin: 03/05/19 00:53 Dose: 3 ml Documented by: Aspirin (Aspirin) 81 mg PO BID [facility] Last Admin: 03/05/19 08:32 Dose: 81 mg Documented by: Bisacodyl (Dulcolax) 10 mg DE Q2-3DAYS PRN PRN Reason: Constipation Budesonide (Pulmicort) 0.5 mg NEB Q12 [facility] Last Admin: 03/04/19 19:04 Dose: 0.5 mg Documented by: Docusate Sodium (Colace) 100 mg PO BID [facility] Last Admin: 03/05/19 08:32 Dose: 100 mg Documented by: Magnesium Sulfate (Magnesium Sulfate) 2 gm in 50 mls @ 50 mls/hr IV UD PRN PRN Reason: MG = or < 1.7 Acetaminophen (Ofirmev) 650 mg in 65 mls @ 130 mls/hr IV Q6HP PRN; Protocol PRN Reason: Per Pain Protocol/Fever > 101 Iron Carb/Multivit/[place]/Folic Acid (Multivitamin W/Minerals) 1 tab PO DAILY [facility] Last Admin: 03/05/19 08:32 Dose: 1 tab Documented by: Magnesium Hydroxide (Milk Of Magnesia) 30 ml PO BIDP PRN PRN Reason: Constipation Melatonin (Melatonin 3mg Tablet) 3 mg PO HSP PRN PRN Reason: Insomnia Methocarbamol (Robaxin) 750 mg PO Q6HP PRN PRN Reason: Muscle Spasm Morphine Sulfate (Morphine) 0 mg IV Q1HP PRN; Protocol PRN Reason: Per Pain Protocol Nicotine (Nicoderm) 21 mg TOPICAL DAILY@1000 [facility] Last Admin: 03/04/19 09:59 Dose: 21 mg Documented by: Ondansetron HCl (Zofran) 4 mg IV Q4HP PRN; Protocol PRN Reason: Nausea And Vomiting Last Admin: 03/03/19 11:08 Dose: 4 mg Documented by: Polyethylene Glycol (Miralax) 17 gm PO DAILYP PRN PRN Reason: Constipation Potassium Chloride (Klor-Con) 40 meq PO DAILYP PRN PRN Reason: K+ < 3.5 Senna (Senokot) 2 tab PO HS [facility] Last Admin: 03/04/19 20:54 Dose: Not Given Documented by: Sodium Biphosphate/Sodium Phosphate (Fleets Adult) 1 dose DE Q3-4DAYS PRN PRN Reason: Constipation Sodium Chloride (Saline Flush) 10 ml IV Q8 [facility] Last Admin: 03/05/19 06:12 Dose: 10 ml Documented by: Medical - PN: A/P - Time Spent With Patient Total time spent is greater than 50% in coordination of care (as documented) at patient's floor/unit and/or counseling patient: - Narrative A/P Narrative: A: *Left femur fracture: s/p ORIF (03/02) Managed by Dr. Huber. *Pain management continue as needed opioids *COPD (uses home O2 prn 4-5x's/week)/Pulm HTN: *Tobacco abuse: *EtOH abuse: *History of DJD/osteoporosis. Stable Plan -Ortho per Dr. Huber -IS -Continue PT OT/bronchodilators/pulmonary toilet -nutrition support -Nicotine patch, Discussed smoking cessation -ppx: per ortho ASA 81 bid full code Medical - PN: Qual - VTE Deep Vein Thrombosis/Pulmonary Embolism Present on Admission: No
[2019-03-05] MEDS: NICOTINE 21 MG PATCH TOPICAL SCH (09:47)
[2019-03-05] MEDS: BUDESONIDE 0.5 MG/2 ML AMPUL.NEB NEB SCH ×2 (10:07→19:15)
--- NOTE | 2019-03-05 10:21 | Discharge Summary ---
Medical - DS: Prov Patient information: Note initiated : 03/05/19 at 10:19 am Service Date, if different from initiated Date: [] Patient: Emelia Candelaria 63 y/o F admitted on 03/02/19 for Fall, left hip pain. Chief Complaint: [] Date of admission: 03/02/19 14:41 Discharge date: 03/06/19 Primary care physician: Isaias Viveros Consults: 03/03/19 07:34 Consult to Physician [CONS] Routine Comment: Consulting Provider: Aric Maynard Reason For Exam: Physician to Consult Consult to Physician [CONS] Routine Comment: Consulting Provider: Wil Arriaga Reason For Exam: Physician to Consult Medical - DS: Meds - Discharge Medications Prescriptions: Aspirin [Aspirin EC] 81 mg PO BID #30 tablet. Transmission Status: Received by [facility] HYDROcodone/APAP 10/325MG [[place] 10-325Mg] 1 - 2 tab PO Q4H PRN #60 tab PRN Reason: Pain Prescription Printed Ondansetron [Zofran] 4 mg SL Q4HP PRN #20 tab PRN Reason: Nausea And Vomiting Transmission Status: Re[facility] by [facility] Active and Home Medications: Home Medications albuterol sulfate 90 mcg/actuation aerosol inhaler See Dose Instructions INHALATION Q4H PRN #36 g 07/08/17 [Rx Confirmed 03/02/19 Last Taken 03/02/19 08:00 90 mcg] budesonide-formoterol HFA 160 mcg-4.5 mcg/actuation aerosol inhaler 2 inh INHALATION TID #18 g 07/08/17 [Rx Confirmed 03/02/19 Last Taken 03/02/19 08:00 2 inh.] hydrocodone 10 mg-acetaminophen 325 mg tablet 1 tab PO Q4H PRN #100 tab 04/15/18 [Rx Confirmed 03/02/19 Last Taken 03/01/19 16:00 1/2 tab] predniSONE [Prednisone] 5 mg PO DAILY 03/02/19 [History Confirmed 03/02/19 Last Taken 03/02/19 08:00 5 mg.] Aspirin [Aspirin EC] 81 mg PO BID #30 tablet. 03/03/19 [Rx Last Taken Unknown] HYDROcodone/APAP 10/325MG [[place] 10-325Mg] 1 - 2 tab PO Q4H PRN #60 tab 03/03/19 [Rx Last Taken Unknown] Ondansetron [Zofran] 4 mg SL Q4HP PRN #20 tab 03/03/19 [Rx Last Taken Unknown] Medical - DS: Hosp Hospital Course: Ms. Candelaria is a 63 year old F with history of O2 dependent COPD, long-standing history of active smoking presents presents to ER following a fall off stairs this morning sustaining trauma to her left hip. She was brought in by EMS. She denied any precipitating events including lightheadedness chest palpitation dizziness prior to fall. She attributes the fall to getting off balance. Initial work-up was consistent with left hip fracture. Orthopedics was consulted and hospitalist service was requested for admission and management of medical issues/preoperative risk evaluation. At the time of evaluation patient is alert and oriented. She is significantly short of breath currently on 2 L oxygen. She appears anxious. Denies chest pain, headache. Her last hospitalization was in May 11 to COPD flare. She actively smokes 1/2 to 2 pack a day. She is accompanied with her fianc. She denies diarrhea, dysuria, recent changes in medications. 03/03-patient doing well postop day 1. No overnight events. Complains of pain around the left femur operative site. Ongoing postop care per orthopedics. No overnight fever chills. Continue bronchodilators. 03/04 No overnight events. Patient doing well. No new complaints. 03/05 Seems to be doing well. No new complaints. Walking physical therapy. Oxygenating on room air. Likely to rehab tomorrow 03/06 Doing well, progressing. Stable for discharge Discharge diagnosis: Left femur fracture COPD tobacco abuse alcohol abuse DJD - Time Spent with Patient Total time spent providing and/or coordinating discharge services: Greater than 30 minutes Medical - DS: Exam - Constitutional Vitals: Vital Signs Temp Pulse Pulse Resp BP Pulse Ox 03/05/19 10:18 88 16 03/05/19 10:08 94 03/05/19 03:49 98.1 F 88 16 116/71 94 03/05/19 00:53 89 16 03/05/19 00:30 97.9 F 92 H 14 101/66 93 03/04/19 20:40 98.6 F 96 H 16 112/62 93 10/26/19 19:05 101 H 18 03/04/19 15:43 99.0 F 89 20 112/73 95 03/04/19 13:31 96 H 16 03/04/19 11:58 98.4 F 83 20 110/75 91 Intake and Output 03/04/19 03/05/19 03/05/19 21:59 05:59 13:59 Intake Total 240 675 Output Total 375 525 50 Balance -135 150 -50 Intake: Oral 240 675 Output: Void Amount 375 525 50 Other: Meal Pie Percent of Meal Consumed 75% Feeding Ability Independent Urine Appearance Clear Urine Color Dark Yellow Dark Yellow Dark Yellow Urine Odor Strong # Voids 1 Medical - DS: Data Labs on day of discharge: Labs from last 24 hours 03/05/19 03/05/19 04:55 04:55 WBC 6.8 RBC 3.08 L Hgb 10.0 L Hct 29.7 L MCV 96.4 MCH 32.5 MCHC 33.7 RDW 14.4 Plt Count 159 MPV 9.1 Total Counted 100 Seg Neutrophils % 64 Band Neutrophils % Not Reportable Lymphocytes % 22 Monocytes % (Manual) 14 H Platelet Estimate Normal RBC Morphology Normal Sodium 137 Potassium 4.1 Chloride 99 Carbon Dioxide 31 H Anion Gap 7.0 L BUN 15 Creatinine 0.5 L GFR Calculation 103 Glucose 108 H Uric Acid 2.9 Calcium 8.5 L Phosphorus 2.6 L Magnesium 1.8 Total Bilirubin 0.2 Direct Bilirubin < 0.2 GGT 11 AST 38 H ALT 18 Alkaline Phosphatase 45 Lactate Dehydrogenase 247 Total Protein 5.1 L Albumin 3.1 L Globulin 2.0 L Albumin/Globulin Ratio 1.6 Triglycerides 51 Medical - DS: A/P - Patient/Caregiver Discharge Instructions Activity: as per physical therapy Diet: Regular Diet Prescriptions: Aspirin [Aspirin EC] 81 mg PO BID #30 tablet.dr Transmission Status: Received by [facility] HYDROcodone/APAP 10/325MG [[place] 10-325Mg] 1 - 2 tab PO Q4H PRN #60 tab PRN Reason: Pain Prescription Printed Ondansetron [Zofran] 4 mg SL Q4HP PRN #20 tab PRN Reason: Nausea And Vomiting Transmission Status: Received by [facility] Other Amb Orders: OT Discharge Order Location: None Selected Physical Therapy at Discharge - General Location: None Selected - Follow up Plan Follow up with: Isaias Viveros MD [Primary Care Provider] - Steven Huber MD [Physician] - Disposition: Xfer SNF Prognosis: Good Rehab Potential: Good I certify that the patient requires SNF services: Yes Overall status at discharge: patient is progressing back to baseline Medical - DS: Qual - VTE Deep Vein Thrombosis/Pulmonary Embolism Present on Admission: No
[2019-03-05] MEDS: predniSONE 5 MG TABLET PO SCH (10:46)
[2019-03-05] MEDS: BUDESONIDE FORMOTEROL INH SCH ×3 (10:47→22:08)
[2019-03-05] MEDS: SENNOSIDES 1 TABLET PO SCH (20:57)
[2019-03-06] MEDS: IPRATROPIUM/ALBUTEROL 3 ML AMPUL.NEB NEB SCH ×3 (01:22→13:17)
[2019-03-06] MEDS: HYDROcodone/APAP 10/325MG TABLET PO PRN ×3 (05:19→16:04)
[2019-03-06] MEDS: 0.9 % SODIUM CHLORIDE 10 ML SYRINGE IV SCH (05:20)
[2019-03-06 06:52] LABS: Hematocrit 31.4 % (36.0-48.0); Hemoglobin 10.3 g/dL (12.0-15.0); Mean Cell Volume 97.3 fL (80.0-100.0); Mean Corpuscular HGB Conc 32.9 g/dL (31.0-36.0); Mean Platelet Volume 9.4 fL (7.4-10.4); Platelet Count 190 K/mcL (140-440); RBC 3.23 M/mcL (4.00-5.20); Red Cell Distribution Width 14.8 % (11.5-14.5); WBC 7.3 K/mcL (4.5-11.0)
[2019-03-06 07:19] LABS: ALT/SGPT 24 U/l (0-40); AST/SGOT 47 U/l (0-37); Albumin 3.1 gm/dL (3.2-5.2); Albumin/Globulin Ratio 1.2 (1.0-2.3); Alkaline Phosphatase 47 U/L (39-117); Bilirubin,Direct < 0.2 mg/dL (0.0-0.3); Bilirubin,Total 0.4 mg/dL (0.0-1.0); Blood Urea Nitrogen 15 mg/dl (8-23); Carbon Dioxide 29 mmol/L (22-30); Chloride 100 mmol/L (96-108); Globulin 2.5 gm/dL (2.2-3.7); Glomerular Filtration Rate 111; Glucose 106 mg/dL (70-105); Lactate Dehydrogenase 294 U/L (94-250); Phosphorous 3.3 mg/dL (2.7-4.5); Triglycerides 55 mg/dl (<150); Uric Acid 3.3 mg/dL (2.5-8.0)
[2019-03-06] MEDS: BUDESONIDE 0.5 MG/2 ML AMPUL.NEB NEB SCH (07:36)
[2019-03-06] MEDS: BUDESONIDE FORMOTEROL INH SCH ×2 (08:00→15:15)
[2019-03-06] MEDS: NICOTINE 21 MG PATCH TOPICAL SCH (08:08)
[2019-03-06 08:54] LABS: Eosinophils % (Manual) 1 % (0-7); Lymphocytes % 27 % (15-49); Monocytes % (Manual) 11 % (1-12); Platelet Estimate NORMAL (NORMAL); Polychromasia FEW (NONE SEEN); RBC Morphology ABNORM (NORMAL); Segmented Neutrophils % 61 % (38-78)
[2019-03-06] MEDS: MULTIVIT,THER IRON,CA,FA & MIN 1 TABLET PO SCH (09:10)
[2019-03-06] MEDS: predniSONE 5 MG TABLET PO SCH ×2 (09:10→09:23)
[2019-03-06] MEDS: ASPIRIN 81 MG TAB.CHEW PO SCH (09:11)
[2019-03-06] MEDS: ALBUTEROL SULFATE 1 PUFF INHALER INH PRN ×2 (09:12→15:06)
[2019-03-06] MEDS: DOCUSATE SODIUM 100 MG CAPSULE PO SCH (12:28)
== END 2019-03-06 16:10 | DRG 482 ==
LOC: ED 11:17 → MEDSUR 14:41
PROVIDERS: ADMIT Internal Medicine; ATTEND Internal Medicine

== ENCOUNTER 2022-03-14 17:27 | Inpatient (IN) ==
[2022-03-14 17:59] LABS: POC Calcium, Ionized 1.16 (1.16-1.32); POC Creatinine 0.3 (0.6-1.2); POC Potassium 3.8 (3.3-5.1)
[2022-03-14] MEDS ORDERED: 0.9 % SODIUM CHLORIDE 1,000 ML IV SCH (18:15)
[2022-03-14] MEDS ORDERED: 0.9 % SODIUM CHLORIDE 1,000 ML IV ONE (18:19)
[2022-03-14] MEDS ORDERED: VANCOMYCIN 750 MG in 0.9 % SODIUM CHLORIDE 250 ML IV ONE (18:37)
[2022-03-14] MEDS ORDERED: PIPERACILLIN SODIUM/TAZOBACTAM 3.375 GM in DEXTROSE 5% IN WATER 50 ML IV ONE (18:39)
--- NOTE | 2022-03-14 18:41 | Emergency Department Note ---
Lower Extremity Injury HPI General Chief Complaint: Extremity Injury, Lower Stated Complaint: foot pain/possible infection Time Seen by Provider: 03/14/22 17:33 Source: EMS Mode of arrival: EMS History of Present Illness HPI Narrative: 66-year-old female patient with history of COPD on chronic home oxygen 2 to 3 L, peripheral vascular disease, history of partial nephrectomy for adrenal adenoma, and DJD on chronic pain medication presents to the ED with complaints of right lower extremity swelling and pain x2 weeks. She states that she had a large blister developing on the top of her right foot. There is no known injury. Several days ago she brushed it with her slipper causing it to open up and drain and bleed. Since then she has had developing right lower extremity erythema and swelling. She denies F/C/S. Denies a history of MRSA. She states that a similar thing happened to her left foot, but it spontaneously resolved. She is also complaining of a open wound to her right posterior calf. She states that her dog scratched her several weeks back and since then it has had poor healing. She then tells me about another wound to the back of her left calf that she states has been present for some time. She denies diabetes. Denies history of vascular stents. She is a current 1-1/2 pack daily smoker and drinks up to 2-4 alcoholic beverages per day, but has not been able to do this in the setting of her current complaint. Related Data Home Medications Medication Instructions Recorded Confirmed prednisone 5 mg tablet 5 mg PO DAILY 03/02/19 03/02/19 Previous Rx's Medication Instructions Recorded albuterol sulfate 90 mcg/actuation See Dose Instructions inhalation 07/08/17 aerosol inhaler Q4H PRN asthma #36 grams budesonide-formoterol HFA 160 2 inh inhalation TID #18 grams 07/08/17 mcg-4.5 mcg/actuation aerosol inhaler hydrocodone 10 mg-acetaminophen 1 tab PO Q4H PRN pain #100 tabs 04/15/18 325 mg tablet aspirin 81 mg tablet,delayed 81 mg PO BID ##30 03/03/19 release hydrocodone 10 mg-acetaminophen 1 - 2 tab PO Q4H PRN Pain #60 tabs 03/03/19 325 mg tablet ondansetron 4 mg disintegrating 4 mg SL Q4HP PRN Nausea And 03/03/19 tablet Vomiting #20 tabs Allergies Allergy/AdvReac Type Severity Reaction Status Date / Time geiger Allergy Mild Rash Verified 03/14/22 17:38 silver Allergy Mild Rash Verified 03/14/22 17:38 fluconazole AdvReac Mild Hallucinati Verified 03/14/22 17:38 ng lorazepam [From Ativan] AdvReac Mild Confusion Verified 03/14/22 17:38 Review of Systems ROS ROS Narrative: Narrative: All systems ED: reviewed and negative except as stated. [facility] Narrative Patient History Narrative: Narrative: Medical/Surgical/Family History All Active Problems (Updated 03/14/22 @ 20:09 by Ani Arciniega PA-C) COPD exacerbation (Acute) Femur fracture, left (Acute) Displaced fracture of shaft of left femur (Acute) Ankle sprain and strain (Acute) Abscess of pelvis (Acute) Cellulitis of right leg (Acute) Degenerative arthritis of elbow (Chronic) Laceration (Acute) Avulsion of skin (Acute) Cellulitis (Acute) Alcohol intoxication (Acute) Fall at home (Acute) Wound of left leg (Acute) Eschar of lower leg (Acute) Infection of skin and subcutaneous tissue (Acute) Sepsis affecting skin (Acute) Encounter for wound re-check (Acute) Encounter for removal of sutures (Acute) Acute exacerbation of chronic obstructive airways disease (Acute) Osteoporosis (Chronic) Hx of partial nephrectomy (Chronic 07/24/14) Tobacco abuse (Chronic) Renal mass (Chronic 07/24/14) Pulmonary hypertension (Chronic) Kidney mass (Chronic 11/20/13) Uterine fibroid (Chronic) Degeneration of lumbar intervertebral disc (Chronic) Chronic pain syndrome (Chronic) COPD (chronic obstructive pulmonary disease) (Chronic) Asthma (Chronic) Alcohol abuse (Chronic) Adrenal adenoma (Chronic) Medical History Abdominal pain (08/18/13) Abnormal finding on radiology exam lung field; solitary pulmonary nodule Adrenal adenoma Alcohol abuse Asthma Chronic pain Chronic pain syndrome COPD (chronic obstructive pulmonary disease) Degeneration of lumbar intervertebral disc Diarrhea Disorder of kidney and ureter 08/2013--kidney nodule, unsp, CT scan Hypoalbuminemia Hyponatremia Kidney mass (11/20/13) 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 Rpt DEXA in one year Pelvic abscess (09/19/13) Large Pulmonary hypertension Renal mass (07/24/14) Sepsis (08/18/13) secondary to pelvic abscess secondary to diverticular abscess or a perirectal abscess Tobacco abuse Urinary stream slowing Uterine fibroid Surgical History History of liver biopsy (07/24/14) [facility] Hx of elbow surgery reconstruction of elbow 2007 - Niall Morales orthopedist Hx of hand surgery wrist surgery Hx of partial nephrectomy (07/24/14) Partial Right Nephrectomy and also liver biopsy Family History mother Malignant neoplasm of bone Malignant neoplasm sister Malignant neoplasm of breast Malignant neoplasm father Cardiac disease Social History Smoking Status: Current every day smoker Alcohol Intake Frequency: 2+ drinks per day Substance Use: marijuana Exam Narrative Narrative: General: AOx3, NAD, nontoxic appearing. Cachectic. Pleasant and conversant. HEENT: PERRL, EOMI, normocephalic. Moist mucous membranes. Normal facies and normal dentition. Chest: Symmetric, no pain to palpation Respiratory: Lungs clear to auscultation bilaterally. No respiratory distress. Stable sats on 3 L nasal cannula Heart: Regular rate and rhythm, no murmurs/clicks/rubs. Abdomen: Non-tender, Non distended, normal bowel tones. No organomegaly. Extremities: Warm and well perfused. Right lower extremity with cellulitis of the foot extending up circumferentially to the mid calf. There is a dry poor healing ulceration to the right medial posterior calf. The extremity is 2+ pitting edema and there is a large fluctuant wound to the dorsum of the foot measuring 6 cm in diameter. There is underlying tissue necrosis to the wound margins. The left lower extremity posterior calf has a necrotic ulceration with surrounding erythema, no left lower extremity cellulitis noted. Neuro: No focal deficits. Cranial nerves II-XII grossly normal. Skin: Warm dry, no rashes or lesions, no cyanosis. Psych: Normal mood and affect Heme/Lymph: No abnormal bruising Course Course Course Narrative: 66-year-old female presents for right lower extremity cellulitis Reevaluation(s) Reevaluation #1: Obtain basic labs, blood cultures VBG with a lactate of 2.7, so we will start IV fluids 30 mils per KG and monitor I was able to obtain a culture of the right foot wound. I did drain the fluid which appeared to be serous fluid. I think her foot wound is consistent with a seroma. The fluid was sent for culture and Gram stain. I did order an x-ray of the foot to query for osteomyelitis, which is negative. Give IV vancomycin and Zosyn Vital Signs Vital signs: Vital Signs Temperature 98.0 F 03/14/22 17:33 Pulse Rate 114 H 03/14/22 17:33 Respiratory Rate 22 03/14/22 17:33 Blood Pressure 173/110 03/14/22 17:33 Pulse Oximetry (%) 96 03/14/22 17:33 Oxygen Delivery Method 03/14/22 17:33 Temperature 98.0 F 03/14/22 17:33 Pulse Rate 104 H 03/14/22 19:59 Respiratory Rate 22 03/14/22 17:33 Blood Pressure 129/80 03/14/22 19:31 Pulse Oximetry (%) 93 03/14/22 19:59 Oxygen Delivery Method 03/14/22 17:33 MDM MDM Narrative Medical decision making narrative: Right lower extremity cellulitis Seroma of the right foot Patient was given IV antibiotics here and hydrated with IV fluids for her elevated lactate. Blood cultures and fluid Gram stain and culture are pending. I am worried about the severity of her lower extremity cellulitis, and given her lack of resources at home, I think that she would benefit from observation admis belem and stabilization with continuation of IV antibiotics and arrangement for home health nursing and wound care. I reached out to the hospitalist for consultation and admission. Currently her disposition is pending I have signed the patient out to Dr. Morales at change of shift. Please see his note for further details and plan of care. Lab Data Result diagrams: 03/14/22 18:02 03/14/22 18:02 Labs: Lab Results 03/14/22 03/14/22 03/14/22 Range/Units 17:54 17:54 18:02 WBC 9.2 (4.5-11.0) K/mcL RBC 4.51 (3.59-5.38) M/mcL Hgb 13.7 (11.2-15.7) g/dL Hct 42.7 (34.1-44.9) % POC Hct 44.0 (36-48) MCV 94.7 (80.0-100.0) fL MCH 30.4 (26.0-34.0) pg MCHC 32.1 (31.0-36.0) g/dL RDW 14.1 (11.5-14.5) % Plt Count 309 (140-440) K/mcL MPV 11.4 (8.8-12.5) fL Immature Gran % (Auto) 0.3 (0.0-0.5) % Neut % (Auto) 73.5 (38.0-78.0) % Lymph % (Auto) 15.9 (15.5-49.0) % Stanly % (Auto) 9.5 (1.0-12.0) % Eos % (Auto) 0.4 (0.0-7.0) % Baso % (Auto) 0.4 (0.0-2.0) % Lymph # (Auto) 1.46 L (1.50-4.80) K/mcL Stanly # (Auto) 0.87 (0.10-0.90) K/mcL Eos # (Auto) 0.04 (0.00-0.70) K/mcL Baso # (Auto) 0.04 (0.00-0.30) K/mcL Seg Neutrophils % Band Neutrophils % Lymphocytes % Monocytes % (Manual) Eosinophils % (Manual) Basophils % (Manual) Metamyelocytes % Myelocytes % Promyelocytes % Immature Gran # 0.03 (0.00-0.05) K/mcl Absolute Neutrophils 6.73 (1.80-8.00) K/mcL WBC Morphology Vacuolated Neuts Plasmacytoid Lymphs Reactive Lymphocytes Blast Cells Plasma Cells Other Cell Type Toxic Granulation Dohle Bodies Platelet Estimate RBC Morphology Polychromasia Hypochromasia Poikilocytosis Basophilic Stippling Anisocytosis Microcytosis Macrocytosis Spherocytes Pappenheimer Bodies Target Cells Tear Drop Cells Ovalocytes Stomatocytes Helmet Cells Joyce-Taconite Bodies Newton Cells Acanthocytes (Spur) RBC Fragments POC VBG pH 7.33 (7.32-7.42) POC VBG pCO2 at Temp 66.4 H* (41-51) POC VBG pO2 23 L (25-40) POC VBG HCO3 35.3 H (24-28) POC VBG Total CO2 37.0 H (25-29) POC Venous O2 Sat 34.0 L (40-70) POC VBG Base Excess 9.0 H* (-2-2) VBG Lactic Acid 2.7 H (0.5-2) POC Sodium 137 (133-145) Sodium (133-145) mmol/L POC Potassium 3.8 (3.3-5.1) Potassium (3.3-5.1) mmol/L POC Chloride 95 L (96-108) Chloride (96-108) mmol/L Carbon Dioxide (22-30) mmol/L POC Total CO2 33.0 H (22-30) Anion Gap (8.0-16.0) POC BUN 10 (6-20) BUN (8-23) mg/dL Creatinine (0.6-1.1) mg/dL POC Creatinine 0.3 L (0.6-1.2) GFR Calculation Glucose (70-105) mg/dL POC Glucose 87 (70-105) Calcium (8.6-10.4) mg/dL POC WB Ioniz Calcium 1.16 (1.16-1.32) Total Bilirubin (0.1-1.0) mg/dL AST (<32) U/L ALT (<40) U/L Alkaline Phosphatase (39-117) U/L Total Protein (5.9-8.4) gm/dL Albumin (3.2-5.2) gm/dL Globulin (2.2-3.7) gm/dL Albumin/Globulin Ratio (1.0-2.3) 03/14/22 03/14/22 Range/Units 18:02 18:02 WBC (4.5-11.0) K/mcL RBC (3.59-5.38) M/mcL Hgb (11.2-15.7) g/dL Hct (34.1-44.9) % POC Hct (36-48) MCV (80.0-100.0) fL MCH (26.0-34.0) pg MCHC (31.0-36.0) g/dL RDW (11.5-14.5) % Plt Count (140-440) K/mcL MPV (8.8-12.5) fL Immature Gran % (Auto) (0.0-0.5) % Neut % (Auto) (38.0-78.0) % Lymph % (Auto) (15.5-49.0) % Stanly % (Auto) (1.0-12.0) % Eos % (Auto) (0.0-7.0) % Baso % (Auto) (0.0-2.0) % Lymph # (Auto) (1.50-4.80) K/mcL Stanly # (Auto) (0.10-0.90) K/mcL Eos # (Auto) (0.00-0.70) K/mcL Baso # (Auto) (0.00-0.30) K/mcL Seg Neutrophils % TNP Band Neutrophils % TNP Lymphocytes % TNP Monocytes % (Manual) TNP Eosinophils % (Manual) TNP Basophils % (Manual) TNP Metamyelocytes % TNP Myelocytes % TNP Promyelocytes % TNP Immature Gran # (0.00-0.05) K/mcl Absolute Neutrophils (1.80-8.00) K/mcL WBC Morphology TNP Vacuolated Neuts TNP Plasmacytoid Lymphs TNP Reactive Lymphocytes TNP Blast Cells TNP Plasma Cells TNP Other Cell Type TNP Toxic Granulation TNP Dohle Bodies TNP Platelet Estimate TNP RBC Morphology TNP Polychromasia TNP Hypochromasia TNP Poikilocytosis TNP Basophilic Stippling TNP Anisocytosis TNP Microcytosis TNP Macrocytosis TNP Spherocytes TNP Pappenheimer Bodies TNP Target Cells TNP Tear Drop Cells TNP Ovalocytes TNP Stomatocytes TNP Helmet Cells TNP Joyce-Taconite Bodies TNP Marcelle Cells TNP Acanthocytes (Spur) TNP RBC Fragments TNP POC VBG pH (7.32-7.42) POC VBG pCO2 at Temp (41-51) POC VBG pO2 (25-40) POC VBG HCO3 (24-28) POC VBG Total CO2 (25-29) POC Venous O2 Sat (40-70) POC VBG Base Excess (-2-2) VBG Lactic Acid (0.5-2) POC Sodium (133-145) Sodium 134 (133-145) mmol/L POC Potassium (3.3-5.1) Potassium 3.8 (3.3-5.1) mmol/L POC Chloride (96-108) Chloride 93 L (96-108) mmol/L Carbon Dioxide 30 (22-30) mmol/L POC Total CO2 (22-30) Anion Gap 11.0 (8.0-16.0) POC BUN (6-20) BUN 9 (8-23) mg/dL Creatinine 0.4 L (0.6-1.1) mg/dL POC Creatinine (0.6-1.2) GFR Calculation 108 Glucose 85 (70-105) mg/dL POC Glucose (70-105) Calcium 9.2 (8.6-10.4) mg/dL POC WB Ioniz Calcium (1.16-1.32) Total Bilirubin 0.3 (0.1-1.0) mg/dL AST 18 (<32) U/L ALT 11 (<40) U/L Alkaline Phosphatase 81 (39-117) U/L Total Protein 6.8 (5.9-8.4) gm/dL Albumin 3.6 (3.2-5.2) gm/dL Globulin 3.2 (2.2-3.7) gm/dL Albumin/Globulin Ratio 1.1 (1.0-2.3) Discharge Plan Patient/Caregiver Discharge Instructions Pt seen by MONUMENT CARVER/PA only: No Clinical Impression: Cellulitis of right leg Patient Disposition: Still a Patient Follow up with: Isaias Viveros MD [Primary Care Provider] - Prescriptions: No Action hydrocodone-acetaminophen 10-325 mg tablet 1 tab PO Q4H PRN (Reason: pain) Qty: 100 0RF albuterol sulfate 90 mcg/actuation HFA aerosol inhaler See Dose Instructions INHALATION Q4H PRN (Reason: asthma) Qty: 36 12RF Dose Instruction: Inhale 1-2 puffs INHALATION Q4H PRN Q4H Rx Instructions: Inhale 1-2 puffs INHALATION Q4H PRN budesonide-formoterol 160-4.5 mcg/actuation HFA aerosol inhaler 2 inh INHALATION TID Qty: 18 12RF prednisone 5 MG tablet 5 mg PO DAILY hydrocodone-acetaminophen 1 TAB tablet 1 - 2 tab PO Q4H PRN (Reason: Pain) Qty: 60 0RF ondansetron 4 MG tablet 4 mg SL Q4HP PRN (Reason: Nausea And Vomiting) Qty: 20 0RF aspirin 81 MG tablet,delayed release (DR/EC) 81 mg PO BID Qty: 30 0RF
[2022-03-14 18:48] LABS: Basophils # (Auto) 0.04 K/mcL (0.00-0.30); Basophils % (Auto) 0.4 % (0.0-2.0); Eosinophils # (Auto) 0.04 K/mcL (0.00-0.70); Eosinophils % (Auto) 0.4 % (0.0-7.0); Hematocrit 42.7 % (34.1-44.9); Hemoglobin 13.7 g/dL (11.2-15.7); Lymphocytes # (Auto) 1.46 K/mcL (1.50-4.80); Lymphocytes % (Auto) 15.9 % (15.5-49.0); Mean Cell Volume 94.7 fL (80.0-100.0); Mean Corpuscular HGB Conc 32.1 g/dL (31.0-36.0); Mean Platelet Volume 11.4 fL (8.8-12.5); Monocytes # (Auto) 0.87 K/mcL (0.10-0.90); Monocytes % (Auto) 9.5 % (1.0-12.0); Neutrophils % (Auto) 73.5 % (38.0-78.0); Platelet Count 309 K/mcL (140-440); RBC 4.51 M/mcL (3.59-5.38); Red Cell Distribution Width 14.1 % (11.5-14.5); WBC 9.2 K/mcL (4.5-11.0)
[2022-03-14 19:23] LABS: ALT/SGPT 11 U/L (<40); AST/SGOT 18 U/L (<32); Albumin 3.6 gm/dL (3.2-5.2); Albumin/Globulin Ratio 1.1 (1.0-2.3); Alkaline Phosphatase 81 U/L (39-117); Bilirubin,Total 0.3 mg/dL (0.1-1.0); Blood Urea Nitrogen 9 mg/dL (8-23); Calcium 9.2 mg/dL (8.6-10.4); Carbon Dioxide 30 mmol/L (22-30); Chloride 93 mmol/L (96-108); Globulin 3.2 gm/dL (2.2-3.7); Glomerular Filtration Rate 108; Glucose 85 mg/dL (70-105)
--- NOTE | 2022-03-14 20:04 | Internal Med History&Physical ---
HPI History of Present Illness Patient information: Note initiated : 03/14/22 at 7:57 pm Service Date, if different from initiated Date: [] Patient: Emelia Candelaria a 66 y/o F admitted on for foot pain/possible infection. Chief Complaint: [] History of present illness: Ms. Candelaria is a 66 year old F Presents the ED with foot pain and swelling. Sounds like this has been happening over the past week or 2. She says her right foot on the top started swelling into a blister and then several days ago it opened up and drained quite a bit of pinkish fluid. Is also had increased redness from her foot up to her calf and swelling and tenderness. She also complained of episode of fever and chills the other day. In the ED she was evaluated and had x-ray of the foot. Which I do not see any bony abnormalities near the site of cellulitis. On vitals she was tachycardic at 115 and had a respiratory rate of 22 on admit. Blood pressure was initially elevated but came down on its own. She had a mild elevation of lactate at 2.7. Chemistry was unremarkable Patient drinks 3-4 beers per night. She smokes 1/2 pack cigarettes daily she is on 2 to 3 L of oxygen day and night for COPD with has a history of pulmonary hypertension. Review of Systems: Pertinent positives as above plus chronic cough and dyspnea, stable. Denies headache/nausea/vomiting/chest or abdominal pain/diarrhea. Remaining 10 point review of system reviewed negative PFSH PFSH All Active Problems (Updated 03/14/22 @ 20:09 by Ani Arciniega PA-C) COPD exacerbation (Acute) Femur fracture, left (Acute) Displaced fracture of shaft of left femur (Acute) Ankle sprain and strain (Acute) Abscess of pelvis (Acute) Cellulitis of right leg (Acute) Degenerative arthritis of elbow (Chronic) Laceration (Acute) Avulsion of skin (Acute) Cellulitis (Acute) Alcohol intoxication (Acute) Fall at home (Acute) Wound of left leg (Acute) Eschar of lower leg (Acute) Infection of skin and subcutaneous tissue (Acute) Sepsis affecting skin (Acute) Encounter for wound re-check (Acute) Encounter for removal of sutures (Acute) Acute exacerbation of chronic obstructive airways disease (Acute) Osteoporosis (Chronic) Hx of partial nephrectomy (Chronic 07/24/14) Tobacco abuse (Chronic) Renal mass (Chronic 07/24/14) Pulmonary hypertension (Chronic) Kidney mass (Chronic 11/20/13) Uterine fibroid (Chronic) Degeneration of lumbar intervertebral disc (Chronic) Chronic pain syndrome (Chronic) COPD (chronic obstructive pulmonary disease) (Chronic) Asthma (Chronic) Alcohol abuse (Chronic) Adrenal adenoma (Chronic) Medical History Abdominal pain (08/18/13) Abnormal finding on radiology exam lung field; solitary pulmonary nodule Adrenal adenoma Alcohol abuse Asthma Chronic pain Chronic pain syndrome COPD (chronic obstructive pulmonary disease) Degeneration of lumbar intervertebral disc Diarrhea Disorder of kidney and ureter 08/2013--kidney nodule, unsp, CT scan Hypoalbuminemia Hyponatremia Kidney mass (11/20/13) 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 Rpt DEXA in one year Pelvic abscess (09/19/13) Large Pulmonary hypertension Renal mass (07/24/14) Sepsis (08/18/13) secondary to pelvic abscess secondary to diverticular abscess or a perirectal abscess Tobacco abuse Urinary stream slowing Uterine fibroid Surgical History History of liver biopsy (07/24/14) [facility] Hx of elbow surgery reconstruction of elbow 2007 - Niall Morales orthopedist Hx of hand surgery wrist surgery Hx of partial nephrectomy (07/24/14) Partial Right Nephrectomy and also liver biopsy Family History mother Malignant neoplasm of bone Malignant neoplasm sister Malignant neoplasm of breast Malignant neoplasm father Cardiac disease Social History (Updated 01/20/18 @ 08:37 by Isaias Viveros MD) occupational status: disabled smoking status: Current every day smoker alcohol intake frequency: 2+ drinks per day substance use type: marijuana MEDS/ALLERGIES Home Medications and Allergies Home Medications Medication Instructions Recorded Confirmed Type albuterol sulfate 90 mcg/actuation See Dose Instructions inhalation 07/08/17 03/02/19 Rx aerosol inhaler Q4H PRN asthma #36 grams budesonide-formoterol HFA 160 2 inh inhalation TID #18 grams 07/08/17 03/02/19 Rx mcg-4.5 mcg/actuation aerosol inhaler hydrocodone 10 mg-acetaminophen 1 tab PO Q4H PRN pain #100 tabs 04/15/18 03/02/19 Rx 325 mg tablet prednisone 5 mg tablet 5 mg PO DAILY 03/02/19 03/02/19 History aspirin 81 mg tablet,delayed 81 mg PO BID ##30 03/03/19 Rx release hydrocodone 10 mg-acetaminophen 1 - 2 tab PO Q4H PRN Pain #60 tabs 03/03/19 Rx 325 mg tablet ondansetron 4 mg disintegrating 4 mg SL Q4HP PRN Nausea And 03/03/19 Rx tablet Vomiting #20 tabs Allergies Allergy/AdvReac Type Severity Reaction Status Date / Time geiger Allergy Mild Rash Verified 03/14/22 17:38 silver Allergy Mild Rash Verified 03/14/22 17:38 fluconazole AdvReac Mild Hallucinati Verified 03/14/22 17:38 ng lorazepam [From Ativan] AdvReac Mild Confusion Verified 03/14/22 17:38 EXAM Constitutional Vitals: Temp Pulse Resp BP Pulse Ox O2 Del Method 98.0 F 88 22 129/80 96 03/14/22 17:33 03/14/22 19:31 03/14/22 17:33 03/14/22 19:31 03/14/22 19:31 03/14/22 17:33 Exam: General: Alert, Awake, No acute Distress, frail and cachectic Eyes/N/T: EOMI, PERRL, Head/Neck: neck supple, normocephalic atraumatic CV: RRR, No murmurs, normal s1/s2 Pulm: Clear b/l, no wheezing/rhonchi/rales Abd: soft, nontender, +BS x4 Ext: no clubbing/cyanosis. LE wounds, right foot dorsum with wound drained in ED. erythema from foot to calf as well as edema and tenderness Neuro: Alert, no focal deficits, moves all extremities, CN 2-12 grossly intact, symmetrical strength b/l upper/lower, sensations intact b/l upper/lower Skin: warm/dry DATA Data Completed and Pending Labs: Labs from last 24 hours 03/14/22 03/14/22 03/14/22 18:02 18:02 18:02 WBC 9.2 RBC 4.51 Hgb 13.7 Hct 42.7 POC Hct MCV 94.7 MCH 30.4 MCHC 32.1 RDW 14.1 Plt Count 309 MPV 11.4 Immature Gran % (Auto) 0.3 Neut % (Auto) 73.5 Lymph % (Auto) 15.9 [place] % (Auto) 9.5 Eos % (Auto) 0.4 Baso % (Auto) 0.4 Lymph # (Auto) 1.46 L [place] # (Auto) 0.87 Eos # (Auto) 0.04 Baso # (Auto) 0.04 Immature Gran # 0.03 Absolute Neutrophils 6.73 Platelet Estimate Pending RBC Morphology Pending POC VBG pH POC VBG pCO2 at Temp POC VBG pO2 POC VBG HCO3 POC VBG Total CO2 POC Venous O2 Sat POC VBG Base Excess VBG Lactic Acid POC Sodium Sodium 134 POC Potassium Potassium 3.8 POC Chloride Chloride 93 L Carbon Dioxide 30 POC Total CO2 Anion Gap 11.0 POC BUN BUN 9 Creatinine 0.4 L POC Creatinine GFR Calculation 108 Glucose 85 POC Glucose Calcium 9.2 POC WB Ioniz Calcium Total Bilirubin 0.3 AST 18 ALT 11 Alkaline Phosphatase 81 Total Protein 6.8 Albumin 3.6 Globulin 3.2 Albumin/Globulin Ratio 1.1 03/14/22 03/14/22 17:54 17:54 WBC RBC Hgb Hct POC Hct 44.0 MCV MCH MCHC RDW Plt Count MPV Immature Gran % (Auto) Neut % (Auto) Lymph % (Auto) [place] % (Auto) Eos % (Auto) Baso % (Auto) Lymph # (Auto) [place] # (Auto) Eos # (Auto) Baso # (Auto) Immature Gran # Absolute Neutrophils Platelet Estimate RBC Morphology POC VBG pH 7.33 POC VBG pCO2 at Temp 66.4 H* POC VBG pO2 23 L POC VBG HCO3 35.3 H POC VBG Total CO2 37.0 H POC Venous O2 Sat 34.0 L POC VBG Base Excess 9.0 H* VBG Lactic Acid 2.7 H POC Sodium 137 Sodium POC Potassium 3.8 Potassium POC Chloride 95 L Chloride Carbon Dioxide POC Total CO2 33.0 H Anion Gap POC BUN 10 BUN Creatinine POC Creatinine 0.3 L GFR Calculation Glucose POC Glucose 87 Calcium POC WB Ioniz Calcium 1.16 Total Bilirubin AST ALT Alkaline Phosphatase Total Protein Albumin Globulin Albumin/Globulin Ratio A/P Narrative A/P Narrative: A: *RLE/Foot cellulitis/ulcers: *Sepsis w/ lactic acidosis: 2/2 above *COPD (2-3L@home)/Pulm HTN: *Immunosuppression with prednisone: For COPD *Tobacco abuse: 1.5ppd *EtOH abuse: 3-4 beers@night *Chronic LBP/DJD: Plan -IV abx, pending BC, mrsa screen -IVF -Continue home IH's & O2 -cont home prednisone -nutrition support -Nicotine patch -Smoking cessation constant> 3 minutes -PT/OT -Home medication reconciliation -ppx: Lovenox Time Spent With Patient Time: Total time spent is greater than 50% in coordination of care (as documented) at patient's floor/unit and/or counseling patient: Total time spent with greater than 50% in coordination of care (as documented) at patient's floor/unit and/or counseling patient:: Greater than 70 minutes
--- NOTE | 2022-03-14 20:14 | Emergency Department Note ---
Course Course Course Narrative: I assumed care of patient at 1999 pending evaluation by hospitalist for admission. Please refer to midlevel note documentation to care prior to this point. Patient was evaluated by hospitalist who has agreed to admit the patient. Patient is in agreement with plan. Vital Signs Vital signs: Vital Signs Temperature 98.0 F 03/14/22 17:33 Pulse Rate 114 H 03/14/22 17:33 Respiratory Rate 22 03/14/22 17:33 Blood Pressure 173/110 03/14/22 17:33 Pulse Oximetry (%) 96 03/14/22 17:33 Oxygen Delivery Method 03/14/22 17:33 Temperature 98.0 F 03/14/22 17:33 Pulse Rate 104 H 03/14/22 19:59 Respiratory Rate 22 03/14/22 17:33 Blood Pressure 129/80 03/14/22 19:31 Pulse Oximetry (%) 93 03/14/22 19:59 Oxygen Delivery Method 03/14/22 17:33 MDM MDM Narrative Medical decision making narrative: Narrative: Differential Diagnosis Differential Diagnosis: Sepsis, cellulitis Medical Records Medical records reviewed: Yes I reviewed the patient's medical records. Lab Data Lab results reviewed: Yes I reviewed the patient's lab results. Result diagrams: 03/14/22 18:02 03/14/22 18:02 Labs: Lab Results 03/14/22 03/14/22 03/14/22 Range/Units 17:54 17:54 18:02 WBC 9.2 (4.5-11.0) K/mcL RBC 4.51 (3.59-5.38) M/mcL Hgb 13.7 (11.2-15.7) g/dL Hct 42.7 (34.1-44.9) % POC Hct 44.0 (36-48) MCV 94.7 (80.0-100.0) fL MCH 30.4 (26.0-34.0) pg MCHC 32.1 (31.0-36.0) g/dL RDW 14.1 (11.5-14.5) % Plt Count 309 (140-440) K/mcL MPV 11.4 (8.8-12.5) fL Immature Gran % (Auto) 0.3 (0.0-0.5) % Neut % (Auto) 73.5 (38.0-78.0) % Lymph % (Auto) 15.9 (15.5-49.0) % [place] % (Auto) 9.5 (1.0-12.0) % Eos % (Auto) 0.4 (0.0-7.0) % Baso % (Auto) 0.4 (0.0-2.0) % Lymph # (Auto) 1.46 L (1.50-4.80) K/mcL [place] # (Auto) 0.87 (0.10-0.90) K/mcL Eos # (Auto) 0.04 (0.00-0.70) K/mcL Baso # (Auto) 0.04 (0.00-0.30) K/mcL Seg Neutrophils % Band Neutrophils % Lymphocytes % Monocytes % (Manual) Eosinophils % (Manual) Basophils % (Manual) Metamyelocytes % Myelocytes % Promyelocytes % Immature Gran # 0.03 (0.00-0.05) K/mcl Absolute Neutrophils 6.73 (1.80-8.00) K/mcL WBC Morphology Vacuolated Neuts Plasmacytoid Lymphs Reactive Lymphocytes Blast Cells Plasma Cells Other Cell Type Toxic Granulation Dohle Bodies Platelet Estimate RBC Morphology Polychromasia Hypochromasia Poikilocytosis Basophilic Stippling Anisocytosis Microcytosis Macrocytosis Spherocytes Pappenheimer Bodies Target Cells Tear Drop Cells Ovalocytes Stomatocytes Helmet Cells [place] Bodies Hawi Cells Acanthocytes (Spur) RBC Fragments POC VBG pH 7.33 (7.32-7.42) POC VBG pCO2 at Temp 66.4 H* (41-51) POC VBG pO2 23 L (25-40) POC VBG HCO3 35.3 H (24-28) POC VBG Total CO2 37.0 H (25-29) POC Venous O2 Sat 34.0 L (40-70) POC VBG Base Excess 9.0 H* (-2-2) VBG Lactic Acid 2.7 H (0.5-2) POC Sodium 137 (133-145) Sodium (133-145) mmol/L POC Potassium 3.8 (3.3-5.1) Potassium (3.3-5.1) mmol/L POC Chloride 95 L (96-108) Chloride (96-108) mmol/L Carbon Dioxide (22-30) mmol/L POC Total CO2 33.0 H (22-30) Anion Gap (8.0-16.0) POC BUN 10 (6-20) BUN (8-23) mg/dL Creatinine (0.6-1.1) mg/dL POC Creatinine 0.3 L (0.6-1.2) GFR Calculation Glucose (70-105) mg/dL POC Glucose 87 (70-105) Calcium (8.6-10.4) mg/dL POC WB Ioniz Calcium 1.16 (1.16-1.32) Total Bilirubin (0.1-1.0) mg/dL AST (<32) U/L ALT (<40) U/L Alkaline Phosphatase (39-117) U/L Total Protein (5.9-8.4) gm/dL Albumin (3.2-5.2) gm/dL Globulin (2.2-3.7) gm/dL Albumin/Globulin Ratio (1.0-2.3) 03/14/22 03/14/22 Range/Units 18:02 18:02 WBC (4.5-11.0) K/mcL RBC (3.59-5.38) M/mcL Hgb (11.2-15.7) g/dL Hct (34.1-44.9) % POC Hct (36-48) MCV (80.0-100.0) fL MCH (26.0-34.0) pg MCHC (31.0-36.0) g/dL RDW (11.5-14.5) % Plt Count (140-440) K/mcL MPV (8.8-12.5) fL Immature Gran % (Auto) (0.0-0.5) % Neut % (Auto) (38.0-78.0) % Lymph % (Auto) (15.5-49.0) % [place] % (Auto) (1.0-12.0) % Eos % (Auto) (0.0-7.0) % Baso % (Auto) (0.0-2.0) % Lymph # (Auto) (1.50-4.80) K/mcL [place] # (Auto) (0.10-0.90) K/mcL Eos # (Auto) (0.00-0.70) K/mcL Baso # (Auto) (0.00-0.30) K/mcL Seg Neutrophils % TNP Band Neutrophils % TNP Lymphocytes % TNP Monocytes % (Manual) TNP Eosinophils % (Manual) TNP Basophils % (Manual) TNP Metamyelocytes % TNP Myelocytes % TNP Promyelocytes % TNP Immature Gran # (0.00-0.05) K/mcl Absolute Neutrophils (1.80-8.00) K/mcL WBC Morphology TNP Vacuolated Neuts TNP Plasmacytoid Lymphs TNP Reactive Lymphocytes TNP Blast Cells TNP Plasma Cells TNP Other Cell Type TNP Toxic Granulation TNP Dohle Bodies TNP Platelet Estimate TNP RBC Morphology TNP Polychromasia TNP Hypochromasia TNP Poikilocytosis TNP Basophilic Stippling TNP Anisocytosis TNP Microcytosis TNP Macrocytosis TNP Spherocytes TNP Pappenheimer Bodies TNP Target Cells TNP Tear Drop Cells TNP Ovalocytes TNP Stomatocytes TNP Helmet Cells TNP [place] Bodies TNP Marcelle Cells TNP Acanthocytes (Spur) TNP RBC Fragments TNP POC VBG pH (7.32-7.42) POC VBG pCO2 at Temp (41-51) POC VBG pO2 (25-40) POC VBG HCO3 (24-28) POC VBG Total CO2 (25-29) POC Venous O2 Sat (40-70) POC VBG Base Excess (-2-2) VBG Lactic Acid (0.5-2) POC Sodium (133-145) Sodium 134 (133-145) mmol/L POC Potassium (3.3-5.1) Potassium 3.8 (3.3-5.1) mmol/L POC Chloride (96-108) Chloride 93 L (96-108) mmol/L Carbon Dioxide 30 (22-30) mmol/L POC Total CO2 (22-30) Anion Gap 11.0 (8.0-16.0) POC BUN (6-20) BUN 9 (8-23) mg/dL Creatinine 0.4 L (0.6-1.1) mg/dL POC Creatinine (0.6-1.2) GFR Calculation 108 Glucose 85 (70-105) mg/dL POC Glucose (70-105) Calcium 9.2 (8.6-10.4) mg/dL POC WB Ioniz Calcium (1.16-1.32) Total Bilirubin 0.3 (0.1-1.0) mg/dL AST 18 (<32) U/L ALT 11 (<40) U/L Alkaline Phosphatase 81 (39-117) U/L Total Protein 6.8 (5.9-8.4) gm/dL Albumin 3.6 (3.2-5.2) gm/dL Globulin 3.2 (2.2-3.7) gm/dL Albumin/Globulin Ratio 1.1 (1.0-2.3) Core Measures AMI Core Measures Followed: Yes Discharge Plan Patient/Caregiver Discharge Instructions Pt seen by [facility]TERER/PA only: No Clinical Impression: Cellulitis of right leg Patient Disposition: Xfer As Outpt/Obs ([facility]) Condition: Fair Follow up with: Isaias Viveros MD [Primary Care Provider] - Prescriptions: No Action hydrocodone-acetaminophen 10-325 mg tablet 1 tab PO Q4H PRN (Reason: pain) Qty: 100 0RF albuterol sulfate 90 mcg/actuation HFA aerosol inhaler See Dose Instructions INHALATION Q4H PRN (Reason: asthma) Qty: 36 12RF Dose Instruction: Inhale 1-2 puffs INHALATION Q4H PRN Q4H Rx Instructions: Inhale 1-2 puffs INHALATION Q4H PRN budesonide-formoterol 160-4.5 mcg/actuation HFA aerosol inhaler 2 inh INHALATION TID Qty: 18 12RF prednisone 5 MG tablet 5 mg PO DAILY hydrocodone-acetaminophen 1 TAB tablet 1 - 2 tab PO Q4H PRN (Reason: Pain) Qty: 60 0RF ondansetron 4 MG tablet 4 mg SL Q4HP PRN (Reason: Nausea And Vomiting) Qty: 20 0RF aspirin 81 MG tablet,delayed release (DR/EC) 81 mg PO BID Qty: 30 0RF
[2022-03-14 21:06] LABS: Appearance, Body Fluid Cloudy; Color, Body Fluid Orange; Mesothelial,Body Fluid 13 %; Nucleated Cells,Body Fld 2188 /cumm; RBC, Body Fluid <50,000 /cumm
[2022-03-14] MEDS ORDERED: MAGNESIUM SULFATE 2 GM/50 ML BAG IV PRN (21:26)
[2022-03-14] MEDS ORDERED: ONDANSETRON 4 MG/2 ML VIAL IV PRN (21:26)
[2022-03-14] MEDS ORDERED: POTASSIUM CHLORIDE 20 MEQ TABLET PO PRN ×2 (21:26)
[2022-03-14] MEDS ORDERED: ACETAMINOPHEN 325 MG TABLET PO PRN (21:26)
[2022-03-14] MEDS ORDERED: POTASSIUM CHLORIDE 40 MEQ in DEXTROSE 5% IN WATER 500 ML IV PRN (21:26)
[2022-03-14] MEDS ORDERED: POLYETHYLENE GLYCOL 3350 17 GM PACKET PO PRN (21:26)
[2022-03-14] MEDS ORDERED: SENNOSIDES 1 TABLET PO PRN (21:26)
[2022-03-14] MEDS: 0.9 % SODIUM CHLORIDE 10 ML SYRINGE IV SCH (21:31)
[2022-03-14] MEDS: 0.9 % SODIUM CHLORIDE 500 ML IV SCH (21:31)
[2022-03-14] MEDS: DOCUSATE SODIUM 100 MG CAPSULE PO SCH (22:25)
[2022-03-14] MEDS: cefTRIAXone 2 GM in DEXTROSE 5% IN WATER 50 ML IV SCH (22:31)
[2022-03-14] MEDS: HYDROcodone/APAP 5/325MG TABLET PO PRN (22:31)
[2022-03-14] MEDS ORDERED: cefTRIAXone 2 GM VIAL ONE (22:37)
[2022-03-14] MEDS: NICOTINE 14 MG PATCH TOPICAL SCH (23:01)
[2022-03-14] MEDS: NICOTINE 21 MG PATCH TOPICAL SCH (23:01)
[2022-03-14] MEDS ORDERED: NICOTINE 14 MG PATCH ONE (23:04)
[2022-03-14] MEDS ORDERED: NICOTINE 21 MG PATCH ONE (23:04)
[2022-03-15] MEDS: HYDROcodone/APAP 5/325MG TABLET PO PRN ×2 (02:40→07:51)
[2022-03-15] MEDS: 0.9 % SODIUM CHLORIDE 10 ML SYRINGE IV SCH ×3 (06:02→20:02)
--- NOTE | 2022-03-15 06:35 | XRay Report ---
CLINICAL INFORMATION: Swelling and erythema. Evaluate for osteomyelitis COMPARISON: None FINDINGS: Old partially unified oblique fracture to the fifth metatarsal base appreciated. No evidence of osteomyelitis. The joint spaces are normal in width and alignment without arthritic change. Moderate forefoot and midfoot soft tissue swelling noted. IMPRESSION: No clinical evidence of osteomyelitis. Moderate forefoot and midfoot soft tissue swelling compatible cellulitis Partially united old oblique fracture-fifth metatarsal base Interpreted and Authenticated by: Steven Awad 03/15/22
[2022-03-15 06:50] LABS: Basophils # (Auto) 0.05 K/mcL (0.00-0.30); Basophils % (Auto) 0.7 % (0.0-2.0); Eosinophils # (Auto) 0.12 K/mcL (0.00-0.70); Eosinophils % (Auto) 1.6 % (0.0-7.0); Hematocrit 38.9 % (34.1-44.9); Hemoglobin 12.4 g/dL (11.2-15.7); Lymphocytes # (Auto) 1.99 K/mcL (1.50-4.80); Lymphocytes % (Auto) 26.4 % (15.5-49.0); Mean Cell Volume 95.1 fL (80.0-100.0); Mean Corpuscular HGB Conc 31.9 g/dL (31.0-36.0); Mean Platelet Volume 11.2 fL (8.8-12.5); Monocytes # (Auto) 0.89 K/mcL (0.10-0.90); Monocytes % (Auto) 11.8 % (1.0-12.0); Neutrophils % (Auto) 59.4 % (38.0-78.0); Platelet Count 271 K/mcL (140-440); RBC 4.09 M/mcL (3.59-5.38); WBC 7.5 K/mcL (4.5-11.0)
[2022-03-15 07:19] LABS: ALT/SGPT 8 U/L (<40); AST/SGOT 13 U/L (<32); Albumin/Globulin Ratio 1.1 (1.0-2.3); Alkaline Phosphatase 66 U/L (39-117); Bilirubin,Direct < 0.2 mg/dL (0-0.3); Bilirubin,Total 0.2 mg/dL (0.1-1.0); Blood Urea Nitrogen 12 mg/dL (8-23); Calcium 8.8 mg/dL (8.6-10.4); Carbon Dioxide 30 mmol/L (22-30); Chloride 106 mmol/L (96-108); Globulin 2.7 gm/dL (2.2-3.7); Glomerular Filtration Rate 119; Glucose 84 mg/dL (70-105); Lactate Dehydrogenase 149 U/L (135-225); Phosphorous 3.2 mg/dL (2.5-4.5); Triglycerides 56 mg/dL (<150); Uric Acid 2.4 mg/dL (2.5-8.0)
[2022-03-15] MEDS: 0.9 % SODIUM CHLORIDE 500 ML IV SCH ×2 (07:58→18:44)
[2022-03-15] MEDS: BUDESONIDE FORMOTEROL INH SCH ×4 (08:00→19:57)
[2022-03-15] MEDS ORDERED: ALPRAZolam 0.5 MG TABLET PO PRN (08:04)
--- NOTE | 2022-03-15 08:04 | Internal Med Progress Note ---
SUBJECTIVE Subjective Patient information: Note initiated : 03/15/22 at 8:02 am Service Date, if different from initiated Date: [] Patient: Emelia Candelaria 66 y/o F admitted on 03/14/22 for foot pain/possible infection. Chief Complaint: [] Interval history: History of present illness: Ms. Candelaria is a 66 year old F Presents the ED with foot pain and swelling. Sounds like this has been happening over the past week or 2. She says her right foot on the top started swelling into a blister and then several days ago it opened up and drained quite a bit of pinkish fluid. Is also had increased redness from her foot up to her calf and swelling and tenderness. She also complained of episode of fever and chills the other day. In the ED she was evaluated and had x-ray of the foot. Which I do not see any bony abnormalities near the site of cellulitis. On vitals she was tachycardic at 115 and had a respiratory rate of 22 on admit. Blood pressure was initially elevated but came down on its own. She had a mild elevation of lactate at 2.7. Chemistry was unremarkable Patient drinks 3-4 beers per night. She smokes 1/2 pack cigarettes daily she is on 2 to 3 L of oxygen day and night for COPD with has a history of pulmonary hypertension. 03/15 Poor sleep. Tachycardia improving. Lactic acidosis resolved. Wound care referral. Continue current therapy IV antibiotics. Constitutional Vitals: Vital Signs Temp Pulse Resp BP Pulse Ox O2 Del Method O2 Flow Rate 96.8 F L 81 18 105/73 98 3 03/15/22 04:10 03/15/22 04:10 03/15/22 04:10 03/15/22 04:10 03/15/22 04:10 03/15/22 04:10 03/15/22 04:10 Period Temp Pulse Resp BP Sys/Tomas Pulse Ox O2 Del Method O2 Flow Rate Last 24 Hr 96.8 F-98.4 F 77-115 105-173/73-114 90-98 Nasal Cannula- Nasal Cannula 2-3 Intake and Output 03/14/22 03/15/22 03/15/22 22:59 05:59 13:59 Intake Total Output Total Balance Weight Intake & Output: Intake & Output 03/14/22 03/15/2222 22:59 05:59 13:59 Intake Total Output Total Balance Weight Intake: IV Sodium Chloride 0.9% 1,000 ml @ Wide Open IV BOLUS ONE Rx#: [id number] Zosyn 3.375 gm In Dextrose 5% in Water 50 ml @ 100 mls/hr IV ONCE ONE Rx#:[id number] Vancomycin 750 mg In Sodium Chloride 0.9% 250 ml @ 250 mls/ hr IV ONCE ONE Rx#:[id number] Rocephin 2 gm In Dextrose 5% in Water 50 ml @ 100 mls/hr IV Q24H [facility] Rx#:[id number] Oral Output: Void Amount Other: Meal Percent of Meal Consumed Urine Appearance Urine Color Urine Odor Stool Size Stool Color Stool Consistency # Voids # Bowel Movements Exam: General: Alert, Awake, No acute Distress, frail and cachectic Eyes/N/T: EOMI, , Head/Neck: neck supple, CV: RRR, No murmurs, Pulm: Clear b/l, no wheezing/rhonchi/rales Abd: soft, nontender, +BS x4 Ext: no clubbing/cyanosis. LE wounds, right foot dorsum with wound drained in ED. erythema from foot to calf as well as edema and tenderness Neuro: Alert, no focal deficits, moves all extremities, Skin: warm/dry OBJ DATA Labs CBC & Chem 7: 03/15/22 05:28 03/15/22 05:28 Labs: Abnormal Lab Results 03/15/22 03/14/22 03/14/22 05:28 18:02 18:02 Lymph # (Auto) POC VBG pCO2 at Temp POC VBG pO2 POC VBG HCO3 POC VBG Total CO2 POC Venous O2 Sat POC VBG Base Excess VBG Lactic Acid POC Chloride Chloride 93 L POC Total CO2 Anion Gap 6.0 L Creatinine 0.3 L 0.4 L POC Creatinine Uric Acid 2.4 L C-Reactive Protein 4.70 H Total Protein 5.7 L Albumin 3.0 L 03/14/22 03/14/22 03/14/22 18:02 17:54 17:54 Lymph # (Auto) 1.46 L POC VBG pCO2 at Temp 66.4 H* POC VBG pO2 23 L POC VBG HCO3 35.3 H POC VBG Total CO2 37.0 H POC Venous O2 Sat 34.0 L POC VBG Base Excess 9.0 H* VBG Lactic Acid 2.7 H POC Chloride 95 L Chloride POC Total CO2 33.0 H Anion Gap Creatinine POC Creatinine 0.3 L Uric Acid C-Reactive Protein Total Protein Albumin Meds: Medications Acetaminophen (Acetaminophen 325 Mg Tablet) 650 mg PO Q6HP PRN; Protocol PRN Reason: Per Pain Protocol/Fever > 101 Hydrocodone Bitart/Acetaminophen (Hydrocodone/Apap 5/325mg Tablet) 1 tab PO Q4HP PRN PRN Reason: PAIN LEVEL 3-6 Last Admin: 03/15/22 07:51 Dose: 1 tab Albuterol/Ipratropium (Ipratropium/Albuterol 3 Ml Ampul.Neb) 3 ml NEB Q4HP PRN PRN Reason: Shortness Of Breath Docusate Sodium (Docusate Sodium 100 Mg Capsule) 100 mg PO BID [facility] Last Admin: 03/14/22 22:25 Dose: Not Given Enoxaparin Sodium (Enoxaparin 30 Mg/0.3 Ml Syringe) 30 mg SQ DAILY [facility] Ceftriaxone Sodium 2 gm/ (Dextrose) 50 mls @ 100 mls/hr IV Q24H [facility]; Protocol Last Infusion: 03/14/22 23:02 Dose: Infused Potassium Chloride 40 meq/ (Dextrose) 520 mls @ 130 mls/hr IV UD PRN PRN Reason: Potassium < 3 Magnesium Sulfate (Magnesium Sulfate) 2 gm in 50 mls @ 50 mls/hr IV UD PRN PRN Reason: Magnesium </= 1.6 Sodium Chloride (Sodium Chloride 0.9%) 500 mls @ 50 mls/hr IV .Q10H [facility] Last Admin: 03/14/22 21:31 Dose: 50 mls/hr Nicotine (Nicotine 21 Mg Patch) 21 mg TOPICAL DAILY@1000 [facility] Last Admin: 03/14/22 23:01 Dose: 21 mg Nicotine (Nicotine 14 Mg Patch) 14 mg TOPICAL DAILY@1000 [facility] Last Admin: 03/14/22 23:01 Dose: 14 mg Ondansetron HCl (Ondansetron 4 Mg/2 Ml Vial) 4 mg IV Q4HP PRN PRN Reason: Nausea And Vomiting Polyethylene Glycol (Polyethylene Glycol 3350 17 Gm Packet) 17 gm PO DAILYP PRN PRN Reason: Constipation Potassium Chloride (Potassium Chloride 20 Meq Tablet) 40 meq PO UD PRN PRN Reason: Potssium is 3-3.5 Potassium Chloride (Potassium Chloride 20 Meq Tablet) 40 meq PO UD PRN PRN Reason: Potassium < 3 Senna (Sennosides 1 Tablet) 2 tab PO DAILYP PRN PRN Reason: Constipation Sodium Chloride (0.9 % Sodium Chloride 10 Ml Syringe) 10 ml IV Q8 [facility] Last Admin: 03/15/22 06:02 Dose: Not Given A/P Narrative A/P Narrative: A: *RLE/Foot cellulitis/ulcers: *Sepsis w/ lactic acidosis: 2/2 above. improving *COPD (2-3L@home)/Pulm HTN: *Immunosuppression with prednisone: For COPD *Tobacco abuse: 1.5ppd *EtOH abuse: 3-4 beers@night *Chronic LBP/DJD: Plan: -IV Rocephin, pending BC, mrsa screen neg -s/p IVF -Continue home IH's & O2 -cont home prednisone -nutrition support -Nicotine patch, Smoking cessation counseling -PT/OT -ppx: Lovenox Time Spent With Patient Time: Total time spent is greater than 50% in coordination of care (as documented) at patient's floor/unit and/or counseling patient: Total time spent with greater than 50% in coordination of care (as documented) at patient's floor/unit and/or counseling patient:: 25 - 35 minutes QUALITY VTE Deep Vein Thrombosis/Pulmonary Embolism Present on Admission: No
[2022-03-15] MEDS: IPRATROPIUM/ALBUTEROL 3 ML AMPUL.NEB NEB PRN ×2 (08:06→18:01)
[2022-03-15] MEDS: DOCUSATE SODIUM 100 MG CAPSULE PO SCH ×2 (09:15→19:33)
[2022-03-15] MEDS: predniSONE 5 MG TABLET PO SCH (09:15)
[2022-03-15] MEDS: ENOXAPARIN 30 MG/0.3 ML SYRINGE SQ SCH (11:09)
[2022-03-15] MEDS: NICOTINE 14 MG PATCH TOPICAL SCH (11:13)
[2022-03-15] MEDS: NICOTINE 21 MG PATCH TOPICAL SCH (11:14)
[2022-03-15] MEDS: HYDROcodone/APAP 10/325MG TABLET PO PRN ×4 (12:01→23:52)
[2022-03-15] MEDS: cefTRIAXone 2 GM in DEXTROSE 5% IN WATER 50 ML IV SCH (14:01)
--- NOTE | 2022-03-15 15:13 | Internal Med Progress Note ---
SUBJECTIVE Subjective Patient information: Note initiated : 03/15/22 at 3:11 pm Service Date, if different from initiated Date: [] Patient: Emelia Candelaria 66 y/o F admitted on 03/14/22 for foot pain/possible infection. Chief Complaint: [] Interval history: 03/16 Patient complaining of severe pain in her right foot. Added Dilaudid IV and Toradol IV as needed. Consulted Dr. Temple today to evaluate the patient's wound, he feels the patient has a organizing hematoma on that foot. Continue ceftriaxone for now. Patient also having loose stools, will monitor and if this persists evaluate for C. difficile. Physical exam Head: Atraumatic, normal inspection. Eyes: normal appearance, no scleral icterus. Neck: full ROM Respiratory: no respiratory distress. Cardiovascular: normal rate and rhythm, S1, S2. GI/Abdominal: soft, nontender, no guarding. Extremities: Fluctuant area on dorsal aspect of right foot, healing right calf wound, chronic left calf wound. Neurological: CN II-XII intact, intact motor, intact sensation. Psychiatric: normal mood. Skin: warm, normal color Constitutional Vitals: Vital Signs Temp Pulse Resp BP Pulse Ox O2 Del Method O2 Flow Rate 98.4 F 80 20 120/88 97 3 03/15/22 11:39 03/15/22 08:55 03/15/22 11:39 03/15/22 11:39 03/15/22 11:39 03/15/22 11:39 03/15/22 11:39 Period Temp Pulse Resp BP Sys/Tomas Pulse Ox O2 Del Method O2 Flow Rate Last 24 Hr 96.8 F-98.4 F 77-115 - 105-173/73-114 90-100 Nasal Cannula-Nasal Cannula 2-3 Intake and Output 03/15/22 03/15/22 03/15/22 05:59 13:59 21:59 Intake Total 1350 Output Total 40 Balance 1310 Weight 37.875 kg Patient Weight 03/16/22 05:59 Weight 37.875 kg Intake & Output: Intake & Output 03/15/22 03/15/22 03/15/22 05:59 13:59 21:59 Intake Total 1350 Output Total 40 Balance 1310 Weight 37.875 kg Intake: IV 500 Sodium Chloride 0.9% 500 ml @ 500 50 mls/hr IV .Q10H [facility] Rx#: [id number] Rocephin 2 gm In Dextrose 5% in Water 50 ml @ 100 mls/hr IV Q24H [facility] Rx#:[id number] Oral 850 Output: Void Amount 40 Other: Meal Breakfast Lunch Percent of Meal Consumed 100% 75% Feeding Ability Independent Independent Urine Appearance Urine Color Yellow Urine Odor Stool Size Stool Color Stool Consistency # Voids 2 1 # Bowel Movements OBJ DATA Labs CBC & Chem 7: 03/15/22 05:28 03/15/22 05:28 Labs: Abnormal Lab Results 03/15/22 03/14/22 03/14/22 05:28 18:02 18:02 Lymph # (Auto) POC VBG pCO2 at Temp POC VBG pO2 POC VBG HCO3 POC VBG Total CO2 POC Venous O2 Sat POC VBG Base Excess VBG Lactic Acid POC Chloride Chloride 93 L POC Total CO2 Anion Gap 6.0 L Creatinine 0.3 L 0.4 L POC Creatinine Uric Acid 2.4 L C-Reactive Protein 4.70 H Total Protein 5.7 L Albumin 3.0 L 03/14/22 03/14/22 03/14/22 18:02 17:54 17:54 Lymph # (Auto) 1.46 L POC VBG pCO2 at Temp 66.4 H* POC VBG pO2 23 L POC VBG HCO3 35.3 H POC VBG Total CO2 37.0 H POC Venous O2 Sat 34.0 L POC VBG Base Excess 9.0 H* VBG Lactic Acid 2.7 H POC Chloride 95 L Chloride POC Total CO2 33.0 H Anion Gap Creatinine POC Creatinine 0.3 L Uric Acid C-Reactive Protein Total Protein Albumin Meds: Medications Acetaminophen (Acetaminophen 325 Mg Tablet) 650 mg PO Q6HP PRN; Protocol PRN Reason: Per Pain Protocol/Fever > 101 Hydrocodone Bitart/Acetaminophen (Hydrocodone/Apap 10/325mg Tablet) 1 tab PO Q4HP PRN; Protocol PRN Reason: pain Last Admin: 03/15/22 12:01 Dose: 1 tab Albuterol/Ipratropium (Ipratropium/Albuterol 3 Ml Ampul.Neb) 3 ml NEB Q4HP PRN PRN Reason: Shortness Of Breath Last Admin: 03/15/22 08:06 Dose: 3 ml Alprazolam (Alprazolam 0.5 Mg Tablet) 0.5 mg PO TIDP PRN PRN Reason: Anxiety Docusate Sodium (Docusate Sodium 100 Mg Capsule) 100 mg PO BID [facility] Last Admin: 03/15/22 09:15 Dose: Not Given Enoxaparin Sodium (Enoxaparin 30 Mg/0.3 Ml Syringe) 30 mg SQ DAILY [facility] Last Admin: 03/15/22 11:09 Dose: 30 mg Ceftriaxone Sodium 2 gm/ (Dextrose) 50 mls @ 100 mls/hr IV Q24H [facility]; Protocol Last Admin: 03/15/22 14:01 Dose: 100 mls/hr Potassium Chloride 40 meq/ (Dextrose) 520 mls @ 130 mls/hr IV UD PRN PRN Reason: Potassium < 3 Magnesium Sulfate (Magnesium Sulfate) 2 gm in 50 mls @ 50 mls/hr IV UD PRN PRN Reason: Magnesium </= 1.6 Sodium Chloride (Sodium Chloride 0.9%) 500 mls @ 50 mls/hr IV .Q10H [facility] Last Admin: 03/15/22 07:58 Dose: 50 mls/hr Nicotine (Nicotine 21 Mg Patch) 21 mg TOPICAL DAILY@1000 [facility] Last Admin: 03/15/22 11:14 Dose: 21 mg Nicotine (Nicotine 14 Mg Patch) 14 mg TOPICAL DAILY@1000 [facility] Last Admin: 03/15/22 11:13 Dose: 14 mg Ondansetron HCl (Ondansetron 4 Mg/2 Ml Vial) 4 mg IV Q4HP PRN PRN Reason: Nausea And Vomiting Budesonide- Formoterol 160-4.5 Mcg Inhaler 2 dose INH TID [facility] Last Admin: 03/15/22 13:29 Dose: 2 dose Pneumococcal Polyvalent Vaccine (Pneumococcal 23-Stephanie P-Sac Vac 0.5 Ml Syringe) 0.5 ml IM .ONCE ONE Stop: 03/16/22 10:01 Polyethylene Glycol (Polyethylene Glycol 3350 17 Gm Packet) 17 gm PO DAILYP PRN PRN Reason: Constipation Potassium Chloride (Potassium Chloride 20 Meq Tablet) 40 meq PO UD PRN PRN Reason: Potssium is 3-3.5 Potassium Chloride (Potassium Chloride 20 Meq Tablet) 40 meq PO UD PRN PRN Reason: Potassium < 3 Prednisone (Prednisone 5 Mg Tablet) 5 mg PO [facility] Last Admin: 03/15/22 09:15 Dose: 5 mg Senna (Sennosides 1 Tablet) 2 tab PO DAILYP PRN PRN Reason: Constipation Sodium Chloride (0.9 % Sodium Chloride 10 Ml Syringe) 10 ml IV Q8 [facility] Last Admin: 03/15/22 14:02 Dose: Not Given A/P Narrative A/P Narrative: A: *RLE/Foot cellulitis/ulcers/hematoma: *Resolved sepsis w/ lactic acidosis: 2/2 above *COPD (2-3L@home)/Pulm HTN: *Immunosuppression with prednisone: For COPD *Tobacco abuse: 1.5ppd *EtOH abuse: 3-4 beers@night *Chronic LBP/DJD: Plan: -IV Rocephin, pending BC, mrsa screen neg -Analgesics as needed. -Wound care, Dr. Temple consulted. -Continue home IH's & O2 -cont home prednisone -nutrition support -Nicotine patch, Smoking cessation counseling -PT/OT -ppx: Lovenox Time Spent With Patient Time: Total time spent is greater than 50% in coordination of care (as documented) at patient's floor/unit and/or counseling patient: QUALITY VTE Deep Vein Thrombosis/Pulmonary Embolism Present on Admission: No
[2022-03-16] MEDS: HYDROcodone/APAP 10/325MG TABLET PO PRN ×5 (04:04→20:22)
[2022-03-16] MEDS: 0.9 % SODIUM CHLORIDE 500 ML IV SCH ×3 (04:07→22:38)
[2022-03-16] MEDS: 0.9 % SODIUM CHLORIDE 10 ML SYRINGE IV SCH ×3 (05:14→22:35)
[2022-03-16] MEDS: predniSONE 5 MG TABLET PO SCH (06:48)
[2022-03-16] MEDS: DOCUSATE SODIUM 100 MG CAPSULE PO SCH ×2 (08:45→20:21)
[2022-03-16] MEDS: ENOXAPARIN 30 MG/0.3 ML SYRINGE SQ SCH (08:45)
[2022-03-16] MEDS: cefTRIAXone 2 GM in DEXTROSE 5% IN WATER 50 ML IV SCH (08:46)
[2022-03-16] MEDS: BUDESONIDE FORMOTEROL INH SCH ×3 (08:46→20:23)
[2022-03-16] MEDS ORDERED: PNEUMOCOCCAL 23-VAL P-SAC VAC 0.5 ML SYRINGE IM ONE (10:00)
[2022-03-16] MEDS: NICOTINE 21 MG PATCH TOPICAL SCH (10:32)
[2022-03-16] MEDS: NICOTINE 14 MG PATCH TOPICAL SCH (10:32)
[2022-03-16] MEDS ORDERED: HYDROmorphone 0.5 MG/0.5 ML SYRINGE IV PRN (11:25)
--- NOTE | 2022-03-16 17:07 | General Surgery Progress Note ---
SUBJECTIVE Subjective Patient information: Note initiated : 03/16/22 at 5:02 pm Service Date, if different from initiated Date: [] Patient: Emelia Candelaria 66 y/o F admitted on 03/14/22 for foot pain/possible infection. Chief Complaint: [] Principal diagnosis: RIGHT dorsal foot cellultis / dermatitis. Additional PMFSH (Level 3 Only): Consultation requested by Dr. Roberts, Hospitalist for evaluation of RIGHT dorsal foot / bruise site. Admitted via ER over weekend by Dr Rankin, Hospitalist physician for sepsis cellulitis from an area of ruptured skin blister of RIGHT dorsal foot. Treated with local wound care and IV antibiotics. Wound care service consulted for evaluation and wound management of RIGHT foot site. Saw the chart and examined patient and RIGHT foot wound site with Elizabeth ALBERT, Inpatient wound care nurse. 66/F Established patient at wound care clinic [facility] and last seen there 4 years ago. Constitutional Vitals: Vital Signs Temp Pulse Resp BP Pulse Ox O2 Del Method O2 Flow Rate 98.4 F 88 18 123/83 95 2 03/16/22 15:40 03/16/22 15:40 03/16/22 15:40 03/16/22 15:40 03/16/22 15:40 03/16/22 15:40 03/16/22 15:40 Period Temp Pulse Resp BP Sys/Tomas Pulse Ox O2 Del Method O2 Flow Rate Last 24 Hr 97.9 F-98.8 F 69-95 16-24 105-136/75-89 92-97 Nasal Cannula- Nasal Cannula 2-2 Intake and Output 03/16/22 03/16/22 03/16/22 05:59 13:59 21:59 Intake Total 469 1420 500 Output Total 700 400 Balance -231 1020 500 Intake & Output: Intake & Output 03/16/22 03/16/22 03/16/22 05:59 13:59 21:59 Intake Total 469 1420 500 Output Total 700 400 Balance -231 1020 500 Intake: Nourishment/Supplement quantity 150 (ml) Beer quantity 20 IV 469 50 500 Sodium Chloride 0.9% 500 ml @ 469 500 50 mls/hr IV .Q10H [facility] Rx#: [id number] Rocephin 2 gm In Dextrose 5% in 50 Water 50 ml @ 100 mls/hr IV Q24H [facility] Rx#:[id number] Oral 1200 Output: Void Amount 700 400 Other: Meal Lunch Percent of Meal Consumed 100% Feeding Ability Assist with Tray Set Up Nourishment/Supplement name Ensure Urine Appearance Clear Clear Urine Color Dark Yellow Yellow Yellow Urine Odor Normal Stool Size Moderate Moderate Moderate Stool Color Brown Brown Brown Stool Consistency Loose Loose Liquid # Voids 1 1 1 # Bowel Movements 1 1 General appearance: moderate distress (Moderate distress and SOB with exertion coughing. This is her baseline. COPD, everyday smoker. Drinks alcohol regularly.) and thin Head Head exam: Present atraumatic and normocephalic Eye Eye exam: Present PERRL ENT ENT exam: Present mucous membranes moist and normal oropharynx Neck Neck exam: Present full ROM Respiratory Respiratory exam: Present decreased breath sounds (Bases. Has to pause and take deep breath but able to speak full sentences.) Cardiovascular Cardiovascular exam: Present normal rate and rhythm GI/Abdominal GI/Abdominal exam: Present normal bowel sounds and soft Extremities Exam Additional comments: Moves all extremities. Soft tissue edema of RIGHT dorsal foot with areas of dry crusts and scabs. Ruptured blister versus hematoma site. Neurological Exam Additional comments: Unremarkable examination NO lateralizing deficits noted. She is at her baseline. Psychiatric Additional comments: Admits to anxiety. Her good friend is undecane of hospice for terminal illness. Patient is worried and this is causing her to drink more alcohol and smoke cigarettes more than her usual tmes. Expanded Psychiatric Exam Focused psych exam: Present internal stimuli (Anxious.) and paranoid Skin Additional comments: Dry wrinkled and scaly atrophic skin with striae, Expanded Skin Exam Body image: 1. Additional findings Additional findings: Firm area with dry bruised blistered skin over old hematoma site. A/P Narrative A/P Narrative: Assessment: Improved Dermatitis / cellulitis RIGHT dorsal foot, Still has dry adherent scales. Toenails are deformed and compacted with fungus debris. Plan of Treatment: Plan: Local wound care MIST treatment daily. Following patient with Hospitalist Physician. Time Spent With Patient Time: Total time spent is greater than 50% in coordination of care (as documented) at patient's floor/unit and/or counseling patient: Total time spent with greater than 50% in coordination of care (as documented) at patient's floor/unit and/or counseling patient:: 35 - 50 minutes
[2022-03-17] MEDS: HYDROcodone/APAP 10/325MG TABLET PO PRN ×6 (00:03→20:40)
[2022-03-17] MEDS: 0.9 % SODIUM CHLORIDE 500 ML IV SCH ×3 (00:49→21:05)
[2022-03-17] MEDS: 0.9 % SODIUM CHLORIDE 10 ML SYRINGE IV SCH ×3 (05:06→21:07)
[2022-03-17] MEDS: KETOROLAC 15 MG/ML VIAL IV PRN ×2 (06:06→19:39)
[2022-03-17] MEDS: predniSONE 5 MG TABLET PO SCH (06:54)
[2022-03-17] MEDS: ENOXAPARIN 30 MG/0.3 ML SYRINGE SQ SCH (08:29)
[2022-03-17] MEDS: BUDESONIDE FORMOTEROL INH SCH ×3 (08:31→20:01)
[2022-03-17] MEDS: DOCUSATE SODIUM 100 MG CAPSULE PO SCH ×2 (08:31→20:01)
[2022-03-17] MEDS: cefTRIAXone 2 GM in DEXTROSE 5% IN WATER 50 ML IV SCH (09:00)
[2022-03-17] MEDS: NICOTINE 21 MG PATCH TOPICAL SCH (10:19)
[2022-03-17] MEDS: NICOTINE 14 MG PATCH TOPICAL SCH (10:19)
[2022-03-17] MEDS: LOPERAMIDE 2 MG CAPSULE PO PRN ×2 (10:51→18:48)
[2022-03-17] MEDS: IPRATROPIUM/ALBUTEROL 3 ML AMPUL.NEB NEB PRN ×2 (12:18→20:07)
--- NOTE | 2022-03-17 12:46 | Internal Med Progress Note ---
SUBJECTIVE Subjective Patient information: Note initiated : 03/17/22 at 12:46 pm Service Date, if different from initiated Date: [] Patient: Emelia Candelaria 66 y/o F admitted on 03/14/22 for foot pain/possible infection. Chief Complaint: [] Principal diagnosis: RIGHT dorsal foot cellultis / dermatitis. Interval history: 03/16 Patient complaining of severe pain in her right foot. Added Dilaudid IV and Toradol IV as needed. Consulted Dr. Temlpe today to evaluate the patient's wound, he feels the patient has a organizing hematoma on that foot. Continue ceftriaxone for now. Patient also having loose stools, will monitor and if this persists evaluate for C. difficile. 03/17 Patient is noticeably weak when ambulating, awaiting PT recommendations. At this point it is likely the patient will discharge home with home health unless physical therapy recommends otherwise and the patient is amenable to low intensi ty rehab. Continue wound cares, TBI today. Multiple loose stools but not watery stools. Added Imodium as needed. Physical exam Head: Atraumatic, normal inspection. Eyes: normal appearance, no scleral icterus. Respiratory: Nasal cannula oxygen supplementation, no respiratory distress. Cardiovascular: normal rate and rhythm, S1, S2. GI/Abdominal: soft, nontender, no guarding. Extremities: Fluctuant area on dorsal aspect of right foot, healing right calf wound, chronic left calf wound. Neurological: CN II-XII intact, intact motor, intact sensation. Psychiatric: normal mood. Skin: warm, normal color Constitutional Vitals: Vital Signs Temp Pulse Resp BP Pulse Ox O2 Del Method O2 Flow Rate 97.3 F 70 16 128/73 96 2 03/17/22 08:00 03/17/22 12:18 03/17/22 12:18 03/17/22 08:00 03/17/22 12:18 03/17/22 12:18 03/17/22 12:18 Period Temp Pulse Resp BP Sys/Tomas Pulse Ox O2 Del Method O2 Flow Rate Last 24 Hr 97.3 F-98.4 F 70-88 16-18 119-144/73-89 93-98 Nasal Cannula- Room Air 2-3 Intake and Output 03/16/22 03/17/22 03/17/22 21:59 05:59 13:59 Intake Total 740 700 550 Output Total 600 1575 400 Balance 140 -875 150 Weight 39.236 kg Intake & Output: Intake & Output 03/16/22 03/17/22 03/17/22 21:59 05:59 13:59 Intake Total 740 700 550 Output Total 600 1575 400 Balance 140 -875 150 Weight 39.236 kg Intake: IV 500 500 550 Sodium Chloride 0.9% 500 ml @ 500 500 500 50 mls/hr IV .Q10H [facility] Rx#: [id number] Rocephin 2 gm In Dextrose 5% in 50 Water 50 ml @ 100 mls/hr IV Q24H [facility] Rx#:[id number] Oral 240 200 Output: Void Amount 300 1575 Urine/Stool Mix 300 400 Other: Meal Dinner Percent of Meal Consumed 100% Feeding Ability Independent Urine Appearance Clear Clear Urine Color Yellow Yellow Urine Odor Normal Normal Stool Size Small Small Stool Color Brown Brown Brown Stool Consistency Soft Soft Soft Liquid Loose # Voids 1 1 # Bowel Movements 1 1 OBJ DATA Labs CBC & Chem 7: 03/15/22 05:28 03/15/22 05:28 Labs: Abnormal Lab Results 03/15/22 03/14/22 03/14/22 05:28 18:02 18:02 Lymph # (Auto) POC VBG pCO2 at Temp POC VBG pO2 POC VBG HCO3 POC VBG Total CO2 POC Venous O2 Sat POC VBG Base Excess VBG Lactic Acid POC Chloride Chloride 93 L POC Total CO2 Anion Gap 6.0 L Creatinine 0.3 L 0.4 L POC Creatinine Uric Acid 2.4 L C-Reactive Protein 4.70 H Total Protein 5.7 L Albumin 3.0 L 03/14/22 03/14/22 03/14/22 18:02 17:54 17:54 Lymph # (Auto) 1.46 L POC VBG pCO2 at Temp 66.4 H* POC VBG pO2 23 L POC VBG HCO3 35.3 H POC VBG Total CO2 37.0 H POC Venous O2 Sat 34.0 L POC VBG Base Excess 9.0 H* VBG Lactic Acid 2.7 H POC Chloride 95 L Chloride POC Total CO2 33.0 H Anion Gap Creatinine POC Creatinine 0.3 L Uric Acid C-Reactive Protein Total Protein Albumin Meds: Medications Acetaminophen (Acetaminophen 325 Mg Tablet) 650 mg PO Q6HP PRN; Protocol PRN Reason: Per Pain Protocol/Fever > 101 Hydrocodone Bitart/Acetaminophen (Hydrocodone/Apap 10/325mg Tablet) 1 tab PO Q4HP PRN; Protocol PRN Reason: pain Last Admin: 03/17/22 12:07 Dose: 1 tab Albuterol/Ipratropium (Ipratropium/Albuterol 3 Ml Ampul.Neb) 3 ml NEB Q4HP PRN PRN Reason: Shortness Of Breath Last Admin: 03/17/22 12:18 Dose: 3 ml Alprazolam (Alprazolam 0.5 Mg Tablet) 0.5 mg PO TIDP PRN PRN Reason: Anxiety Last Admin: 03/16/22 13:22 Dose: 0.5 mg Docusate Sodium (Docusate Sodium 100 Mg Capsule) 100 mg PO BID [facility] Last Admin: 03/17/22 08:31 Dose: Not Given Enoxaparin Sodium (Enoxaparin 30 Mg/0.3 Ml Syringe) 30 mg SQ DAILY [facility] Last Admin: 03/17/22 08:29 Dose: 30 mg Ceftriaxone Sodium 2 gm/ (Dextrose) 50 mls @ 100 mls/hr IV Q24H [facility]; Protocol Last Infusion: 03/17/22 11:45 Dose: Infused Potassium Chloride 40 meq/ (Dextrose) 520 mls @ 130 mls/hr IV UD PRN PRN Reason: Potassium < 3 Magnesium Sulfate (Magnesium Sulfate) 2 gm in 50 mls @ 50 mls/hr IV UD PRN PRN Reason: Magnesium </= 1.6 Sodium Chloride (Sodium Chloride 0.9%) 500 mls @ 50 mls/hr IV .Q10H [facility] Last Admin: 03/17/22 10:51 Dose: 50 mls/hr Ketorolac Tromethamine (Ketorolac 15 Mg/Ml Vial) 15 mg IV Q6HP PRN PRN Reason: Pain Stop: 03/18/22 11:11 Last Admin: 03/17/22 06:06 Dose: 15 mg Loperamide HCl (Loperamide 2 Mg Capsule) 2 mg PO PRN PRN PRN Reason: Diarrhea Last Admin: 03/17/22 10:51 Dose: 2 mg Nicotine (Nicotine 21 Mg Patch) 21 mg TOPICAL DAILY@1000 [facility] Last Admin: 03/17/22 10:19 Dose: 21 mg Nicotine (Nicotine 14 Mg Patch) 14 mg TOPICAL DAILY@1000 [facility] Last Admin: 03/17/22 10:19 Dose: 14 mg Ondansetron HCl (Ondansetron 4 Mg/2 Ml Vial) 4 mg IV Q4HP PRN PRN Reason: Nausea And Vomiting Budesonide- Formoterol 160-4.5 Mcg Inhaler 2 dose INH TID [facility] Last Admin: 03/17/22 08:31 Dose: 2 dose Polyethylene Glycol (Polyethylene Glycol 3350 17 Gm Packet) 17 gm PO DAILYP PRN PRN Reason: Constipation Potassium Chloride (Potassium Chloride 20 Meq Tablet) 40 meq PO UD PRN PRN Reason: Potssium is 3-3.5 Potassium Chloride (Potassium Chloride 20 Meq Tablet) 40 meq PO UD PRN PRN Reason: Potassium < 3 Prednisone ([facility] 5 Mg Tablet) [facility] Last Admin: 03/17/22 06:54 Dose: 5 mg Senna (Sennosides 1 Tablet) 2 tab PO DAILYP PRN PRN Reason: Constipation Sodium Chloride (0.9 % Sodium Chloride 10 Ml Syringe) 10 ml IV Q8 [facility] Last Admin: 03/17/22 05:06 Dose: Not Given A/P Narrative A/P Narrative: A: *RLE/Foot cellulitis/ulcers/hematoma: *Resolved sepsis w/ lactic acidosis: 2/2 above *COPD (2-3L@home)/Pulm HTN: *Immunosuppression with prednisone: For COPD *Tobacco abuse: 1.5ppd *EtOH abuse: 3-4 beers@night *Chronic LBP/DJD: Plan: -Start Keflex, discontinue Rocephin, plan to treat for a total of 5 to 7 days. -Analgesics as needed. -Wound care, Dr. Temple consulted. -Continue home IH's & O2 -cont home prednisone -nutrition support -Nicotine patch, Smoking cessation counseling -PT/OT -ppx: Lovenox -CODE STATUS: Full -Disposition: Probably home with home health, possibly tomorrow. Plan of Treatment: Plan: Local wound care MIST treatment daily. Following patient with Hospitalist Physician. Time Spent With Patient Time: Total time spent is greater than 50% in coordination of care (as documented) at patient's floor/unit and/or counseling patient: QUALITY VTE Deep Vein Thrombosis/Pulmonary Embolism Present on Admission: No
[2022-03-18] MEDS: HYDROcodone/APAP 10/325MG TABLET PO PRN ×3 (01:17→09:24)
[2022-03-18] MEDS: LOPERAMIDE 2 MG CAPSULE PO PRN (05:42)
[2022-03-18] MEDS: 0.9 % SODIUM CHLORIDE 500 ML IV SCH (05:57)
[2022-03-18] MEDS: 0.9 % SODIUM CHLORIDE 10 ML SYRINGE IV SCH (05:57)
[2022-03-18] MEDS: predniSONE 5 MG TABLET PO SCH (08:30)
[2022-03-18] MEDS: ENOXAPARIN 30 MG/0.3 ML SYRINGE SQ SCH (08:30)
[2022-03-18] MEDS: CEPHALEXIN 500 MG CAPSULE PO SCH ×2 (08:30→13:02)
[2022-03-18] MEDS: IPRATROPIUM/ALBUTEROL 3 ML AMPUL.NEB NEB PRN (08:36)
[2022-03-18] MEDS: BUDESONIDE FORMOTEROL INH SCH (08:59)
[2022-03-18] MEDS: DOCUSATE SODIUM 100 MG CAPSULE PO SCH (09:10)
--- NOTE | 2022-03-18 10:01 | General Surgery Progress Note ---
SUBJECTIVE Subjective Patient information: Note initiated : 03/18/22 at 9:56 am Service Date, if different from initiated Date: [] Patient: Emelia Candelaria 66 y/o F admitted on 03/14/22 for foot pain/possible infection. Chief Complaint: [] Principal diagnosis: RIGHT dorsal foot cellultis / dermatitis. Additional PMFSH (Level 3 Only): Patient on rounds with Cirilo Ryan RN and Eilzabeth Sepulveda RN RIGHT dorsal foot inflammatory changes resolved well. Patient keen to go home to take care of her friend. Constitutional Vitals: Vital Signs Temp Pulse Resp BP Pulse Ox O2 Del Method O2 Flow Rate 98.2 F 85 20 135/83 98 3 03/18/22 08:00 03/18/22 08:40 03/18/22 08:40 03/18/22 08:00 03/18/22 08:40 03/18/22 08:40 03/18/22 08:40 Period Temp Pulse Resp BP Sys/Tomas Pulse Ox O2 Del Method O2 Flow Rate Last 24 Hr 97.3 F-98.2 F 70-85 16-20 128-151/70-89 92-100 Nasal Cannula-N angela Cannula 2-3 Intake and Output 03/17/22 03/18/22 03/18/22 21:59 05:59 13:59 Intake Total 1650 240 Output Total 450 725 150 Balance 1200 -485 -150 Weight 89 lb Intake & Output: Intake & Output 03/17/22 03/18/22 03/18/22 21:59 05:59 13:59 Intake Total 1650 240 Output Total 450 725 150 Balance 1200 -485 -150 Weight 89 lb Intake: IV 500 Sodium Chloride 0.9% 500 ml @ 500 50 mls/hr IV .Q10H [facility] Rx#: [id number] Oral 1150 240 Output: Void Amount 450 725 150 Other: Meal Lunch Percent of Meal Consumed 50% Feeding Ability Independent Urine Appearance Clear Clear Clear Urine Color Bright Yellow Yellow Bright Yellow Urine Odor Normal Normal Stool Size Small Small Stool Color Brown Brown Stool Consistency Soft Soft Liquid # Voids 1 # Bowel Movements 1 1 Exam: 03/18/2022 AVSS. No changes WEI. L/E Resolving inflammation RIGHT dorsal foot. Soft skin, serous drainage from hematoma site. A/P Narrative A/P Narrative: Assessment: Satisfactory resolution of SSTI RIGHT dorsal foot. Responded well to MIST therapy/ local wound care. Discharge plan noted and agreed. PO antibiotics. For beside debridement and tissue for c/s. Plan of Treatment: Plan: Wound care orders and HHC per wound nurse, F/U at wound care center. Call for appointment, Spoke with patient at length. Answered her Qs. Time Spent With Patient Time: Total time spent is greater than 50% in coordination of care (as documented) at patient's floor/unit and/or counseling patient: Total time spent with greater than 50% in coordination of care (as documented) at patient's floor/unit and/or counseling patient:: 25 - 35 minutes
--- NOTE | 2022-03-18 10:14 | Discharge Summary ---
Discharge Provider Provider IMPORTANT FOLLOW-UP INFORMATION FOR PCP: Patient information: Note initiated : 03/18/22 at 10:12 am Service Date, if different from initiated Date: [] Patient: Emelia Candelaria 66 y/o F admitted on 03/14/22 for foot pain/possible infection. Chief Complaint: [] Date of admission: 03/14/22 21:17 Discharge date: 03/18/22 Primary care physician: Isaias Viveros Consults: 03/14/22 Consult to Physician [CONS] Stat Comment: Consulting Provider: Efren Rankin Reason For Exam: Physician to Consult 03/16/22 11:29 Consult to Physician [CONS] Routine Comment: Consulting Provider: Soto Sam Reason For Exam: Physician to Consult COURSE Hospital Course Hospital course: Ms. Candelaria is a 66 year old F Presents the ED with foot pain and swelling. Sounds like this has been happening over the past week or 2. She says her right foot on the top started swelling into a blister and then several days ago it opened up and drained quite a bit of pinkish fluid. Is also had increased redness from her foot up to her calf and swelling and tenderness. She also complained of episode of fever and chills the other day. In the ED she was evaluated and had x-ray of the foot. Which I do not see any bony abnormalities near the site of cellulitis. On vitals she was tachycardic at 115 and had a respiratory rate of 22 on admit. Blood pressure was initially elevated but came down on its own. She had a mild elevation of lactate at 2.7. Chemistry was unremarkable Patient drinks 3-4 beers per night. She smokes 1/2 pack cigarettes daily she is on 2 to 3 L of oxygen day and night for COPD with has a history of pulmonary hypertension. 03/15 Poor sleep. Tachycardia improving. Lactic acidosis resolved. Wound care referral. Continue current therapy IV antibiotics. 05/16 Patient complaining of severe pain in her right foot. Added Dilaudid IV and Toradol IV as needed. Consulted Dr. Temple today to evaluate the patient's wound, he feels the patient has a organizing hematoma on that foot. Continue ceftriaxone for now. Patient also having loose stools, will monitor and if this persists evaluate for C. difficile. 03/17 Patient is noticeably weak when ambulating, awaiting PT recommendations. At this point it is likely the patient will discharge home with home health unless physical therapy recommends otherwise and the patient is amenable to low intensity rehab. Continue wound cares, TBI today. Multiple loose stools but not watery stools. Added Imodium as needed. 03/18 Discharged to home with home health to include daily wound care. Follow-up in the wound care clinic. Discharged with 3 more days of antibiotic coverage with Keflex. Physical exam Head: Atraumatic, normal inspection. Eyes: normal appearance, no scleral icterus. Respiratory: Nasal cannula oxygen supplementation, no respiratory distress. Cardiovascular: normal rate and rhythm, S1, S2. GI/Abdominal: soft, nontender, no guarding. Extremities: Evolving wound on dorsal aspect of right foot, decrease in fluctuance since admission, healing right calf wound, chronic left calf wound. Neurological: CN II-XII intact, intact motor, intact sensation. Psychiatric: normal mood. Skin: warm, normal color Discharge diagnosis: Sepsis secondary to right foot cellulitis Secondary discharge diagnosis: Right foot wound and hematoma Time Spent with Patient Time attestation: Total time spent providing and/or coordinating discharge services: Time spent: Greater than 30 minutes EXAM Constitutional Vitals: Temp Pulse Resp BP Pulse Ox O2 Del Method O2 Flow Rate 98.2 F 85 20 135/83 98 3 03/18/22 08:00 03/18/22 08:40 03/18/22 08:40 03/18/22 08:00 03/18/22 08:40 03/18/22 08:40 03/18/22 08:40 Discharge Data Data Completed and Pending Labs on day of discharge: Preliminary micro results at discharge 03/14/22 18:17 Blood Culture - Preliminary Blood 03/14/22 18:10 Blood Culture - Preliminary Blood Discharge Plan Patient/Caregiver Discharge Instructions Activity: increase activity as tolerated Diet: Regular Diet Prescriptions: New acetaminophen 325 mg Tablet 325 mg PO Q6HP PRN (Reason: Per Pain Protocol/Fever > 101) Qty: 30 0RF cephalexin 500 mg Capsule 500 mg PO QID 3 Days Qty: 12 0RF Continued hydrocodone-acetaminophen 10-325 mg tablet 1 tab PO Q4H PRN (Reason: pain) Qty: 100 0RF albuterol sulfate 90 mcg/actuation HFA aerosol inhaler See Dose Instructions INHALATION Q4H PRN (Reason: asthma) Qty: 36 12RF Dose Instruction: Inhale 1-2 puffs INHALATION Q4H PRN Q4H Rx Instructions: Inhale 1-2 puffs INHALATION Q4H PRN budesonide-formoterol 160-4.5 mcg/actuation HFA aerosol inhaler 2 inh INHALATION TID Qty: 18 12RF prednisone 5 MG tablet 5 mg PO DAILY alprazolam 0.5 mg tablet 1 tab PO TIDP PRN (Reason: Anxiety) ergocalciferol (vitamin D2) 1,250 mcg (50,000 unit) capsule 1 cap PO WEEKLY Follow Up Plan Follow up with: Soto Sam MD [Physician] - (Right foot wound care. ) Isaias Viveros MD [Primary Care Provider] - Patient Disposition: Home Health Service Plan of Treatment: Plan: Local wound care MIST treatment daily. Prognosis: Fair Overall status at discharge: patient is progressing back to baseline Discharge Orders: Discharge Order (Routine); Ordered 03/18/22 Ordered By: Wang Roberts QUALITY VTE Deep Vein Thrombosis/Pulmonary Embolism Present on Admission: No
--- NOTE | 2022-03-18 10:20 | General Surgery Procedure Note ---
Date of procedure: Note initiated : 03/18/22 at 10:16 am Service Date, if different from initiated Date: [] Pre-op diagnosis: RIGHT dorsal foot Hematoma site, Serous drainage. Post-op diagnosis: same Procedure: Bedside excision debridement. Tissue for c/s Findings: 4 x 3 x 1 CM wound after debridement Stage 3. . Anesthesia: none Surgeon: Soto Sam Estimated blood loss: 2 Pathology: other (Tissue for c/s.) Condition: stable Disposition: floor
--- NOTE | 2022-03-18 10:43 | Operative Note ---
DATE OF OPERATION: 03/18/2022 DATE OF PROCEDURE: 03/18/2022 PREOPERATIVE DIAGNOSES: 1. Soft tissue hematoma dorsal surface, right foot in a patient with diabetes and neuropathy, skin and skin structure infection. 2. Satisfactory resolution of inflammation with local wound care based treatment and IV antibiotics. POSTOPERATIVE DIAGNOSES: 1. Soft tissue hematoma dorsal surface, right foot in a patient with diabetes and neuropathy, skin and skin structure infection. 2. Satisfactory resolution of inflammation with local wound care based treatment and IV antibiotics. PROCEDURE: Excision, debridement of the wound and evacuation of hematoma. SURGEON: Soto Sam M.D. ANESTHESIA: None. PATHOLOGY: Tissue obtained for culture and sensitivity. FINDINGS: Final wound dimensions 4 x 3 x 1 cm after debridement. This is a stage III wound with exposed synovial structures and the wound base. ESTIMATED BLOOD LOSS: 2 mL. INSTRUMENT COUNTS: Count of swabs and instruments was correct. INDICATIONS: This is a patient with multiple comorbidities. She was admitted to the hospital with soft tissue inflammation, cellulitis on the dorsal surface of right foot. She has PAD and diabetes. Patient was treated initially with IV antibiotics, local wound care and MIST therapy. After a satisfactory response to this treatment, she is now ready for debridement. PROCEDURE NOTE IN DETAIL: I explained the procedure to the patient in the presence of nursing staff. I proceeded to carry out this debridement at the bedside. No anesthesia was used. Using sterile precautions, the site was cleaned and prepped with chlorhexidine solution. It was appropriately draped. The most fluctuant part of the skin was excised using pickup and scissors from the point of drainage. All the nonviable skin was removed. The wound was copiously irrigated with Vashe solution. We obtained soft tissue from the base of wound for culture and sensitivity. Dressings consisted of Adaptic, Exufiber, 4 x 4 gauze and Kerlix, Thomas bandages, respectively. Procedure well tolerated. VD:keisha Job ID: [id number] Doc ID: [id number] Soto Sam MD [facility]
[2022-03-18] MEDS: NICOTINE 21 MG PATCH TOPICAL SCH (10:56)
[2022-03-18] MEDS: NICOTINE 14 MG PATCH TOPICAL SCH (10:56)
== END 2022-03-18 13:24 | disposition home health service (06) | DRG 854 ==
LOC: ED 17:27 → MEDSUR 21:17
PROVIDERS: ADMIT Internal Medicine; ATTEND Internal Medicine